=== PATIENT | female | born 1960 | race Caucasian/White ===

== ENCOUNTER 2022-09-21 21:20 | Inpatient (IN) | payer BC ==
[~2022-09-21] VITALS: Ht 162.6 cm; Wt 102.5 kg
[2022-09-21] MEDS ORDERED: methylPREDNISolone 125 MG (Solu-MEDROL) VIAL IV STA (21:29)
[2022-09-21] MEDS ORDERED: RT-ALBUTEROL SULF 2.5 MG/3 ML PRE-MIX VIAL INH STA (21:29)
[2022-09-21] MEDS ORDERED: RT-ALBUTEROL/IPRATROPIUM 3 ML (DUONEB) VIAL INH ONE (21:30)
[2022-09-21] MEDS ORDERED: ASPIRIN 81 MG CHEW (CHILDREN'S ASA) PO ONE (21:30)
--- NOTE | 2022-09-21 21:38 | ED Respiratory ---
General Chief Complaint: Respiratory Problems Stated Complaint: SOA Nursing Triage Note: PT AMB TO ED BY POV WITH C/O SOB. PT REPORTS SHE IS CHRONICALLY SOB, BUT AT HOME PULSE OX READ 45-50% TODAY. PT REPORTS SHE HAS HAD NAUSEA AND INTERMITTENT DIARRHEA SINCE August. DENIES CP, FEVER, COUGH OR CONGESTION. Source: patient History of Present Illness Date Seen by Provider: Sep 21, 2022 Time Seen by Provider: 21:25 Initial Comments PT ARRIVES VIA POV FROM HOME, WITH A FEMALE FRIEND. C/O SHORTNESS OF BREATH PT IS A FORMER SMOKER, AND STATES SHE IS CHRONICALLY SHORT OF BREATH, BUT WORSE TODAY. SHE CHECKED HER O2 SAT AT HOME AND IT WAS 45-50% ON ROOM AIR. SHE DOES NOT HAVE HOME O2 OR INHALER OR NEBULIZER SHE DENIES CHEST PAIN DENIES FEVER DENIES COUGH. HAS HAD SWELLING IN LEGS--HAD OUTPATIENT VENOUS DOPPLER OF LEFT LEG TODAY, RESULTS UNKNOWN. NO CALF PAIN NO PALPITATIONS. SHE HAS HAD NAUSEA AND DIARRHEA OFF AND ON SINCE 09/14/22 SHE HAS HISTORY OF HTN, HYPERLIPIDEMIA, NIDDM. SHE SMOKED 1 PPD, QUIT AGE 48. DENIES ANY HISTORY OF DIAGNOSED RESPIRATORY PROBLEMS. SHE DENIES ETOH OR DRUG USE SHE HAS HAD CHOLECYSTECTOMY, APPENDECTOMY, HYST/BSO, PARTIAL VULVECTOMY FOR V.I.N. SHE HAS HAD COVID VACCINE X 1. SHE STATES SHE HAS HAD COVID TWICE--"MILD CASES" --LAST TIME WAS APRIL OF THIS YEAR. NO TREATMENT, PER PT. NO RECENT TRAVEL OR PROLONGED SITTING, ETC. PT MOVED HERE ABOUT A YEAR AGO FROM [place], [place]-AND HAD MOVED THERE FROM [place], [place] PCP: ALPESH DONG Allergies and Home Medications Allergies Coded Allergies: Sulfa (Sulfonamide Antibiotics) (Verified Allergy, Unknown, 09/21/22) lisinopril (Verified Allergy, Unknown, 09/21/22) metronidazole (Verified Allergy, Unknown, 09/21/22) Patient Home Medication List Home Medication List Reviewed: Yes Review of Systems Review of Systems Constitutional: no symptoms reported; No diaphoresis, No fever EENTM: no symptoms reported Respiratory: see HPI; No cough; short of breath Cardiovascular: No chest pain; edema; No palpitations, No syncope, No vascular heart diseas Gastrointestinal: see HPI; No abdominal pain; diarrhea, nausea; No vomiting Genitourinary: no symptoms reported Musculoskeletal: no symptoms reported Skin: no symptoms reported Psychiatric/Neurological: No Symptoms Reported Hematologic/Lymphatic: No Symptoms Reported Immunological/Allergic: no symptoms reported Past Brnxovl-Uzmlsz-Carkqk Hx Patient Social History Tobacco Use?: Yes Tobacco type used: Cigarettes Smoking Status: Former Smoker Use of E-Cig and/or Vaping dev: No Substance use?: No Alcohol Use?: No Pt feels they are or have been: No Immunizations Up To Date Influenza Vaccine Up-to-Date: No; Not Current First/Initial COVID19 Vaccinat: X1 Past Medical History Surgery/Hospitalization HX: DM2 Surgeries: Yes Appendectomy, Gallbladder, Hysterectomy, Oophorectomy, Orthopedic Respiratory: Yes (CHRONIC DYSPNEA) Cardiac: Yes High Cholesterol, Hypertension Neurological: No Reproductive Disorders: Yes (V.I.N.--S/P PARTIAL VULVECTOMY; HYST/BSO) Female Reproductive Disorders: Menstrual Problems 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 -RIGHT KNEE SCOPE Physical Exam Vital Signs - First Documented Capillary Refill : Less Than 3 Seconds Height: '" Weight: lbs. oz. kg; 35.00 BMI Method: General Appearance: WD/WN, no apparent distress, other (PT IS TALKING IN FULL SENTENCES, LAUGHING, DOES NOT APPEAR TO BE IN ANY DISCOMFORT OR DISTRESS AND IS VERY NON-CHALANT. VERY PLEASANT. SHE WALKS IN ON HER OWN WITHOUT DIFFICULTY. 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 therapist II-XII nml as tested, no motor/sensory deficits, alert, normal mood/affect, oriented x 3 Skin: normal color, warm/dry; No rash Focused Exam Sepsis Stage: Sepsis Possible Source: Pulmonary Lactate Level 09/21/22 21:30: Lactic Acid Level 2.30*H Time of Focused Exam: 23:00 Respiratory: No Accessory Muscle Use, No Respiratory Distress, Rales (RLL) Cardiovascular: No Murmur, Normal Peripheral Pulses, Tachycardia Capillary Refill: Less Than 3 Seconds Skin: normal color, warm/dry Lactic Acid Level Laboratory Tests Test 09/21/22 21:30 Lactic Acid Level 2.30 MMOL/L (0.50-2.00) *H Within 3hrs of presentation: Admin fluids, Admin ABX, Blood cultures prior to ABX's, Focus exam, Lactate level Progress/Results/Core Measures Suspected Sepsis SIRS Temperature: Pulse: 118 Respiratory Rate: 22 Laboratory Tests 09/21/22 21:30: White Blood Count 13.7H Blood Pressure 158 /101 Mean: 120 09/21/22 21:30: Lactic Acid Level 2.30*H Laboratory Tests 09/21/22 21:30: Creatinine 0.85, INR Comment 1.0, Platelet Count 240, Total Bilirubin 0.8 Results/Orders Lab Results Laboratory Tests Test 09/21/22 21:28 09/21/22 21:30 09/21/22 21:46 09/21/22 23:09 Range/Units Influenza Type A (RT-PCR) Not Detected Not Detecte Influenza Type B (RT-PCR) Not Detected Not Detecte SARS-CoV-2 RNA (RT-PCR) Not Detected Not Detecte White Blood Count 13.7 H 4.3-11.0 10^3/uL Red Blood Count 5.16 H 3.80-5.11 10^6/uL Hemoglobin 11.0 L 11.5-16.0 g/dL Hematocrit 41 35-52 % Mean Corpuscular Volume 80 80-99 fL Mean Corpuscular Hemoglobin 21 L 25-34 pg Mean Corpuscular Hemoglobin Concent 27 L 32-36 g/dL Red Cell Distribution Width 19.9 H 10.0-14.5 % Platelet Count 240 130-400 10^3/uL Mean Platelet Volume 12.1 9.0-12.2 fL Immature Granulocyte % (Auto) 1 % Neutrophils (%) (Auto) 84 H 42-75 % Lymphocytes (%) (Auto) 8 L 12-44 % Monocytes (%) (Auto) 6 0-12 % Eosinophils (%) (Auto) 0 0-10 % Basophils (%) (Auto) 1 0-10 % Neutrophils # (Auto) 11.5 H 1.8-7.8 10^3/uL Lymphocytes # (Auto) 1.1 1.0-4.0 10^3/uL Monocytes # (Auto) 0.8 0.0-1.0 10^3/uL Eosinophils # (Auto) 0.0 0.0-0.3 10^3/uL Basophils # (Auto) 0.1 0.0-0.1 10^3/uL Immature Granulocyte # (Auto) 0.1 0.0-0.1 10^3/uL Neutrophils % (Manual) 80 % Lymphocytes % (Manual) 5 % Monocytes % (Manual) 7 % Band Neutrophils 6 % Nucleated Red Blood Cells 4 Reactive Lymphocytes 2 % Percent Immature Platelet Fraction 9.9 H 0.0-7.6 % Polychromasia MODERATE Hypochromasia SLIGHT Anisocytosis MODERATE Prothrombin Time 13.6 12.2-14.7 SEC INR Comment 1.0 0.8-1.4 Activated Partial Thromboplast Time 29 24-35 SEC D-Dimer 0.79 H 0.00-0.49 UG/ML Sodium Level 137 135-145 MMOL/L Potassium Level 4.4 3.6-5.0 MMOL/L Chloride Level 99 98-107 MMOL/L Carbon Dioxide Level 27 21-32 MMOL/L Anion Gap 11 5-14 MMOL/L Blood Urea Nitrogen 14 7-18 MG/DL Creatinine 0.85 0.60-1.30 MG/DL Estimat Glomerular Filtration Rate 76 BUN/Creatinine Ratio 16 Glucose Level 166 H 70-105 MG/DL Lactic Acid Level 2.30 *H 0.50-2.00 MMOL/L Calcium Level 10.6 H 8.5-10.1 MG/DL Corrected Calcium 10.7 H 8.5-10.1 MG/DL Magnesium Level 2.1 1.6-2.4 MG/DL Total Bilirubin 0.8 0.1-1.0 MG/DL Aspartate Amino Transf (AST/SGOT) 33 5-34 U/L Alanine Aminotransferase (ALT/SGPT) 22 0-55 U/L Alkaline Phosphatase 89 40-136 U/L Total Creatine Kinase 28 L 29-168 U/L Creatine Kinase MB 0.7 <6.6 NG/ML Myoglobin 25.8 10.0-92.0 NG/ML Troponin I 0.072 H <0.028 NG/ML B-Type Natriuretic Peptide 294.2 H <100.0 PG/ML Total Protein 7.4 6.4-8.2 GM/DL Albumin 3.9 3.2-4.5 GM/DL Blood Gas Puncture Site RRAD Blood Gas Patient Temperature 37.6 Arterial Blood pH 7.36 L 7.37-7.43 Arterial Blood Partial Pressure CO2 59 H 35-45 MMHG Arterial Blood Partial Pressure O2 71 L 79-93 MMHG Arterial Blood HCO3 32 H 23-27 MMOL/L Arterial Blood Total CO2 34.2 H 21.0-31.0 MMOL/L Arterial Blood Oxygen Saturation 94 94-100 % Arterial Blood Base Excess 7.2 H -2.5-2.5 MMOL/L Zenon Test YES-POS Blood Gas Ventilator Setting NO Blood Gas Inspired Oxygen 10 My Orders Orders - CAROL DAVISON DO Ed Iv/Invasive Line Start (09/21/22 21:24) Ekg Tracing (09/21/22 21:24) O2 (09/21/22 21:24) Monitor-Rhythm Ecg Trace Only (09/21/22 21:24) Chest 1 View, Ap/Pa Only (09/21/22 21:24) Bnp [place] (09/21/22 21:24) Cbc With Automated Diff (09/21/22 21:24) Comprehensive Metabolic Panel (09/21/22 21:24) Creatine Kinase (09/21/22 21:24) Creatine Kinase Mb (09/21/22 21:24) Fibrin Degradation Products (09/21/22 21:24) Lactic Acid Analyzer (09/21/22 21:24) Magnesium (09/21/22 21:24) Protime With Inr (09/21/22 21:24) Partial Thromboplastin Time (09/21/22 21:24) Ua Culture If Indicated (09/21/22 21:24) Blood Culture (09/21/22 21:24) Myoglobin Serum (09/21/22 21:24) Troponin I Janie (09/21/22 21:24) Covid 19 Inhouse Test (09/21/22 21:24) Sputum Culture (09/21/22 21:24) Urine Culture (09/21/22 21:24) Ed Iv/Invasive Line Start (09/21/22 21:24) Ed Iv/Invasive Line Start (09/21/22 21:24) Vital Signs Adult Sepsis Patie Q15M (09/21/22 21:24) O2 (09/21/22 21:24) Remove Rings In Anticipation O (09/21/22 21:24) Influenza A And B By Pcr (09/21/22 21:24) Albuterol Pre-Mix Nebs (Rt) (Proventil (09/21/22 21:29) Albuterol/Ipra Inhalation Soln (Duoneb I (09/21/22 21:30) Dexamethasone Injection (Decadron Injec (09/21/22 21:30) Rt Request For Service (09/21/22 21:29) Methylprednisolone Sod Succ (Solu-Medrol (09/21/22 21:29) Svn Small Volume Nebulizer (09/21/22 21:29) Svn Small Volume Nebulizer (09/21/22 21:29) Aspirin Chewable Tablet (Baby Aspirin Ch (09/21/22 21:30) Ceftriaxone Iv/Im (Rocephin Iv/Im) (09/21/22 22:00) Azithromycin Injection (Zithromax Inject (09/21/22 22:00) Arterial Blood Gas (09/21/22 21:52) Manual Differential (09/21/22 21:30) Arterial Blood Draw - Obtain (09/21/22 ) Ct Angio Chest W (R/O Pe) (09/21/22 22:17) Ed Iv/Invasive Line Start (09/21/22 22:53) Ns Iv 1000 Ml (Sodium Chloride 0.9%) (09/21/22 23:00) Iohexol Injection (Omnipaque 350 Mg/Ml 1 (09/21/22 23:00) Received Contrast (Hold Metformin- Contr (09/21/22 23:00) Sodium Chloride Flush (Catheter Flush Sy (09/21/22 23:00) Ns (Ivpb) (Sodium Chloride 0.9% Ivpb Bag (09/21/22 23:00) Medications Given in ED Current Medications Medications Dose Ordered Sig/Evelyne Route Start Time Stop Time Status Last Admin Dose Admin Albuterol/ Ipratropium 3 ml ONCE ONCE INH 09/21/22 21:30 09/21/22 21:32 DC 09/21/22 21:54 3 ML Aspirin 324 mg ONCE ONCE PO 09/21/22 21:30 09/21/22 21:32 DC 09/21/22 21:42 324 MG Azithromycin 500 mg/Sodium Chloride 255 ml @ 250 mls/hr ONCE ONCE IV 09/21/22 22:00 09/21/22 23:01 DC 09/21/22 22:22 250 MLS/HR Ceftriaxone Sodium 1000 mg/ Sodium Chloride 50 ml @ 100 mls/hr ONCE ONCE IV 09/21/22 22:00 09/21/22 22:29 DC 09/21/22 22:02 100 MLS/HR Dexamethasone Sodium Phosphate 20 mg ONCE ONCE IH 09/21/22 21:30 09/21/22 21:32 DC 09/21/22 21:54 20 MG Iohexol 100 ml ONCE ONCE IV 09/21/22 23:00 09/21/22 23:01 DC 09/21/22 23:01 85 ML Sodium Chloride 10 ml NEEDED PRN IV 09/21/22 23:00 09/21/22 23:02 10 ML Sodium Chloride 100 ml ONCE ONCE IV 09/21/22 23:00 09/21/22 23:01 DC 09/21/22 23:02 80 ML Vital Signs/I&O 09/21/22 09/21/22 09/21/22 09/21/22 21:23 21:23 21:55 22:15 Temp 37.6 Pulse 118 112 Resp 22 23 B/P (MAP) 158/101 (120) Pulse Ox 94 94 94 94 O2 Delivery Simple Mask Simple Mask O2 Flow Rate 15.00 15.00 8.00 100.00 Capillary Refill : Less Than 3 Seconds Blood Pressure Mean: 120 Progress Note : Progress Note VITALS ON ARRIVAL: TEMP 37.6=99.6, HR 113, BP 158/101, RR O2 SAT 60% ON ROOM AIR. PLACED IN ISOLATION ROOM PPE WORN COVID AND FLU TESTING DONE PT IMMEDIATELY PLACED ON O2 AT 15L/NRB AND O2 SATS UP TO 95% RT CONTACTED, AND PT GIVEN NEB TREATMENT AND PLACED ON BIPAP, WITH O2 SATS UP TO 100% LABS INCLUDING ABG'S, CBC, CMP, BNP, TROPONIN, COAGULATION STUDIES, D-DIMER, LACTIC ACID AND BLOOD CULTURES ORDERED IN ADDITION TO CXR AND EKG, AND CT CHEST ANGIOGRAM REVIEWED OUTPATIENT LEFT LOWER EXTREMITY DOPPLER TEST DONE EARLIER TODAY, AND WAS NEGATIVE FOR DVT. GIVEN: -ASPIRIN -SOLU-MEDROL -NEB TREATMENTS -ROCEPHIN + ZITHROMAX -IV FLUIDS--NO AGGRESSIVE FLUIDS, PT IS ALREADY HYPOXIC, WITH ELEVATED TROPONIN AND BNP, WITHOUT HYPOTENSION. -LOVENOX NO DETERIORATION IN PT'S CONDITION DURING ER STAY. VITALS STABLE. PT REMAINED AFEBRILE, NO HYPOTENSION, O2 SATS STAYED 98-100% ON BIPAP. PT STATES SHE FEELS BETTER AT TIME OF ADMIT. PERTINENT LABS: CBC WITH WBC 13.7, HGB 11.0 CMP WITH NORMAL ELECTROLYTES, BUN 14, CR 0.85, GLU 166, CA 10.6 TROPONIN 0.072 BNP 294 D-DIMER 0.79 UA--TRACE LEUKOCYTES, MODERATE BACTERIA, 2-5 WBC ABG'S--PH 7.36, PCO2 59, PO2 71, HCO3 32, O2 SAT 94 ON 10L/NRB EKG UNREMARKABLE CXR WITH RLL INFILTRATE CT CHEST ANGIOGRAM WITH RLL PULMONARY EMBOLISM, WITHOUT PULMONARY INFARCT. DISCUSSED TEST RESULTS, NEED FOR ADMIT AND PT IS AGREEABLE TO PLAN PT WISHES TO BE A FULL CODE. NO PRIOR VISITS HERE COMPUTER SYSTEM SHUT DOWN DURING PT'S ER STAY ECG Initial ECG Impression Date: Sep 21, 2022 Initial ECG Impression Time: 21:40 Initial ECG Rate: 110 Initial ECG Rhythm: S.Tach Initial ECG Intervals: Normal Initial ECG Impression: Nonspecific Changes Initial ECG Comparisson: No Previous ECG Available Comment INTERPRETED BY ME Diagnostic Imaging Comments CXR--PER RADIOLOGIST REPORT AT 2150 Portable chest 9:27 PM There is some increased density in the right medial lung base that could be developing infiltrate. There is no effusion or pneumothorax. Heart size is normal. IMPRESSION: Suspected developing infiltrate right medial lung base. CT CHEST ANGIOGRAM--PER [facility] RADIOLOGIST VIA PHONE AT [phone] AND VIA FAX AT [phone] -RLL PULMONARY EMBOLUS, NO PULMONARY INFARCT. -NON-OCCLUSIVE PULMONARY EMBOLI WITHIN RLL SUBSEGMENTAL PULMONARY ARTERIES. -BILATERAL DEPENDENT ATELECTASIS RIGHT > LEFT. NO LOBAR CONSOLIDATIONS. NO EFFUSIONS. -NO CARDIOMEGALY, NO SIGNIFICANT PERICARDIAL EFFUSION, NO EVIDENCE OF RV DYSFUNCTION. -NO ENLARGED LYMPH NODES Reviewed: Reviewed by Me Departure Communication (Admissions) 2333--SPOKE WITH DR. DELEON, HOSPITALIST, ACCEPTS PT FOR ADMIT. 2334--REPORT TO E-ICU PHYSICIAN. Impression Primary Impression: Acute respiratory failure with hypoxia and hypercapnia Additional Impressions: RLL pneumonia Former smoker Sepsis Elevated troponin Elevated brain natriuretic peptide (BNP) level Right pulmonary embolus HTN (hypertension) NIDDM Disposition: ADMITTED INPATIENT Condition: Improved Admissions Decision to Admit Reason: Admit from ER (General) Decision to Admit/Date: Sep 21, 2022 Time/Decision to Admit Time: 23:35 Departure-Patient Inst. Referrals: RODRÍGUEZ DONG APRN (PCP/Family) Primary Care Physician CAROL DAVISON DO Sep 21, 2022 21:38
--- NOTE | 2022-09-21 21:41 | Diagnostic Imaging Report ---
INDICATION: Shortness of breath Portable chest 9:27 PM There is some increased density in the right medial lung base that could be developing infiltrate. There is no effusion or pneumothorax. Heart size is normal. IMPRESSION: Suspected developing infiltrate right medial lung base. Dictated by: Dictated on workstation # [id number]
[2022-09-21 21:54] LABS: BASOPHILS # (AUTO) 0.1 10^3/uL (0.0-0.1); BASOPHILS % (AUTO) 1 % (0-10); EOSINOPHILS % (AUTO) 0 % (0-10); HEMATOCRIT 41 % (35-52); LYMPHOCYTES # (AUTO) 1.1 10^3/uL (1.0-4.0); LYMPHOCYTES % (AUTO) 8 % (12-44); MEAN CORPUSCULAR HEMOGLOBIN 21 pg (25-34); MEAN CORPUSCULAR HGB CONC 27 g/dL (32-36); MEAN CORPUSCULAR VOLUME 80 fL (80-99); MEAN PLATELET VOLUME 12.1 fL (9.0-12.2); MONOCYTES # (AUTO) 0.8 10^3/uL (0.0-1.0); MONOCYTES % (AUTO) 6 % (0-12); NEUTROPHILS # (AUTO) 11.5 10^3/uL (1.8-7.8); NEUTROPHILS % (AUTO) 84 % (42-75); PLATELET COUNT 240 10^3/uL (130-400); WHITE BLOOD COUNT 13.7 10^3/uL (4.3-11.0)
[2022-09-21 21:57] LABS: ABG BASE EXCESS 7.2 MMOL/L (-2.5-2.5); ABG OXYGEN SATURATION 94 % (94-100); ABG PCO2 59 MMHG (35-45); ABG PH 7.36 (7.37-7.43); ABG PO2 71 MMHG (79-93); ABG TCO2 34.2 MMOL/L (21.0-31.0); ALLENS TEST YES-POS; INSPIRED O2 10; PATIENT TEMP 37.6; VENTILATOR NO
[2022-09-21] MEDS ORDERED: AZITHROMYCIN INJECTION 500 MG in NS (IVPB) 250 ML IV ONE (22:00)
[2022-09-21] MEDS ORDERED: cefTRIAXone IV/IM 1,000 MG in NS (IVPB) 50 ML IV ONE (22:00)
[2022-09-21 22:05] LABS: PROTHROMBIN TIME PATIENT 13.6 SEC (12.2-14.7)
[2022-09-21 22:10] LABS: ALBUMIN 3.9 GM/DL (3.2-4.5); POTASSIUM 4.4 MMOL/L (3.6-5.0)
[2022-09-21 22:12] LABS: CALCIUM 10.6 MG/DL (8.5-10.1)
[2022-09-21 22:13] LABS: TOTAL PROTEIN 7.4 GM/DL (6.4-8.2)
[2022-09-21 22:15] LABS: BILIRUBIN,TOTAL 0.8 MG/DL (0.1-1.0)
[2022-09-21 22:16] LABS: CREATININE SERUM 0.85 MG/DL (0.60-1.30)
[2022-09-21 22:19] LABS: MAGNESIUM 2.1 MG/DL (1.6-2.4)
[2022-09-21 22:27] LABS: CREATINE KINASE MB 0.7 NG/ML (<6.6)
[2022-09-21 22:28] LABS: BAND NEUTROPHILS 6 %; HYPOCHROMASIA SLIGHT; LYMPHOCYTES % (MANUAL) 5 %; MONOCYTES % (MANUAL) 7 %; NEUTROPHILS % (MANUAL) 80 %; NUCLEATED RED BLOOD CELLS 4; POLYCHROMASIA MODERATE; REACTIVE LYMPHOCYTES 2 %
[2022-09-21 22:29] LABS: ANISOCYTOSIS MODERATE
[2022-09-21 22:53] LABS: FIBRIN DEGRADATION PRODUCTS 0.79 UG/ML (0.00-0.49)
[2022-09-21] MEDS ORDERED: NS 100 ML (IVPB) BAG IV ONE (23:00)
[2022-09-21] MEDS ORDERED: IOHEXOL 350 MG/ML 100 ML (OMNIPAQUE 350) VIAL IV ONE (23:00)
[2022-09-21] MEDS ORDERED: HOLD METFORMIN - RECEIVED CONTRAST 20 ML VIAL IV SCH (23:00)
[2022-09-21] MEDS ORDERED: CATHETER FLUSH 10 ML SYR IV PRN (23:00)
[2022-09-21] MEDS ORDERED: NS IV 1000 ML 1,000 ML IV SCH (23:00)
[2022-09-21 23:14] LABS: BILIRUBIN,URINE NEGATIVE (NEGATIVE); CLARITY,URINE SL CLOUDY; COLOR,URINE YELLOW; GLUCOSE, URINE (UA) NEGATIVE (NEGATIVE); KETONES,URINE NEGATIVE (NEGATIVE); LEUKOCYTE ESTERASE ,URINE TRACE (NEGATIVE); NITRITE,URINE NEGATIVE (NEGATIVE); PROTEIN,URINE 1+ (NEGATIVE)
[2022-09-21 23:24] LABS: BACTERIA,URINE MODERATE /HPF; HYALINE CASTS, URINE 0-2 /LPF; RBC,URINE RARE /HPF
[2022-09-21] MEDS ORDERED: ENOXAPARIN 100 MG/1 ML (LOVENOX) SYR SC ONE (23:30)
--- NOTE | 2022-09-21 23:56 | Tele-ICU Progress Note ---
Subjective Date Seen by a Provider: Sep 21, 2022 Subjective/Events-last exam This virtual visit was conducted using real time audio/video. Thank you for asking us to see this patient for hypoxic and hypercapnic respiratory insufficiency due to B pna and R PE. Probable undiagnosed COPD also in view of pH balanced hypercapnia. Initial ER O2 sat 60%. PMH: HTN, HL, DM2. SH: smoking history quit FH: Non-contributory ROS: as in HPI PE: VSS. O2 sat 98% on biPAP HEENT: No obvious masses, adenopathy or JVD. Chest: R sided rales on auscultation. CV: RRR S1 S2 No murmur or added sounds. Abd: Non-tender. Bowel sounds Y. : Unremarkable. 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 No obvious focal findings. Extremities: Trace edema. Capillary refill < 3 seconds. Skin: unremarkable. Results: Elevated WCC 13.7, Lactate 2.3, BNP 294. Decreased Hb 11.0. AB'36/59/71 on 10 LPM. CXR: RLL infilt. CTAC: B pna, R PE. Available chart/ vitals / labs / images reviewed. Video assessment done using teleICU camera, rest of exam as per RN. A/P: Respiratory insufficiency: Continue present management with BiPAP, PRN duonebs, Medrol Monitor for increasing oxygenation needs and/or need for intubation. Critical Care: critically ill patient. Cont. abx, Lovenox. Discussed with RISHI Sanchez and ER MD Dr. Rodriguez. Asked RN to reach out to eICU if any questions or concerns later. Time spent with patient/coordination of care with other health professionals (mins): 25 Sepsis Event Evaluation Height, Weight, BMI Height: '" Weight: lbs. oz. kg; 35.00 BMI Method: Focused Exam Lactate Level 09/21/22 21:30: Lactic Acid Level 2.30*H 09/21/22 23:30: Time of Focused Exam: 23:00 Lactic Acid Level Laboratory Tests Test 09/21/22 21:30 09/21/22 23:30 Lactic Acid Level 2.30 MMOL/L (0.50-2.00) *H Exam Exam Patient acknowledged, consented, and participated in this virtual visit which was conducted using real time audio/video Vital Signs Date Time Temp Pulse Resp B/P (MAP) Pulse Ox O2 Delivery O2 Flow Rate FiO2 09/21/22 22:15 112 23 94 100.00 09/21/22 21:55 94 8.00 09/21/22 21:23 94 Simple Mask 15.00 09/21/22 21:23 37.6 118 22 158/101 (120) 94 Simple Mask 15.00 Height & Weight Height: '" Weight: lbs. oz. kg; 35.00 BMI Method: General Appearance: No Apparent Distress HEENT: Normal ENT Inspection Respiratory: No Accessory Muscle Use, No Respiratory Distress, Rales (RLL) Cardiovascular: Regular Rate, Rhythm (See free text.), No Murmur, Normal Peripheral Pulses, Tachycardia Capillary Refill: Less Than 3 Seconds Peripheral Pulses: 1+ Dorsalis Pedis (R), 1+ Left Dors-Pedis (L) Gastrointestinal: non tender, soft Results Lab Laboratory Tests 09/21/22 21:30 Assessment/Plan Assessment/Plan See free text. Critical Care: Critically Ill Patient (See free text.) PRAFUL PAREDES MD Sep 21, 2022 23:56
[2022-09-22] MEDS ORDERED: fentaNYL INJ 100 MCG/2 ML AMP IV PRN (03:00)
[2022-09-22] MEDS ORDERED: ONDANSETRON 4 MG/2 ML (SDV) Z0FRAN IV PRN (03:00)
[2022-09-22] MEDS ORDERED: EPINEPHrine 1 MG INJECTION 4 MG in NS (IVPB) 248 ML IV SCH (03:00)
[2022-09-22] MEDS ORDERED: ACETAMINOPHEN 500 MG TAB (TYLENOL) PO PRN (03:00)
[2022-09-22] MEDS: NOREPINEPHRINE 8 MG/250 ML 250 ML IV SCH ×2 (03:43→17:25)
[2022-09-22] MEDS: VASOPRESSIN INJECTION 20 UNIT in NS (IVPB) 100 ML IV SCH ×2 (03:43→14:54)
[2022-09-22 05:18] LABS: BASOPHILS # (AUTO) 0.1 10^3/uL (0.0-0.1); BASOPHILS % (AUTO) 0 % (0-10); LYMPHOCYTES % (AUTO) 4 % (12-44)
[2022-09-22 05:20] LABS: EOSINOPHILS % (AUTO) 0 % (0-10); HEMATOCRIT 41 % (35-52); HEMOGLOBIN 10.8 g/dL (11.5-16.0); LYMPHOCYTES # (AUTO) 0.7 10^3/uL (1.0-4.0); MEAN CORPUSCULAR HEMOGLOBIN 22 pg (25-34); MEAN CORPUSCULAR HGB CONC 26 g/dL (32-36); MEAN CORPUSCULAR VOLUME 81 fL (80-99); MONOCYTES # (AUTO) 0.2 10^3/uL (0.0-1.0); MONOCYTES % (AUTO) 1 % (0-12); NEUTROPHILS # (AUTO) 14.9 10^3/uL (1.8-7.8); NEUTROPHILS % (AUTO) 94 % (42-75); PLATELET COUNT 209 10^3/uL (130-400); WHITE BLOOD COUNT 15.9 10^3/uL (4.3-11.0)
[2022-09-22 05:30] LABS: ALBUMIN 3.8 GM/DL (3.2-4.5); POTASSIUM 4.6 MMOL/L (3.6-5.0)
[2022-09-22 05:31] LABS: CALCIUM 10.2 MG/DL (8.5-10.1)
[2022-09-22 05:33] LABS: TOTAL PROTEIN 7.1 GM/DL (6.4-8.2)
[2022-09-22 05:35] LABS: BILIRUBIN,TOTAL 0.4 MG/DL (0.1-1.0)
[2022-09-22 05:36] LABS: CREATININE SERUM 0.81 MG/DL (0.60-1.30); PHOSPHORUS 3.9 MG/DL (2.3-4.7)
[2022-09-22 05:39] LABS: MAGNESIUM 2.2 MG/DL (1.6-2.4)
--- NOTE | 2022-09-22 06:27 | Diagnostic Imaging Report ---
INDICATION: 62-year-old female with shortness of breath, hypoxia, assess for pulmonary embolism. COMPARISONS: None TECHNIQUE: Helical axial tomographic images of the chest are obtained at 3 mm intervals. Multiplanar reconstructions are provided for interpretation including MIP images. FINDINGS: There are few shotty benign-appearing axillary nodes but no evidence of axillary adenopathy. There is also few small mediastinal or hilar nodes but no significant hilar or mediastinal adenopathy. Cardiac contour is normal. Thoracic aortic contour is also normal with no evidence of aneurysm or dissection. Pulmonary outflow tract as well as the right and left pulmonary arteries, their segmental branches are patent. The subsegmental branches of right lower lobe pulmonary artery, however, does show nonocclusive thrombus consistent with a pulmonary embolism. Lungs show coarse interstitial opacities. There is bilateral lower lobe consolidations, right greater than left. There is no effusion or pneumothorax. Limited assessment of the abdomen shows no overall gross abnormalities. IMPRESSION: 1. CT angiographic findings are consistent with pulmonary embolism with nonocclusive thrombus in subsegmental branches of the right lower lobe pulmonary artery. 2. Bilateral lower lobe consolidation with few scattered 5 lobe interstitial infiltrates probably atelectatic in nature. 3. There is no evidence of aortic aneurysm or dissection. 4. Few shotty benign-appearing axillary, hilar or mediastinal nodes are seen but no significant adenopathy. Additional nonemergent findings as described above. Agree with [facility] report. Dictated by: Dictated on workstation # [id number]
[2022-09-22] MEDS: inSUlin ASPART (NovoLOG) 1 UNIT/0.01 ML (CHARGE PER UNIT) SC SCH ×4 (06:46→21:08)
[2022-09-22] MEDS: NS IV 1000 ML 1,000 ML IV SCH ×2 (06:46→09:49)
[2022-09-22] MEDS: RT-ALBUTEROL/IPRATROPIUM 3 ML (DUONEB) VIAL INH SCH ×5 (07:08→22:08)
[2022-09-22] MEDS: ASPIRIN E.C. 81 MG (ECOTRIN) TAB PO SCH (08:45)
--- NOTE | 2022-09-22 08:46 | Consultation-Cardiology ---
HPI-Cardiology Cardiology Consultation: Date of Consultation 09/22/22 Time Seen by a Provider: 08:15 Date of Admission 09-21-22 Attending Physician Jenise Miller Aprn Admitting Physician Admitting Physician: Janelle Reynoso DO Attending Physician: Janelle Reynoso DO Consulting Physician Hallie Moreno MD HPI: Chief Complaint: Resp failure PE Pneumonia Ms. Jimenes is a 62 yr old female admitted to ICU 11 from the ED. She reports last week (Monday) she developed severe abd pain with assoc nausea and poor appetite. She reports the next day she went to [place] to visit her daughter for 5 days. She reports the abd pain and poor appetite persisted. She states she got up Monday morning to go to work and noted her legs to be swollen, L>R. She states she notified her PCP and was sent for a venous doppler. She reports she does note she had some SOB at that time. She states she saw her PCP and at that time her sats were in the 50's per pulse ox. She was advised ED, but did not want to go as she felt the reading was incorrect. She reports she continued to feel generally unwell and SOB. She reports she did have chills, but no fever. She states yesterday morning her daughter had called her at home, but she was groggy and disoriented with increasing SOB. Her daughter advised her to come to the ED. She called a friend who brought her to the ED. She reports her SOB is better this morning. She reports she does have a ESPITIA this morning. No c/o CP, palpitations, syncope or near syncope. Review of Systems-Cardiology Review of Systems Constitutional: As described under HPI Eyes: No vision change Ears/Nose/Throat: No epistaxis, No recent hearing loss Respiratory: As described under HPI Cardiovascular: As described under HPI Gastrointestinal: As described under HPI Genitourinary: No dysuria, No hematuria Musculoskeletal: no symptoms reported Skin: No rash on exposed areas, No ulcerations on exposed areas Psychiatric/Neurological: No anxiety, No depression, No seizure, No focal weakness, No syncope Hematologic: No bleeding abnormalities XWV-Nzphwr-Fmefvy Hx Patient Social History Smoking Status: Former Smoker Alcohol Use?: No Pt feels they are or have been: No Tobacco type used: Cigarettes Past Medical History PMH As described under Assessment. Family Medical History Family Medical History: No reported family h/o CAD Allergies and Home Medications Allergies Coded Allergies: Sulfa (Sulfonamide Antibiotics) (Verified Allergy, Unknown, 09/21/22) lisinopril (Verified Allergy, Unknown, 09/21/22) metronidazole (Verified Allergy, Unknown, 09/21/22) Patient Home Medication List Albuterol Sulfate (Ventolin Hfa) 90 Mcg Hfa.aer.ad, 2 PUFF INH Q4H PRN for SHORTNESS OF BREATH, (Reported) Entered as Reported by: LUKE FLOREZ on 09/22/221229 Last Action: Held Amlodipine Besylate (Amlodipine Besylate) 5 Mg Tablet, 5 MG PO DAILY, (Reported) Entered as Reported by: LUKE FLOREZ on 09/22/221229 Last Action: Continued Aspirin (Aspirin) 81 Mg Tab.chew, 81 MG PO DAILY, (Reported) Entered as Reported by: LUKE FLOREZ on 09/22/221229 Last Action: Continued Cholecalciferol (Vitamin D3) (Vitamin D3) 125 Mcg (5000 Unit) Tablet, 125 MCG PO DAILY, (Reported) Entered as Reported by: LUKE FLOREZ on 09/22/221229 Last Action: Continued Ferrous Sulfate (Ferosul) 325 Mg (65 Mg Iron) Tablet, 325 MG PO Q48H, (Reported) Entered as Reported by: LUKE FLOREZ on 09/22/221229 Last Action: Continued Fexofenadine HCl (Fexofenadine HCl) 180 Mg Tablet, 180 MG PO DAILY, (Reported) Entered as Reported by: LUKE FLOREZ on 09/22/221229 Last Action: Converted Fluticasone Propionate (Fluticasone Propionate) 50 Mcg/Actuation [place].susp, 1 SPRAY NSEACH BID PRN for CONGESTION, (Reported) Entered as Reported by: LUKE FLOREZ on 09/22/221229 Last Action: Continued Glimepiride (Glimepiride) 2 Mg Tablet, 2 MG PO DAILY, (Reported) Entered as Reported by: LUKE FLOREZ on 09/22/221229 Last Action: Continued Hydrochlorothiazide (Hydrochlorothiazide) 25 Mg Tablet, 25 MG PO DAILY, (Reported) Entered as Reported by: LUKE FLOREZ on 09/22/221229 Last Action: Continued Ibuprofen (Ibuprofen) 200 Mg Capsule, 800 MG PO Q8H PRN for PAIN-MILD (1-4), (Reported) Entered as Reported by: LUKE FLOREZ on 09/22/221229 Last Action: Held L.acidoph & Paracasei,B.lactis (Probiotic) 10 Billion Cell Capsule, 1 EACH PO DAILY, (Reported) Entered as Reported by: LUKE FLOREZ on 09/22/221229 Last Action: Converted Magnesium Oxide (Magnesium) 400 Mg Magnesium Tablet, 400 MG PO DAILY, (Reported) Entered as Reported by: LUKE FLOREZ on 09/22/221229 Last Action: Converted Ondansetron HCl (Ondansetron HCl) 4 Mg Tablet, 4 MG PO Q6H PRN for NAUSEA/VOMITING-1ST LINE, (Reported) Entered as Reported by: LUKE FLOREZ on 09/22/221229 Last Action: Converted Pravastatin Sodium (Pravastatin Sodium) 40 Mg Tablet, 40 MG PO DAILY, (Reported) Entered as Reported by: LUKE FLOREZ on 09/22/221229 Last Action: Converted Rimegepant Sulfate (Nurtec Odt) 75 Mg Tab.rapdis, 75 MG PO PRN Prescribed by: TOMMY HERNANDEZ on 09/22/221707 Last Action: Converted Ubidecarenone (Coq-10) 100 Mg Capsule, 100 MG PO DAILY, (Reported) Entered as Reported by: LUKE FLOREZ on 09/22/221229 Last Action: Held Valacyclovir HCl (Valacyclovir) 500 Mg Tablet, 500 MG PO DAILY, (Reported) Entered as Reported by: LUKE FLOREZ on 09/22/221229 Last Action: Continued Valsartan (Valsartan) 320 Mg Tablet, 320 MG PO DAILY, (Reported) Entered as Reported by: LUKE FLOREZ on 09/22/221229 Last Action: Converted Vitamin B Complex/Folic Acid (Super B Maxi Complex Caplet) 0.4 Mg Tablet, 0.4 MG PO DAILY, (Reported) Entered as Reported by: LUKE FLOREZ on 09/22/221229 Last Action: Held [Berberine W/Cinnamon] , 2 EA PO DAILY, (Reported) Entered as Reported by: LUKE FLOREZ on 7/6/23 1230 Last Action: Held Physical Exam-Cardiology Physical Exam Vital Signs/I&O 09/25/22 09/26/22 09/26/22 09/26/22 23:25 00:36 01:00 03:57 Temp 36.3 35.8 Pulse 74 94 61 58 Resp 16 12 B/P (MAP) 147/88 (107) 124/84 (97) Pulse Ox 97 95 96 O2 Delivery Nasal Cannula Nasal Cannula O2 Flow Rate 3.00 3.00 09/26/22 09/26/22 07:00 07:47 Temp 36.0 Pulse 65 63 Resp 16 B/P (MAP) 132/79 (96) Pulse Ox 92 O2 Delivery Nasal Cannula O2 Flow Rate 3.00 09/26/22 00:00 Intake Total 4192 ml Balance 4192 ml Capillary Refill : Less Than 3 Seconds Constitutional: AAO x 3, well-developed, well-nourished HEENT: PERRL, hearing is well preserved, oral hygience is good Neck: No carotid bruit; carotid pulses are 2 + bilaterally Respiratory: No accessory muscle use, No respiratory distress; chest expansion is symmetric, chest is bilaterally symmetric, other (coarse breath sounds lower lobes bilat) Cardiovascular: regular rate-rhythm; No JVD; S1 and S2 Gastrointestinal: soft, round; No guarding; audible bowel sounds Extremities: other (mild to mod bilat LE swelling) Neurologic/Psychiatric: other (moves all extremities) Skin: normal color, warm/dry; No rash on exposed areas, No ulcerations on exposed areas Data Review Labs Laboratory Tests 09/25/22 10:29: Glucometer 160H 09/25/22 15:29: Glucometer 105 09/25/22 21:10: Glucometer 146H 09/26/22 05:12: White Blood Count 9.2, Red Blood Count 4.64, Hemoglobin 9.7L, Hematocrit 36, Mean Corpuscular Volume 78L, Mean Corpuscular Hemoglobin 21L, Mean Corpuscular Hemoglobin Concent 27L, Red Cell Distribution Width 18.3H, Platelet Count 250, Mean Platelet Volume 12.2, Immature Granulocyte % (Auto) 1, Neutrophils (%) (Auto) 87H, Lymphocytes (%) (Auto) 9L, Monocytes (%) (Auto) 4, Eosinophils (%) (Auto) 0, Basophils (%) (Auto) 0, Neutrophils # (Auto) 8.0H, Lymphocytes # (Auto) 0.8L, Monocytes # (Auto) 0.4, Eosinophils # (Auto) 0.0, Basophils # (Auto) 0.0, Immature Granulocyte # (Auto) 0.1, Sodium Level 138, Potassium Level 4.5, Chloride Level 100, Carbon Dioxide Level 30, Anion Gap 8, Blood Urea Nitrogen 18, Creatinine 0.69, Estimat Glomerular Filtration Rate 97, BUN/Creatinine Ratio 26, Glucose Level 131H, Calcium Level 11.5H, Corrected Calcium 11.8H, Total Bilirubin 0.5, Aspartate Amino Transf (AST/SGOT) 14, Alanine Aminotransferase (ALT/SGPT) 26, Alkaline Phosphatase 73, Total Protein 6.3L, Albumin 3.6 Microbiology 09/21/22 Urine Culture - Final, Complete See Comments 09/21/22 Blood Culture - Preliminary, Resulted No growth Radiology NAME: RICHARDYESICA GAMEZ Aly MED REC#: [id number] PT STATUS: REG ER : 1960 PHYSICIAN: CAROL DAVISON DO ADMIT DATE: 09/21/22/ER Signed Date of Exam:09/21/22 CHEST 1 VIEW, AP/PA ONLY INDICATION: Shortness of breath Portable chest 9:27 PM There is some increased density in the right medial lung base that could be developing infiltrate. There is no effusion or pneumothorax. Heart size is normal. IMPRESSION: Suspected developing infiltrate right medial lung base. Dictated by: Dictated on workstation # [id number] Dict: 09/21/222139 Trans: 09/21/222151 [facility] [id number] Interpreted by: TREY SHELTON MD Electronically signed by: TREY SHELTON MD 09/21/222151 NAME: RICHARDYESICA GAMEZ Aly MED REC#: [id number] PT STATUS: ADM IN : 1960 PHYSICIAN: CAROL DAVISON DO ADMIT DATE: 09/22/22/ICU Draft Date of Exam:09/21/22 CT ANGIO CHEST W (R/O PE) INDICATION: 62-year-old female with shortness of breath, hypoxia, assess for pulmonary embolism. COMPARISONS: None TECHNIQUE: Helical axial tomographic images of the chest are obtained at 3 mm intervals. Multiplanar reconstructions are provided for interpretation including MIP images. FINDINGS: There are few shotty benign-appearing axillary nodes but no evidence of axillary adenopathy. There is also few small mediastinal or hilar nodes but no significant hilar or mediastinal adenopathy. Cardiac contour is normal. Thoracic aortic contour is also normal with no evidence of aneurysm or dissection. Pulmonary outflow tract as well as the right and left pulmonary arteries, their segmental branches are patent. The subsegmental branches of right lower lobe pulmonary artery, however, does show nonocclusive thrombus consistent with a pulmonary embolism. Lungs show coarse interstitial opacities. There is bilateral lower lobe consolidations, right greater than left. There is no effusion or pneumothorax. Limited assessment of the abdomen shows no overall gross abnormalities. IMPRESSION: 1. CT angiographic findings are consistent with pulmonary embolism with nonocclusive thrombus in subsegmental branches of the right lower lobe pulmonary artery. 2. Bilateral lower lobe consolidation with few scattered 5 lobe interstitial infiltrates probably atelectatic in nature. 3. There is no evidence of aortic aneurysm or dissection. 4. Few shotty benign-appearing axillary, hilar or mediastinal nodes are seen but no significant adenopathy. Additional nonemergent findings as described above. Agree with José Luis report. Dictated on workstation # [id number] Dict: 09/22/22 0505 Trans: 09/22/22 0626 RACHEL [id number] Interpreted by: DILIP GIRON MD Electronically signed by: ECG Impression ECG Initial ECG Rhythm: Normal Sinus A/P-Cardiology Assessment/Admission Diagnosis Respiratory distress with hypoxia - multi-factorial Pneumonia with sepsis - management per medical/eICU services ?UTI - management per medical services Pulmoary embolism - CTA of the chest on 09-21-22: CT angiographic findings are consistent with pulmonary embolism with nonocclusive thrombus in subsegmental branches of the right lower lobe pulmonary artery Minimal troponin elevation - likely Type 2 ND secondary to hypoxia and sepsis - Reports h/o cardiac cath in [place] in 2021 d/t elevated calcium score (550), reports it only showed mild plaque (35%) New onset bilat LE swelling - L>R HTN - multi-drug regimen (Norvasc, Valsartan, HCTA) HLD - Pravastatin at home DM 2 Probable COPD - quit smoking at age 48 Recent abdominal pain with poor intake - management per medical services H/O shanti Reed Discussion and Recomendations Respiratory distress with hypoxia - multi-factorial Pneumonia with sepsis - management per medical/eICU services PE - continue anti-coagulation - Venous doppler pending Probable COPD Echocardiogram today HTN - continue home medications except hold HCTZ for now Minimal troponin elevation - likely Type 2 ND secondary to hypoxia and sepsis ?UTI - management per medical services Abd pain with associated diarrhea - management per medical services DM 2 - management per medical services Monitor lab closely Replace electrolytes as indicated JORGE GOMEZ Sep 22, 2022 08:46
[2022-09-22] MEDS: ENOXAPARIN 100 MG/1 ML (LOVENOX) SYR SC SCH ×2 (08:47→21:05)
[2022-09-22] MEDS: PANTOPRAZOLE 40 MG (PROTONIX) VIAL IV SCH (08:48)
--- NOTE | 2022-09-22 09:33 | Diagnostic Imaging Report ---
INDICATION: Respiratory failure. Frontal chest obtained at 9:02 a.m. compared with yesterday. FINDINGS: There is cardiomegaly and central vascular congestion. There is no consolidation or pneumothorax or pleural fluid. IMPRESSION: Cardiomegaly and central vascular congestion with no focal infiltrate or pneumothorax or pleural fluid. Increased aeration of the right medial base compared to yesterday. Dictated by: Dictated on workstation # [id number]
--- NOTE | 2022-09-22 10:06 | Consultation-Cardiology ---
HPI-Cardiology Cardiology Consultation: Date of Consultation 09/22/22 Time Seen by a Provider: 09:10 Date of Admission Attending Physician Jenise Miller Aprn Admitting Physician Admitting Physician: Janelle Reynoso DO Attending Physician: Janelle Reynoso DO Consulting Physician STAN ANTONY MD, MA, FACP, FACC, FSCAI, CCDS HPI: Chief Complaint: Resp failure PE Pneumonia Ms. Jimenes is a 62 yr old female admitted to ICU 11 from the ED. She reports last week (Monday) she developed severe abd pain with assoc nausea and poor appetite. She reports the next day she went to [place] to visit her daughter for 5 days. She reports the abd pain and poor appetite persisted. She states she got up Monday morning to go to work and noted her legs to be swollen, L>R. She states she notified her PCP and was sent for a venous doppler. She reports she does note she had some SOB at that time. She states she saw her PCP and at that time her sats were in the 50's per pulse ox. She was advised ED, but did not want to go as she felt the reading was incorrect. She reports she continued to feel generally unwell and SOB. She reports she did have chills, but no fever. She states yesterday morning her daughter had called her at home, but she was groggy and disoriented with increasing SOB. Her daughter advised her to come to the ED. She called a friend who brought her to the ED. She reports her SOB is better this morning. She reports she does have a ESPITIA this morning. No c/o CP, palpitations, syncope or near syncope. Review of Systems-Cardiology Review of Systems Constitutional: As described under HPI Eyes: No vision change Ears/Nose/Throat: No epistaxis, No recent hearing loss Respiratory: As described under HPI Cardiovascular: As described under HPI Gastrointestinal: As described under HPI Genitourinary: No dysuria, No hematuria Musculoskeletal: no symptoms reported Skin: No rash on exposed areas, No ulcerations on exposed areas Psychiatric/Neurological: No anxiety, No depression, No seizure, No focal weakness, No syncope Hematologic: No bleeding abnormalities MYB-Liyjfv-Cvcklo Hx Patient Social History Smoking Status: Former Smoker Alcohol Use?: No Pt feels they are or have been: No Tobacco type used: Cigarettes Past Medical History PMH As described under Assessment. Family Medical History Family Medical History: No reported family h/o CAD Allergies and Home Medications Allergies Coded Allergies: Sulfa (Sulfonamide Antibiotics) (Verified Allergy, Unknown, 09/21/22) lisinopril (Verified Allergy, Unknown, 09/21/22) metronidazole (Verified Allergy, Unknown, 09/21/22) Patient Home Medication List Home Medication List Reviewed: Yes Physical Exam-Cardiology Physical Exam Vital Signs/I&O 09/21/22 09/22/22 09/22/22 09/22/22 22:15 00:26 00:55 01:00 Pulse 112 100 103 98 Resp 23 19 21 20 B/P (MAP) 135/85 146/92 (110) Pulse Ox 94 95 98 96 O2 Delivery OxyMask NIV Bilevel O2 Flow Rate 100.00 15.00 70.00 80.00 09/22/22 09/22/22 09/22/22 09/22/22 01:15 01:26 01:30 01:45 Pulse 98 86 87 87 Resp 20 20 B/P (MAP) 126/80 (95) 123/78 (93) 103/64 (77) Pulse Ox 96 92 93 O2 Delivery NIV Bilevel NIV Bilevel NIV Bilevel O2 Flow Rate 80.00 80.00 80.00 09/22/22 09/22/22 09/22/22 09/22/22 02:15 02:45 03:26 04:00 Pulse 111 109 108 Resp 24 B/P (MAP) 141/82 (101) 147/81 (103) Pulse Ox 96 97 98 96 O2 Delivery NIV Bilevel NIV Bilevel NIV Bilevel O2 Flow Rate 80.00 80.00 80.00 FiO2 70 09/22/22 09/22/22 09/22/22 09/22/22 05:00 06:00 07:00 07:00 Pulse 90 90 87 85 Resp 19 B/P (MAP) 118/68 (85) Pulse Ox 98 95 94 O2 Delivery NIV Bilevel NIV Bilevel NIV Bilevel O2 Flow Rate 80.00 80.00 80.00 09/22/22 09/22/22 09/22/22 09/22/22 07:08 07:54 08:00 08:28 Temp 36.0 Pulse 95 80 Resp 20 Pulse Ox 97 96 93 O2 Delivery NIV Bilevel High Flow N/C O2 Flow Rate 70.00 80.00 15.00 09/22/22 09:00 Pulse 85 Pulse Ox 92 O2 Delivery High Flow N/C O2 Flow Rate 15.00 09/22/22 00:00 Intake Total 305 ml Balance 305 ml Capillary Refill : Less Than 3 Seconds Constitutional: AAO x 3, well-developed, well-nourished HEENT: PERRL, hearing is well preserved, oral hygience is good Neck: No carotid bruit; carotid pulses are 2 + bilaterally Respiratory: No accessory muscle use, No respiratory distress; chest expansion is symmetric, chest is bilaterally symmetric, other (coarse breath sounds lower lobes bilat) Cardiovascular: regular rate-rhythm; No JVD; S1 and S2 Gastrointestinal: soft, round; No guarding; audible bowel sounds Extremities: other (mild to mod bilat LE swelling) Neurologic/Psychiatric: other (moves all extremities) Skin: normal color, warm/dry; No rash on exposed areas, No ulcerations on exposed areas Data Review Labs Laboratory Tests 09/21/22 21:28: Influenza Type A (RT-PCR) Not Detected, Influenza Type B (RT-PCR) Not Detected, SARS-CoV-2 RNA (RT-PCR) Not Detected 09/21/22 21:30: White Blood Count 13.7H, Red Blood Count 5.16H, Hemoglobin 11.0L, Hematocrit 41, Mean Corpuscular Volume 80, Mean Corpuscular Hemoglobin 21L, Mean Corpuscular Hemoglobin Concent 27L, Red Cell Distribution Width 19.9H, Platelet Count 240, Mean Platelet Volume 12.1, Immature Granulocyte % (Auto) 1, Neutrophils (%) (Auto) 84H, Lymphocytes (%) (Auto) 8L, Monocytes (%) (Auto) 6, Eosinophils (%) (Auto) 0, Basophils (%) (Auto) 1, Neutrophils # (Auto) 11.5H, Lymphocytes # (Auto) 1.1, Monocytes # (Auto) 0.8, Eosinophils # (Auto) 0.0, Basophils # (Auto) 0.1, Immature Granulocyte # (Auto) 0.1, Neutrophils % (Manual) 80, Lymphocytes % (Manual) 5, Monocytes % (Manual) 7, Band Neutrophils 6, Nucleated Red Blood Cells 4, Reactive Lymphocytes 2, Percent Immature Platelet Fraction 9.9H, Polychromasia MODERATE, Hypochromasia SLIGHT, Anisocytosis MODERATE, Prothrombin Time 13.6, INR Comment 1.0, Activated Partial Thromboplast Time 29, D-Dimer 0.79H, Sodium Level 137, Potassium Level 4.4, Chloride Level 99, Carbon Dioxide Level 27, Anion Gap 11, Blood Urea Nitrogen 14, Creatinine 0.85, Estimat Glomerular Filtration Rate 76, BUN/Creatinine Ratio 16, Glucose Level 166H, Lactic Acid Level 2.30*H, Calcium Level 10.6H, Corrected Calcium 10.7H, Magnesium Level 2.1, Total Bilirubin 0.8, Aspartate Amino Transf (AST/SGOT) 33, Alanine Aminotransferase (ALT/SGPT) 22, Alkaline Phosphatase 89, Total Creatine Kinase 28L, Creatine Kinase MB 0.7, Myoglobin 25.8, Troponin I 0.072H, B-Type Natriuretic Peptide 294.2H, Total Protein 7.4, Albumin 3.9 09/21/22 21:46: Blood Gas Puncture Site RRAD, Blood Gas Patient Temperature 37.6, Arterial Blood pH 7.36L, Arterial Blood Partial Pressure CO2 59H, Arterial Blood Partial Pressure O2 71L, Arterial Blood HCO3 32H, Arterial Blood Total CO2 34.2H, Arterial Blood Oxygen Saturation 94, Arterial Blood Base Excess 7.2H, [place]on Test YES-POS, Blood Gas Ventilator Setting NO, Blood Gas Inspired Oxygen 10 09/21/22 23:09: Urine Color YELLOW, Urine Clarity SL CLOUDY, Urine pH 6.0, Urine Specific [place] 1.025H, Urine Protein 1+H, Urine Glucose (UA) NEGATIVE, Urine Ketones NEGATIVE, Urine Nitrite NEGATIVE, Urine Bilirubin NEGATIVE, Urine Urobilinogen 1.0, Urine Leukocyte Esterase TRACEH, Urine RBC (Auto) NEGATIVE, Urine RBC RARE, Urine WBC 2-5, Urine Squamous Epithelial Cells 2-5, Urine Crystals NONE, Urine Bacteria MODERATEH, Urine Casts PRESENT, Urine Hyaline Casts 0-2H, Urine Mucus MODERATEH, Urine Culture Indicated CULTURE PENDING 09/21/22 23:30: Lactic Acid Level 1.87 09/22/22 05:08: Lactic Acid Level 1.03, White Blood Count 15.9H, Red Blood Count 5.03, Hemogl obin 10.8L, Hematocrit 41, Mean Corpuscular Volume 81, Mean Corpuscular Hemoglo bin 22L, Mean Corpuscular Hemoglobin Concent 26L, Red Cell Distribution Width 19.6H, Platelet Count 209, Mean Platelet Volume 12.0, Immature Granulocyte % (Auto) 1, Neutrophils (%) (Auto) 94H, Lymphocytes (%) (Auto) 4L, Monocytes (%) (Auto) 1, Eosinophils (%) (Auto) 0, Basophils (%) (Auto) 0, Neutrophils # (Auto) 14.9H, Lymphocytes # (Auto) 0.7L, Monocytes # (Auto) 0.2, Eosinophils # (Auto) 0.0, Basophils # (Auto) 0.1, Immature Granulocyte # (Auto) 0.2H, Percent Immature Platelet Fraction 11.0H, Sodium Level 139, Potassium Level 4.6, Chloride Level 102, Carbon Dioxide Level 28, Anion Gap 9, Blood Urea Nitrogen 15, Creatinine 0.81, Estimat Glomerular Filtration Rate 81, BUN/Creatinine Ratio 19, Glucose Level 222H, Calcium Level 10.2H, Corrected Calcium 10.4H, Phosphorus Level 3.9, Magnesium Level 2.2, Total Bilirubin 0.4, Aspartate Amino Transf ( T/SGOT) 25, Alanine Aminotransferase (ALT/SGPT) 26, Alkaline Phosphatase 95, Troponin I 0.057H, B-Type Natriuretic Peptide 561.6H, Total Protein 7.1, Albumin 3.8 Laboratory Tests 09/21/22 21:30 09/22/22 05:08 A/P-Cardiology Assessment/Admission Diagnosis Respiratory distress with hypoxia - multi-factorial Pneumonia with sepsis - management per medical/eICU services ?UTI - management per medical services Pulmoary embolism - CTA of the chest on 09-21-22: CT angiographic findings are consistent with pulmonary embolism with nonocclusive thrombus in subsegmental branches of the right lower lobe pulmonary artery Minimal troponin elevation - likely Type 2 [place] secondary to hypoxia and sepsis - Reports h/o cardiac cath in [place] in 2021 d/t elevated calcium score (550), reports it only showed mild plaque (35%) New onset bilat LE swelling - L>R HTN - multi-drug regimen (Norvasc, Valsartan, HCTA) HLD - Pravastatin at home DM 2 Probable COPD - quit smoking at age 48 Recent abdominal pain with poor intake - management per medical services H/o appshanti guo Discussion and Recomendations Respiratory distress with hypoxia - multi-factorial Pneumonia with sepsis - management per medical/eICU services PE - continue anti-coagulation - Venous doppler pending Probable COPD Echocardiogram today HTN - continue home medications except hold HCTZ for now Minimal troponin elevation - likely Type 2 MO secondary to hypoxia and sepsis ?UTI - management per medical services Abd pain with associated diarrhea - management per medical services DM 2 - management per medical services Monitor lab closely Replace electrolytes as indicated STAN ANTONY MD FACP FAC CCDS Sep 22, 2022 10:06
--- NOTE | 2022-09-22 10:12 | History & Physical ---
AMY DEL TORO 09/22/22 1012: History of Present Illness History of Present Illness Reason for visit/HPI Hilaria Jimenes is a 62yo F with past medical hx of HTN, HLD, and T2DM who presented to the ED on 09/21 for shortness of breath and O2 sats in the 50s at home. She recently returned from a trip to [place] to see family and has been experiencing abdominal pain for the last week. This pain has persisted but has not been severe enough for her to see a medical provider. She underwent a venous doppler study of the LLE yesterday after going to her primary care provider with complaints of LLE swelling. According to the patient the study was negative for DVT. She began feeling short of breath before her appointment but this sensation worsened throughout the day leading her to come to the ED. She was hypoxic and found to have R sided PNA and R sided PE. She was placed on bipap and received duonebs.. This morning she reports breathing easier. She has no complaints of co ugh, chest pain, or fever/chills. Denies any recent sick contacts. She reports she has no history of lung disease but her primary care provider has mentioned COPD to her due to her smoking history and intermittent shortness of breath. She has no hx of DVT in the past. Date of Admission Sep 22, 2022 at 01:04 Time Seen by a Provider: 08:00 I consulted on this patient on 09/22/22 10:05 Attending Physician Jenise Miller Aprn Admitting Physician Admitting Physician: Janelle Deleon DO Attending Physician: Janelle Deleon DO Consult Allergies and Home Medications Allergies Coded Allergies: Sulfa (Sulfonamide Antibiotics) (Verified Allergy, Unknown, 09/21/22) lisinopril (Verified Allergy, Unknown, 09/21/22) metronidazole (Verified Allergy, Unknown, 09/21/22) Patient Home Medication List Home Medication List Reviewed: Yes Albuterol Sulfate (Ventolin Hfa) 90 Mcg Hfa.aer.ad, 2 PUFF INH Q4H PRN for SHORT NESS OF BREATH, (Reported) Entered as Reported by: LUKE FLOREZ on 09/22/22 1230 Last Action: Reviewed Amlodipine Besylate (Amlodipine Besylate) 5 Mg Tablet, 5 MG PO DAILY, (Reported) Entered as Reported by: LUKE FLOREZ on 09/22/221229 Last Action: Reviewed Aspirin (Aspirin) 81 Mg Tab.chew, 81 MG PO DAILY, (Reported) Entered as Reported by: LUKE FLOREZ on 09/22/221229 Last Action: Reviewed Cholecalciferol (Vitamin D3) (Vitamin D3) 125 Mcg (5000 Unit) Tablet, 125 MCG PO DAILY, (Reported) Entered as Reported by: LUKE FLOREZ on 09/22/221229 Last Action: Reviewed Ferrous Sulfate (Ferosul) 325 Mg (65 Mg Iron) Tablet, 325 MG PO Q48H, (Reported) Entered as Reported by: LUKE FLOREZ on 09/22/221229 Last Action: Reviewed Fexofenadine HCl (Fexofenadine HCl) 180 Mg Tablet, 180 MG PO DAILY, (Reported) Entered as Reported by: LUKE FLOREZ on 09/22/221229 Last Action: Reviewed Fluticasone Propionate (Fluticasone Propionate) 50 Mcg/Actuation [place].susp, 1 SPRAY NSEACH BID PRN for CONGESTION, (Reported) Entered as Reported by: LUKE FLOREZ on 09/22/221229 Last Action: Reviewed Glimepiride (Glimepiride) 2 Mg Tablet, 2 MG PO DAILY, (Reported) Entered as Reported by: LUKE FLOREZ on 09/22/221229 Last Action: Reviewed Hydrochlorothiazide (Hydrochlorothiazide) 25 Mg Tablet, 25 MG PO DAILY, (Reported) Entered as Reported by: LUKE FLOREZ on 09/22/221229 Last Action: Reviewed Ibuprofen (Ibuprofen) 200 Mg Capsule, 800 MG PO Q8H PRN for PAIN-MILD (1-4), (Reported) Entered as Reported by: LUKE FLOREZ on 09/22/221229 Last Action: Reviewed L.acidoph & Paracasei,B.lactis (Probiotic) 10 Billion Cell Capsule, 1 EACH PO DAILY, (Reported) Entered as Reported by: LUKE FLOREZ on 09/22/221229 Last Action: Reviewed Magnesium Oxide (Magnesium) 400 Mg Magnesium Tablet, 400 MG PO DAILY, (Reported) Entered as Reported by: LUKE FLOREZ on 09/22/221229 Last Action: Reviewed Ondansetron HCl (Ondansetron HCl) 4 Mg Tablet, 4 MG PO Q6H PRN for NAUSEA/VOMITING-1ST LINE, (Reported) Entered as Reported by: LUKE FLOREZ on 09/22/221229 Last Action: Reviewed Pravastatin Sodium (Pravastatin Sodium) 40 Mg Tablet, 40 MG PO DAILY, (Reported) Entered as Reported by: LUKE FLOREZ on 09/22/221229 Last Action: Reviewed Rimegepant Sulfate (Nurtec Odt) 75 Mg Tab.rapdis, 75 MG PO PRN Prescribed by: TOMMY HERNANDEZ on 09/22/221707 Last Action: Converted Ubidecarenone (Coq-10) 100 Mg Capsule, 100 MG PO DAILY, (Reported) Entered as Reported by: LUKE FLOREZ on 09/22/221229 Last Action: Reviewed Valacyclovir HCl (Valacyclovir) 500 Mg Tablet, 500 MG PO DAILY, (Reported) Entered as Reported by: LUKE FLOREZ on 09/22/221229 Last Action: Reviewed Valsartan (Valsartan) 320 Mg Tablet, 320 MG PO DAILY, (Reported) Entered as Reported by: LUKE FLOREZ on 09/22/221229 Last Action: Reviewed Vitamin B Complex/Folic Acid (Super B Maxi Complex Caplet) 0.4 Mg Tablet, 0.4 MG PO DAILY, (Reported) Entered as Reported by: LUKE FLOREZ on 09/22/221229 Last Action: Reviewed [Berberine W/Cinnamon] , 2 EA PO DAILY, (Reported) Entered as Reported by: LUKE FLOREZ on 09/22/221229 Last Action: Reviewed Past Fhqfldo-Cziqae-Mhjdpg Hx Patient Social History Tobacco Use?: Yes Tobacco type used: Cigarettes Smoking Status: Former Smoker (quit 15 years ago) Use of E-Cig and/or Vaping dev: No Substance use?: No Alcohol Use?: No Pt feels they are or have been: No Immunizations Up To Date First/Initial COVID19 Vaccinat: X1 Tetanus Booster (TDap): Less Than 5 Years Hepatitis A: Yes Hepatitis B: Yes Current Status status: No status: No Advance Directives: No Communicates: Verbally Primary Language: Ghanaian Preferred Spoken Language: Ghanaian Is interpretation needed?: No Sensory deficits: Vision impairment Implanted or Applied Medical D: BiPAP Past Medical History Surgeries: Appendectomy, Gallbladder, Hysterectomy, Oophorectomy, Orthopedic (R knee scope) High Cholesterol, Hypertension 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, Menopausal Diabetes, Non-Insulin dep Blood Disorders: No Family Medical History Other Conditions/Hx (no family hx of DVT or PE) Review of Systems Constitutional: No chills, No diaphoresis, No fever EENTM: No hearing loss, No vision loss Respiratory: No cough; short of breath; No wheezing Cardiovascular: No chest pain, No palpitations Gastrointestinal: No nausea, No vomiting; other (dull pain below umbilicus) Psychiatric/Neurological: Denies Headache, Denies Pre-Existing Deficit Physical Exam Vital Signs Vital Signs - First Documented 09/22/22 03:26 FiO2 70 Capillary Refill : Less Than 3 Seconds Height, Weight, BMI Height: '" Weight: lbs. oz. kg; 35.62 BMI Method: General Appearance: No Apparent Distress, WD/WN, Other (bipap in place) HEENT: PERRL/EOMI, Moist Mucous Membranes Neck: Non Tender, Supple Respiratory: Chest Non Tender, No Accessory Muscle Use, Decreased Breath Sounds (R base); No Wheezing Cardiovascular: Regular Rate, Rhythm, Normal Peripheral Pulses Gastrointestinal: Soft, Tenderness (below umbilicus) Rectal: Deferred Extremity: Normal Capillary Refill, No Calf Tenderness, Swelling (LLE slightly worse than R) Neurologic/Psychiatric: Alert, Oriented x3, Normal Mood/Affect Skin: Normal Color, Warm/Dry Assessment/Plan Assessment and Plan PNA of R lower lobe Acute hypoxic and hypercapnic respiratory failure Sepsis Leukocytosis Lactic acidosis Cotinue oxygen supplementation with bipap. Wean to high flow nasal cannula as tolerated Continue duonebs and incentive spirometer Received dexamethasone in ED Ceftriaxone 1000mg and Azithromycin 500mg WBC up to 15.9 from 13.7 Afebrile Lactic acid down to 1.03 from 2.3 Blood pressure stable as of now with NaCl 1 L at 150mls/hr, pressor support if necessary ABG showed evidence of respiratory acidosis with compensation Negative viral panel for flu A, B and covid Pulmonary embolism D dimer elevated in ED at 0.79 CTA showed evidence of PE in R subsegmental branches of the right lower lobe pulmonary artery Lovenox 90 mg BID Elevated troponin Elevated BNP minimal troponin elevation Cardiology consulted Likely type 2 IL secondary to hypoxia Probable UTI UA was + for bacteria and leukocyte esterase continue IV fluids and abx as above Recent COVID infection ASIA has used CPAP in the past, currently does not use DVT ppx- therapeutic dose of lovenox Diet- regular CODE status- full Admission Diagnosis Admission Status: Inpatient Order (span 2 midnights) JANELLE DELEON DO 09/22/222116: Allergies and Home Medications Allergies Coded Allergies: Sulfa (Sulfonamide Antibiotics) (Verified Allergy, Unknown, 09/21/22) lisinopril (Verified Allergy, Unknown, 09/21/22) metronidazole (Verified Allergy, Unknown, 09/21/22) Patient Home Medication List Home Medication List Reviewed: Yes Albuterol Sulfate (Ventolin Hfa) 90 Mcg Hfa.aer.ad, 2 PUFF INH Q4H PRN for SHORTNESS OF BREATH, (Reported) Entered as Reported by: LUKE FLOREZ on 09/22/221229 Last Action: Reviewed Amlodipine Besylate (Amlodipine Besylate) 5 Mg Tablet, 5 MG PO DAILY, (Reported) Entered as Reported by: LUKE FLOREZ on 09/22/221229 Last Action: Reviewed Aspirin (Aspirin) 81 Mg Tab.chew, 81 MG PO DAILY, (Reported) Entered as Reported by: LUKE FLOREZ on 09/22/221229 Last Action: Reviewed Cholecalciferol (Vitamin D3) (Vitamin D3) 125 Mcg (5000 Unit) Tablet, 125 MCG PO DAILY, (Reported) Entered as Reported by: LUKE FLOREZ on 09/22/221229 Last Action: Reviewed Ferrous Sulfate (Ferosul) 325 Mg (65 Mg Iron) Tablet, 325 MG PO Q48H, (Reported) Entered as Reported by: LUKE FLOREZ on 09/22/221229 Last Action: Reviewed Fexofenadine HCl (Fexofenadine HCl) 180 Mg Tablet, 180 MG PO DAILY, (Reported) Entered as Reported by: LUKE FLOREZ on 09/22/221229 Last Action: Reviewed Fluticasone Propionate (Fluticasone Propionate) 50 Mcg/Actuation [place].susp, 1 SPRAY NSEACH BID PRN for CONGESTION, (Reported) Entered as Reported by: LUKE FLOREZ on 09/22/221229 Last Action: Reviewed Glimepiride (Glimepiride) 2 Mg Tablet, 2 MG PO DAILY, (Reported) Entered as Reported by: LUKE FLOREZ on 09/22/221229 Last Action: Reviewed Hydrochlorothiazide (Hydrochlorothiazide) 25 Mg Tablet, 25 MG PO DAILY, (Report ed) Entered as Reported by: LUKE FLOREZ on 09/22/221229 Last Action: Reviewed Ibuprofen (Ibuprofen) 200 Mg Capsule, 800 MG PO Q8H PRN for PAIN-MILD (1-4), (Reported) Entered as Reported by: LUKE FLOREZ on 09/22/221229 Last Action: Reviewed L.acidoph & Paracasei,B.lactis (Probiotic) 10 Billion Cell Capsule, 1 EACH PO DAILY, (Reported) Entered as Reported by: LUKE FLOREZ on 09/22/221229 Last Action: Reviewed Magnesium Oxide (Magnesium) 400 Mg Magnesium Tablet, 400 MG PO DAILY, (Reported) Entered as Reported by: LUKE FLOREZ on 09/22/221229 Last Action: Reviewed Ondansetron HCl (Ondansetron HCl) 4 Mg Tablet, 4 MG PO Q6H PRN for NAUSEA/VOMITING-1ST LINE, (Reported) Entered as Reported by: LUKE FLOREZ on 09/22/221229 Last Action: Reviewed Pravastatin Sodium (Pravastatin Sodium) 40 Mg Tablet, 40 MG PO DAILY, (Reported) Entered as Reported by: LUKE FLOREZ on 09/22/221229 Last Action: Reviewed Rimegepant Sulfate (Nurtec Odt) 75 Mg Tab.rapdis, 75 MG PO PRN Prescribed by: TOMMY HERNANDEZ on 09/22/22 1708 Last Action: Converted Ubidecarenone (Coq-10) 100 Mg Capsule, 100 MG PO DAILY, (Reported) Entered as Reported by: LUKE FLOREZ on 09/22/221229 Last Action: Reviewed Valacyclovir HCl (Valacyclovir) 500 Mg Tablet, 500 MG PO DAILY, (Reported) Entered as Reported by: LUKE FLOREZ on 09/22/221229 Last Action: Reviewed Valsartan (Valsartan) 320 Mg Tablet, 320 MG PO DAILY, (Reported) Entered as Reported by: LUKE FLOREZ on 09/22/221229 Last Action: Reviewed Vitamin B Complex/Folic Acid (Super B Maxi Complex Caplet) 0.4 Mg Tablet, 0.4 MG PO DAILY, (Reported) Entered as Reported by: LUKE FLOREZ on 09/22/22 123 Last Action: Reviewed [Berberine W/Cinnamon] , 2 EA PO DAILY, (Reported) Entered as Reported by: LUKE FLOREZ on 09/22/221229 Last Action: Reviewed Past Zbqmsyh-Iduofp-Jrgged Hx Patient Social History Marrital Status: single Employed/Student: employed Smoking Status: Former Smoker (quit 15 years ago) Past Medical History Sleep Apnea Currently Using CPAP: No Currently Using BIPAP: No Review of Systems Constitutional: see HPI Respiratory: dyspnea on exertion, short of breath Physical Exam General Appearance: No Apparent Distress, WD/WN, Chronically ill Eyes: Bilateral Eye Normal Inspection, Bilateral Eye PERRL, Bilateral Eye EOMI HEENT: PERRL/EOMI, Normal ENT Inspection, Pharynx Normal Neck: Full Range of Motion, Normal Inspection, Non Tender, Supple, Carotid Bruit Respiratory: Chest Non Tender, Lungs Clear, No Accessory Muscle Use, No Respiratory Distress, Decreased Breath Sounds (R base), Wheezing Cardiovascular: Regular Rate, Rhythm, No Edema, No Gallop, No JVD, No Murmur, Normal Peripheral Pulses Gastrointestinal: Normal Bowel Sounds, No Organomegaly, No Pulsatile Mass, Non Tender, Soft Back: Normal Inspection, No CVA Tenderness, No Vertebral Tenderness Extremity: Normal Capillary Refill, Normal Inspection, Normal Range of Motion, Non Tender, No Calf Tenderness, No Pedal Edema Neurologic/Psychiatric: Alert, Oriented x3, No Motor/Sensory Deficits, Normal Mood/Affect Skin: Normal Color, Warm/Dry Lymphatic: No Adenopathy Assessment/Plan Assessment and Plan Assessment: BiPAP Cardiology Gleason Operator ICU appreciated Anticoagulation Admission Diagnosis Admission Status: Inpatient Order (span 2 midnights) Reason for Inpatient Admission: Acute respiratory failure with PE and pneumonia exacerbation of COPD with UTI and elevated troponin Supervisory-Addendum Brief Verification & Attestation Participated in pt care: history, MDM, physical Personally performed: exam, history, MDM, supervision of care Care discussed with: Medical Student Procedures: n/a Results interpretation: Verified all documentation Verification and Attestation of Medical Student E/M Service A medical student performed and documented this service in my presence. I reviewed and verified all information documented by the medical student and made modifications to such information, when appropriate. I personally performed the physical exam and medical decision making. Janelle S Deleon, Sep 22, 2022,21:18 AMY DEL TORO Sep 22, 2022 10:12 JANELLE DELEON DO Sep 22, 2022 21:17
--- NOTE | 2022-09-22 10:26 | Tele-ICU Progress Note ---
Subjective Date Seen by a Provider: Sep 22, 2022 Time Seen by a Provider: 10:26 Subjective/Events-last exam (Tele-ICU Physician , Progress Note ) Service provided via interactive audio and video telecommunications E-CARE system to a patient admitted to ICU bed in [facility]. Patient is seen today due to persistent need of ICU care Available chart/ vitals / labs / Images reviewed Video assessment done using teleICU camera, rest of exam as per RN Discussed with RN Events overnight : Afebrile hemodynamically stable Respiratory - 3L I/O = Drips: 0216 Pressors- no Hospital course: (09/22) 62 Y/O Female with Ipqxvouls-Edvawhm-EF. Placed on Bipap. A/P Respiratory distress with hypoxia- - placed on BIPAP briefly ( abg with mild chronic Co2 retention ) - off now - multi-factorial: - PE by CT RLL subsegmental and small PNA Pneumonia ( small ) - cont abx possible UTI - on abx for PNA - already Pulmoary embolism - CTA 09-21-22 - subsegmental RLL ( no dvt) - on lovenox , ? changr to NOAC - when cards finish eval/w/up Troponin elevation - seen by cards : - likely Type 2 NM secondary to hypoxia and sepsis - Reports h/o cardiac cath in [place] in 2021 d/t elevated calcium score (550), reports it only showed mild plaque (35%) Bilat LE edema- L>R - Negative venous Doppler of the left lower extremity. DM 2 - ISS Probable COPD - quit smoking at age 48, no severe emphysema on CT - as per RN - patien tis being evaluated as outpt - cont nebs - receiced staroids 09/22 on ER IV - no wheexing , no more steroids given Lines : , (Central Line Necessity Reviewed) Dahl: OG: Nutrition: Analgesia: Anxiety/ delirium VTE Prophylaxis: quyen full dose Stress Ulcer Prophylaxis: na Plans in collaboration with bedside consultants and IM MDs. Discussed with RN to reach out if any questions or concerns Case and care daily discussed on multidisciplinary rounds ( RN, PharmD, Wind Plant Manager , Respiratory Therapy, chemical plant worker ) A total of 20 minutes of critical care time was devoted to this patient today, required to treat and/or prevent further deterioration of critical care condition ( as above ) . I am remotely monitoring this patient from another state. I am unable to do the bedside exam, and history/physical and pertinent information is taken from other notes in the computer and bedside staff. Sepsis Event Evaluation Height, Weight, BMI Height: '" Weight: lbs. oz. kg; 35.62 BMI Method: Focused Exam Lactate Level 09/21/22 21:30: Lactic Acid Level 2.30*H 09/21/22 23:30: Lactic Acid Level 1.87 09/22/22 05:08: Lactic Acid Level 1.03 Time of Focused Exam: 23:00 Exam Exam Patient acknowledged, consented, and participated in this virtual visit which was conducted using real time audio/video Vital Signs Date Time Temp Pulse Resp B/P (MAP) Pulse Ox O2 Delivery O2 Flow Rate FiO2 09/22/22 09:00 85 92 High Flow N/C 15.00 09/22/22 08:28 93 High Flow N/C 15.00 09/22/22 08:00 80 96 NIV Bilevel 80.00 09/22/22 07:54 36.0 09/22/22 07:08 95 20 97 70.00 09/22/22 07:00 85 09/22/22 07:00 87 118/68 (85) 94 NIV Bilevel 80.00 09/22/22 06:00 90 95 NIV Bilevel 80.00 09/22/22 05:00 90 19 98 NIV Bilevel 80.00 09/22/22 04:00 108 24 96 NIV Bilevel 80.00 09/22/22 03:26 98 70 09/22/22 02:45 109 147/81 (103) 97 NIV Bilevel 80.00 09/22/22 02:15 111 141/82 (101) 96 NIV Bilevel 80.00 09/22/22 01:45 87 103/64 (77) 93 NIV Bilevel 80.00 09/22/22 01:30 87 20 123/78 (93) 92 NIV Bilevel 80.00 09/22/22 01:26 86 09/22/22 01:15 98 20 126/80 (95) 96 NIV Bilevel 80.00 09/22/22 01:00 98 20 146/92 (110) 96 NIV Bilevel 80.00 09/22/22 00:55 103 21 98 70.00 09/22/22 00:26 100 19 135/85 95 OxyMask 15.00 09/21/22 22:15 112 23 94 100.00 09/21/22 21:55 94 8.00 09/21/22 21:23 94 Simple Mask 15.00 09/21/22 21:23 37.6 118 22 158/101 (120) 94 Simple Mask 15.00 I & O 09/22/22 07:00 Intake Total 1305 ml Output Total 300 ml Balance 1005 ml Height & Weight Height: '" Weight: lbs. oz. kg; 35.62 BMI Method: General Appearance: No Apparent Distress HEENT: Normal ENT Inspection Respiratory: No Accessory Muscle Use, No Respiratory Distress, Rales (RLL) Cardiovascular: No Murmur, Normal Peripheral Pulses, Tachycardia Capillary Refill: Less Than 3 Seconds Peripheral Pulses: 1+ Dorsalis Pedis (R), 1+ Left Dors-Pedis (L) Gastrointestinal: non tender, soft Results Lab Laboratory Tests 09/21/22 21:30 09/22/22 05:08 Assessment/Plan Assessment/Plan 1 HOMER BUCIO MD Sep 22, 2022 10:26
--- NOTE | 2022-09-22 10:55 | Diagnostic Imaging Report ---
PROCEDURE: US right lower extremity venous. TECHNIQUE: Multiple real-time grayscale images were obtained over the right lower extremity in various projections. Additional spectral analysis and color Doppler duplex images were also obtained. INDICATION: Pulmonary embolus and acute respiratory failure. There is no evidence of right lower extremity DVT. Right lower extremity deep venous system shows normal compressibility with normal response to augmentation and Valsalva. No fluid collection or mass is detected. IMPRESSION: No evidence of right lower extremity DVT. Dictated by: Dictated on workstation # [id number]
[2022-09-22] MEDS ORDERED: GLIM2TAB4 PO (12:30)
[2022-09-22] MEDS ORDERED: VALS320T15 PO (12:30)
[2022-09-22] MEDS ORDERED: FERR325T24 PO (12:30)
[2022-09-22] MEDS ORDERED: HYDR25TA4 PO (12:30)
[2022-09-22] MEDS ORDERED: L.AC1CAP6 PO (12:30)
[2022-09-22] MEDS ORDERED: ASPI-999 PO (12:30)
[2022-09-22] MEDS ORDERED: VALA500T7 PO (12:30)
[2022-09-22] MEDS ORDERED: CHOL500044 PO (12:30)
[2022-09-22] MEDS ORDERED: NF-ALLE180 PO (12:30)
[2022-09-22] MEDS ORDERED: IBUP-2185 PO (12:30)
[2022-09-22] MEDS ORDERED: PRAV40TA2 PO (12:30)
[2022-09-22] MEDS ORDERED: FLUT16SP22 NSEACH (12:30)
[2022-09-22] MEDS ORDERED: ALBU18HF2 INH (12:30)
[2022-09-22] MEDS ORDERED: ONDA-105 PO (12:30)
[2022-09-22] MEDS ORDERED: CINNAMON PO (12:30)
[2022-09-22] MEDS ORDERED: UBID100C17 PO (12:30)
[2022-09-22] MEDS ORDERED: MAGN400T39 PO (12:30)
[2022-09-22] MEDS ORDERED: VITA0.4T18 PO (12:30)
[2022-09-22] MEDS ORDERED: AMLO-250 PO (12:30)
[2022-09-22] MEDS ORDERED: BERBERINE PO (12:30)
[2022-09-22] MEDS ORDERED: RIME75TA PO (17:08)
[2022-09-22] MEDS ORDERED: NURTEC 75 MG PO PRN (17:15)
[2022-09-22] MEDS ORDERED: PATIENT MAY USE OWN MEDS, ALL MC SCH (17:15)
[2022-09-22] MEDS ORDERED: AZITHROMYCIN INJECTION 500 MG in NS (IVPB) 250 ML IV SCH (21:00)
[2022-09-22] MEDS: MONTELUKAST 10 MG (SINGULAIR) TAB PO SCH (21:07)
[2022-09-22] MEDS: cefTRIAXone IV/IM 1,000 MG in NS (IVPB) 50 ML IV SCH (21:07)
[2022-09-23] MEDS: VASOPRESSIN INJECTION 20 UNIT in NS (IVPB) 100 ML IV SCH ×2 (00:33→11:04)
[2022-09-23] MEDS: RT-ALBUTEROL/IPRATROPIUM 3 ML (DUONEB) VIAL INH SCH ×4 (03:41→14:54)
[2022-09-23] MEDS: inSUlin ASPART (NovoLOG) 1 UNIT/0.01 ML (CHARGE PER UNIT) SC SCH ×4 (06:02→21:00)
[2022-09-23 06:06] LABS: BASOPHILS % (AUTO) 0 % (0-10); EOSINOPHILS % (AUTO) 0 % (0-10); HEMATOCRIT 36 % (35-52); HEMOGLOBIN 9.4 g/dL (11.5-16.0); LYMPHOCYTES # (AUTO) 0.6 10^3/uL (1.0-4.0); LYMPHOCYTES % (AUTO) 4 % (12-44); MEAN CORPUSCULAR HEMOGLOBIN 22 pg (25-34); MEAN CORPUSCULAR HGB CONC 26 g/dL (32-36); MEAN CORPUSCULAR VOLUME 83 fL (80-99); MONOCYTES # (AUTO) 0.8 10^3/uL (0.0-1.0); MONOCYTES % (AUTO) 5 % (0-12); NEUTROPHILS # (AUTO) 14.9 10^3/uL (1.8-7.8); NEUTROPHILS % (AUTO) 91 % (42-75); PLATELET COUNT 185 10^3/uL (130-400); WHITE BLOOD COUNT 16.4 10^3/uL (4.3-11.0)
[2022-09-23 06:13] LABS: ALBUMIN 3.4 GM/DL (3.2-4.5); POTASSIUM 4.8 MMOL/L (3.6-5.0)
[2022-09-23 06:14] LABS: CALCIUM 10.3 MG/DL (8.5-10.1)
[2022-09-23 06:16] LABS: TOTAL PROTEIN 6.3 GM/DL (6.4-8.2)
[2022-09-23 06:17] LABS: BILIRUBIN,TOTAL 0.2 MG/DL (0.1-1.0)
[2022-09-23 06:19] LABS: PHOSPHORUS 2.8 MG/DL (2.3-4.7)
[2022-09-23 06:20] LABS: CREATININE SERUM 0.79 MG/DL (0.60-1.30)
[2022-09-23 06:22] LABS: MAGNESIUM 2.3 MG/DL (1.6-2.4)
--- NOTE | 2022-09-23 07:37 | Tele-ICU Progress Note ---
Subjective Date Seen by a Provider: Sep 23, 2022 Subjective/Events-last exam (Tele-ICU Physician , Progress Note ) Service provided via interactive audio and video telecommunications E-CARE system to a patient admitted to ICU bed in [facility]. Patient is seen today due to persistent need of ICU care Available chart/ vitals / labs / Images reviewed Video assessment done using teleICU camera, rest of exam as per RN Discussed with RN PNA Now on 10 lpm high flow oxygen with SpO2 97?%, Remains on IV Rocephin, Azith romoycin, also on IV Decadron WBC same at 16.4, Hb stable, BMP ok Sepsis Event Evaluation Height, Weight, BMI Height: '" Weight: lbs. oz. kg; 35.62 BMI Method: Focused Exam Lactate Level 09/21/22 21:30: Lactic Acid Level 2.30*H 09/21/22 23:30: Lactic Acid Level 1.87 09/22/22 05:08: Lactic Acid Level 1.03 Time of Focused Exam: 23:00 Exam Exam Patient acknowledged, consented, and participated in this virtual visit which was conducted using real time audio/video Vital Signs Date Time Temp Pulse Resp B/P (MAP) Pulse Ox O2 Delivery O2 Flow Rate FiO2 09/23/22 07:07 97 High Flow N/C 10.00 09/23/22 06:00 82 12 125/87 (100) 94 High Flow N/C 6.00 09/23/22 05:00 75 15 121/69 (86) 96 High Flow N/C 6.00 09/23/22 04:09 96 High Flow N/C 10.00 09/23/22 04:00 79 131/83 (99) 92 High Flow N/C 6.00 09/23/22 04:00 36.1 09/23/22 03:00 100 144/75 (98) 96 High Flow N/C 6.00 09/23/22 02:00 99 150/86 (107) 97 High Flow N/C 6.00 09/23/22 01:00 97 119/71 (87) 93 High Flow N/C 6.00 09/23/22 01:00 100 09/23/22 00:31 95 High Flow N/C 10.00 09/23/22 00:00 85 128/72 (90) 95 High Flow N/C 6.00 09/23/22 00:00 36.1 09/22/22 23:00 107 144/80 (101) 94 High Flow N/C 6.00 09/22/22 22:09 94 High Flow N/C 10.00 09/22/22 22:00 101 148/86 (106) 97 High Flow N/C 6.00 09/22/22 21:00 98 141/78 (99) 97 High Flow N/C 6.00 09/22/22 20:00 93 159/81 (107) 94 High Flow N/C 6.00 09/22/22 19:21 102 09/22/22 19:00 105 140/78 (98) 94 High Flow N/C 6.00 09/22/22 18:25 95 High Flow N/C 10.00 09/22/22 18:00 81 136/77 (96) 94 High Flow N/C 10.00 09/22/22 17:00 77 15 114/72 (86) 95 High Flow N/C 10.00 09/22/22 16:00 83 8 122/82 (95) 94 High Flow N/C 10.00 09/22/22 15:48 36.4 09/22/22 15:00 100 21 111/80 (90) 92 High Flow N/C 10.00 09/22/22 14:33 91 High Flow N/C 10.00 09/22/22 14:06 94 High Flow N/C 10.00 09/22/22 14:00 102 143/84 (103) 93 High Flow N/C 15.00 09/22/22 13:00 97 137/95 (109) 96 High Flow N/C 15.00 09/22/22 13:00 97 09/22/22 12:00 36.4 09/22/22 12:00 81 30 126/88 (101) 96 High Flow N/C 15.00 09/22/22 11:01 80 16 110/71 (84) 94 High Flow N/C 15.00 09/22/22 11:00 80 16 110/71 (84) 94 High Flow N/C 15.00 09/22/22 10:00 86 13 109/72 (84) 93 High Flow N/C 15.00 09/22/22 09:00 85 92 High Flow N/C 15.00 09/22/22 08:28 93 High Flow N/C 15.00 09/22/22 08:00 80 96 NIV Bilevel 80.00 09/22/22 07:54 36.0 I & O 09/23/22 07:00 Intake Total 2505 ml Output Total 1300 ml Balance 1205 ml Height & Weight Height: '" Weight: lbs. oz. kg; 35.62 BMI Method: General Appearance: No Apparent Distress, WD/WN, Chronically ill HEENT: PERRL/EOMI, Normal ENT Inspection, Pharynx Normal Neck: Full Range of Motion, Normal Inspection, Non Tender, Supple, Carotid Br uit Respiratory: Chest Non Tender, Lungs Clear, No Accessory Muscle Use, No Re spiratory Distress, Decreased Breath Sounds (R base), Expiration, Wheezing Cardiovascular: Regular Rate, Rhythm, No Edema, No Gallop, No JVD, No Murmur, Normal Peripheral Pulses Capillary Refill: Less Than 3 Seconds Peripheral Pulses: 1+ Dorsalis Pedis (R), 1+ Left Dors-Pedis (L) Gastrointestinal: normal bowel sounds, non tender, soft Extremity: Normal Capillary Refill, Normal Inspection, Normal Range of Motion, Non Tender, No Calf Tenderness, No Pedal Edema Neurologic/Psychiatric: Alert, Oriented x3, No Motor/Sensory Deficits, Normal Mood/Affect Skin: Normal Color, Warm/Dry Lymphatic: No Adenopathy Results Lab Laboratory Tests 09/21/22 21:30 09/22/22 05:08 09/23/22 05:40 Assessment/Plan Assessment/Plan PNA, improving with abx, will continue COPD, keep on nigh flow nasal cannula, at time of discharge would do 6 min walk. Can go to general medical floor Critical Care: Critically Ill Patient Time spent with patient (mins): 20 LISSY SPRINGER MD Sep 23, 2022 07:37
[2022-09-23] MEDS: NOREPINEPHRINE 8 MG/250 ML 250 ML IV SCH (07:39)
[2022-09-23] MEDS: ASPIRIN E.C. 81 MG (ECOTRIN) TAB PO SCH (08:30)
[2022-09-23] MEDS: ENOXAPARIN 100 MG/1 ML (LOVENOX) SYR SC SCH (08:31)
[2022-09-23] MEDS: PANTOPRAZOLE 40 MG (PROTONIX) VIAL IV SCH (09:13)
--- NOTE | 2022-09-23 10:06 | Progress Note ---
AMY DEL TORO 09/23/22 1006: Subjective Date Seen by a Provider: Sep 23, 2022 Time Seen by a Provider: 08:20 Subjective/Events-last exam Patient seen and examined at bedside. Feels less short of breath today on 10L by nasal cannula satting in the upper 90s on my exam. She has a nonproductive cough. No chest pain, palpitations, N/V. She does endorse some jitteriness after her breathing treatments and steroids. Overall her respiratory status seems to be improving. Review of Systems General: No Chills, No Night Sweats HEENT: No Head Aches, No Visual Changes Pulmonary: Dyspnea (improved), Cough Cardiovascular: No: Chest Pain, Palpitations Gastrointestinal: No: Nausea, Vomiting, Abdominal Pain Genitourinary: No Dysuria, No Hematuria Neurological: No: Change in speech, Confusion Focused Exam Lactate Level 09/21/22 21:30: Lactic Acid Level 2.30*H 09/21/22 23:30: Lactic Acid Level 1.87 09/22/22 05:08: Lactic Acid Level 1.03 Time of Focused Exam: 23:00 Objective Exam Last Set of Vital Signs Vital Signs Date Time Temp Pulse Resp B/P (MAP) Pulse Ox O2 Delivery O2 Flow Rate FiO2 09/23/22 09:00 80 133/74 (93) 93 High Flow N/C 6.00 09/23/22 07:53 37.3 09/23/22 06:00 12 09/22/22 03:26 70 Capillary Refill : Less Than 3 Seconds I&O Intake and Output 09/23/22 00:00 Intake Total 2955 ml Output Total 600 ml Balance 2355 ml Intake Oral 1650 ml IV Total 1305 ml Output Urine Total 600 ml # Voids 3 # Bowel Movements 1 Daily Weight Change No General: Alert, Oriented X3, Cooperative HEENT: Atraumatic, EOMI Neck: Supple Lungs: Clear to Auscultation Heart: Regular Rate Abdomen: Soft, No Tenderness Extremities: No Cyanosis, Normal Pulses Psych/Mental Status: Mental Status NL, Mood NL Results Lab Laboratory Tests 09/22/22 10:53: Glucometer 179H 09/22/22 20:41: Glucometer 191H 09/23/22 05:40: White Blood Count 16.4H, Red Blood Count 4.31, Hemoglobin 9.4L, Hematocrit 36, Mean Corpuscular Volume 83, Mean Corpuscular Hemoglobin 22L, Mean Corpuscular Hemoglobin Concent 26L, Red Cell Distribution Width 19.0H, Platelet Count 185, Mean Platelet Volume 12.0, Immature Granulocyte % (Auto) 1, Neutrophils (%) (Auto) 91H, Lymphocytes (%) (Auto) 4L, Monocytes (%) (Auto) 5, Eosinophils (%) (Auto) 0, Basophils (%) (Auto) 0, Neutrophils # (Auto) 14.9H, Lymphocytes # (Auto) 0.6L, Monocytes # (Auto) 0.8, Eosinophils # (Auto) 0.0, Basophils # (Auto) 0.0, Immature Granulocyte # (Auto) 0.1, Sodium Level 140, Potassium Level 4.8, Chloride Level 103, Carbon Dioxide Level 26, Anion Gap 11, Blood Urea Nitrogen 21H, Creatinine 0.79, Estimat Glomerular Filtration Rate 83, BUN/Creatinine Ratio 27, Glucose Level 227H, Calcium Level 10.3H, Corrected Calcium 10.8H, Phosphorus Level 2.8, Magnesium Level 2.3, Total Bilirubin 0.2, Aspartate Amino Transf (AST/SGOT) 17, Alanine Aminotransferase (ALT/SGPT) 21, Alkaline Phosphatase 84, Total Protein 6.3L, Albumin 3.4 09/23/22 05:51: Glucometer 211H Microbiology 09/21/22 Urine Culture - Preliminary, Resulted NO GROWTH 09/21/22 Blood Culture - Preliminary, Resulted No growth Assessment/Plan Assessment/Plan Assess & Plan/Chief Complaint PNA of R lower lobe Acute hypoxic and hypercapnic respiratory failure Sepsis Leukocytosis Lactic acidosis Continue oxygen supplementation, currently on 10L by high flow nasal cannula, wean as tolerated Continue duonebs and incentive spirometer Continue decadron 4mg BID Ceftriaxone 1000mg and Azithromycin 500mg WBC up to 16.4, steroids likely contributing remains afebrile Lactic acid down to 1.03 from 2.3 Blood pressure stable, no pressors required ABG showed evidence of respiratory acidosis with compensation Negative viral panel for flu A, B and covid Pulmonary embolism D dimer elevated in ED at 0.79 CTA showed evidence of PE in R subsegmental branches of the right lower lobe pulmonary artery Lovenox 90 mg BID remains hemodynamically stable Elevated troponin Elevated BNP minimal troponin elevation Cardiology consulted Likely type 2 RI secondary to hypoxia Probable UTI UA was + for bacteria and leukocyte esterase urine cx no growth continue IV fluids and abx as above Recent COVID infection ASIA Pulmonary Hypertension has used CPAP in the past, currently does not use Echo estimated pulmonary arterial pressure at 60-65 consistent with moderate pulm htn Will need outpatient follow up for management of vasodilators +/- diuretics DVT ppx- therapeutic dose of lovenox Diet- regular CODE status- full Move to [facility] Clinical Quality Measures Admission Status Admission Dx PNA of R lower lobe Acute hypoxic and hypercapnic respiratory failure Sepsis Leukocytosis Lactic acidosis Cotinue oxygen supplementation with bipap. Wean to high flow nasal cannula as tolerated Continue duonebs and incentive spirometer Received dexamethasone in ED Ceftriaxone 1000mg and Azithromycin 500mg WBC up to 15.9 from 13.7 Afebrile Lactic acid down to 1.03 from 2.3 Blood pressure stable as of now with NaCl 1 L at 150mls/hr, pressor support if necessary ABG showed evidence of respiratory acidosis with compensation Negative viral panel for flu A, B and covid Pulmonary embolism D dimer elevated in ED at 0.79 CTA showed evidence of PE in R subsegmental branches of the right lower lobe pulmonary artery Lovenox 90 mg BID Elevated troponin Elevated BNP minimal troponin elevation Cardiology consulted Likely type 2 RI secondary to hypoxia Probable UTI UA was + for bacteria and leukocyte esterase continue IV fluids and abx as above Recent COVID infection ASIA has used CPAP in the past, currently does not use DVT ppx- therapeutic dose of lovenox Diet- regular CODE status- full JANELLE DELEON DO 09/23/22 2205: Subjective Subjective/Events-last exam Patient was transferred to fourth floor but after a couple hours she began having a large amount of red blood in the toilet and became tachycardic and hypotensive requiring transfer to the ICU and holding aspirin and Lovenox I did speak with Dr. Goetz who will see her and perform EGD tomorrow Colonoscopy was last done 3 years ago Assessment/Plan Assessment/Plan Assess & Plan/Chief Complaint Assessment: Profound acute hematochezia requiring holding of Lovenox and aspirin and transfer back to ICU Supervisory-Addendum Brief Verification & Attestation Participated in pt care: history, MDM, physical Personally performed: exam, history, MDM, supervision of care Care discussed with: Medical Student Procedures: n/a Results interpretation: Verified all documentation Verification and Attestation of Medical Student E/M Service A medical student performed and documented this service in my presence. I r eviewed and verified all information documented by the medical student and made modifications to such information, when appropriate. I personally performed the physical exam and medical decision making. Janelle Deleon, Sep 23, 2022,22:04 AMY DEL TORO Sep 23, 2022 10:06 JANELLE DELEON DO Sep 23, 2022 22:05
--- NOTE | 2022-09-23 10:20 | Progress Note - Cardiology ---
Cardiology SOAP Progress Note Subjective: Shortness of breath better Leg swelling better No n/v/d No focal weakness No cp or palp or syncope Some gen weakness Objective: I&O/Vital Signs 09/22/22 09/23/22 09/23/22 09/23/22 23:00 00:00 00:00 00:31 Temp 36.1 Pulse 107 85 B/P (MAP) 144/80 (101) 128/72 (90) Pulse Ox 94 95 95 O2 Delivery High Flow N/C High Flow N/C High Flow N/C O2 Flow Rate 6.00 6.00 10.00 09/23/22 09/23/22 09/23/22 09/23/22 01:00 01:00 02:00 03:00 Pulse 100 97 99 100 B/P (MAP) 119/71 (87) 150/86 (107) 144/75 (98) Pulse Ox 93 97 96 O2 Delivery High Flow N/C High Flow N/C High Flow N/C O2 Flow Rate 6.00 6.00 6.00 09/23/22 09/23/22 09/23/22 09/23/22 04:00 04:00 04:09 05:00 Temp 36.1 Pulse 79 75 Resp 15 B/P (MAP) 131/83 (99) 121/69 (86) Pulse Ox 92 96 96 O2 Delivery High Flow N/C High Flow N/C High Flow N/C O2 Flow Rate 6.00 10.00 6.00 09/23/22 09/23/22 09/23/22 09/23/22 06:00 07:00 07:00 07:07 Pulse 82 77 79 Resp 12 B/P (MAP) 125/87 (100) 139/76 (98) Pulse Ox 94 95 97 O2 Delivery High Flow N/C High Flow N/C High Flow N/C O2 Flow Rate 6.00 6.00 10.00 09/23/22 09/23/22 09/23/22 09/23/22 07:39 07:53 08:00 08:00 Temp 37.3 Pulse 82 90 B/P (MAP) 125/87 131/68 (83) Pulse Ox 96 93 O2 Delivery High Flow N/C High Flow N/C O2 Flow Rate 10.00 6.00 09/23/22 09/23/22 09:00 10:00 Pulse 80 80 B/P (MAP) 133/74 (93) 131/77 (99) Pulse Ox 93 99 O2 Delivery High Flow N/C High Flow N/C O2 Flow Rate 6.00 6.00 09/23/22 00:00 Intake Total 1955 ml Output Total 300 ml Balance 1655 ml Constitutional: AAO x 3, well-developed, well-nourished Respiratory: No accessory muscle use, No respiratory distress; chest expansion is symmetric, chest is bilaterally symmetric, other (coarse breath sounds lower lobes bilat) Cardiovascular: regular rate-rhythm; No JVD; S1 and S2 Gastrointestional: soft, round; No guarding; audible bowel sounds Extremities: other (mild to mod bilat LE swelling) Neurologic/Psychiatric: other (moves all extremities) Skin: normal color, warm/dry; No rash on exposed areas, No ulcerations on exposed areas Results/Procedures: Labs Laboratory Tests 09/22/22 10:53: Glucometer 179H 09/22/22 20:41: Glucometer 191H 09/23/22 05:40: White Blood Count 16.4H, Red Blood Count 4.31, Hemoglobin 9.4L, Hematocrit 36, Mean Corpuscular Volume 83, Mean Corpuscular Hemoglobin 22L, Mean Corpuscular Hemoglobin Concent 26L, Red Cell Distribution Width 19.0H, Platelet Count 185, Mean Platelet Volume 12.0, Immature Granulocyte % (Auto) 1, Neutrophils (%) (Auto) 91H, Lymphocytes (%) (Auto) 4L, Monocytes (%) (Auto) 5, Eosinophils (%) (Auto) 0, Basophils (%) (Auto) 0, Neutrophils # (Auto) 14.9H, Lymphocytes # (Auto) 0.6L, Monocytes # (Auto) 0.8, Eosinophils # (Auto) 0.0, Basophils # (Auto) 0.0, Immature Granulocyte # (Auto) 0.1, Sodium Level 140, Potassium Level 4.8, Chloride Level 103, Carbon Dioxide Level 26, Anion Gap 11, Blood Urea Nitrogen 21H, Creatinine 0.79, Estimat Glomerular Filtration Rate 83, BUN/Creatinine Ratio 27, Glucose Level 227H, Calcium Level 10.3H, Corrected Calcium 10.8H, Phosphorus Level 2.8, Magnesium Level 2.3, Total Bilirubin 0.2, Aspartate Amino Transf (AST/SGOT) 17, Alanine Aminotransferase (ALT/SGPT) 21, Alkaline Phosphatase 84, Total Protein 6.3L, Albumin 3.4 09/23/22 05:51: Glucometer 211H Microbiology 09/21/22 Urine Culture - Preliminary, Resulted NO GROWTH 09/21/22 Blood Culture - Preliminary, Resulted No growth Laboratory Tests 09/21/22 21:30 09/22/22 05:08 09/23/22 05:40 A/P: Assessment: Respiratory distress with hypoxia - multi-factorial Pneumonia with sepsis - management per medical/eICU services ?UTI - management per medical services Pulmoary embolism - CTA of the chest on 09-21-22: CT angiographic findings are consistent with pulmonary embolism with nonocclusive thrombus in subsegmental branches of the right lower lobe pulmonary artery - Echo on 09-22-22: LVEF 55-60%, mild MR, mod TR, PASP 60-65 mmHg Minimal troponin elevation - likely Type 2 MT secondary to hypoxia and sepsis - Reports h/o cardiac cath in [place] in 2021 d/t elevated calcium score (550), reports it only showed mild plaque (35%) New onset bilat LE swelling - L>R HTN - multi-drug regimen (Norvasc, Valsartan, HCTA) HLD - Pravastatin at home DM 2 Probable COPD - quit smoking at age 48 Recent abdominal pain with poor intake - management per medical services H/o [facility] Plan: * Continue anticoag for PE * Medical svce managing pneumonia/sepsis * Resume home meds for htn * Monitor labs STAN ANTONY MD FACP FAC CCDS Sep 23, 2022 10:20
[2022-09-23] MEDS ORDERED: FLUTICASONE NASAL SPRAY (FLONASE) 16 GM BTL NS PRN (12:30)
[2022-09-23] MEDS ORDERED: NON-FORMULARY MEDICATION 1 EA EA (Ondansetron HCl 4 MG) PO PRN (12:30)
[2022-09-23] MEDS ORDERED: ONDANSETRON 4 MG (ZOFRAN) ORAL DISSOLVE TAB PO PRN (12:45)
--- NOTE | 2022-09-23 13:20 | Occ Therapy Progress Note ---
Therapy Progress Note OT order received. Patient assessed by therapy and pleasantly declines Occupational Therapy, please discontinue OT order AZEB PIMENTEL OT Sep 23, 2022 13:20
--- NOTE | 2022-09-23 13:56 | Physical Therapy Evaluation ---
PT Evaluation-General Medical Diagnosis Admission Date Sep 22, 2022 at 01:04 Medical Diagnosis: respiratory failure/PE/pneumonia Onset Date: Sep 22, 2022 Therapy Diagnosis Therapy Diagnosis: debility Precautions Precautions/Isolations: Fall Prevention, Standard Precautions Referral Physician: Edgardo Reason for Referral: Evaluation/Treatment Medical History Pertinent Medical History: DM, HTN Current History ER secondary to SAO2 45-50% (chronic SOA) Reviewed History: Yes Social History Home: Apartment Current Living Status: Alone Entry Into Home: Level Entry Prior Prior Level of Function SCALE: Activities may be completed with or without assistive devices. 1-Hizgqawopg-ylewhqi completes the activity by him/herself with no assistance from a helper. 5-Set-up or Clean-up Assistance-helper sets up or cleans up; patient completes activity. [place] assists only prior to or following the activity. 4-Supervision or Touching Assistance-helper provides verbal cues and/or touching/steadying and/or contact guard assistance as patient completes activity. Assistance may be provided throughout the activity or intermittently. 3-Partial/Moderate Assistance-helper does LESS THAN HALF the effort. [place] lifts, holds or supports trunk or limbs, but provides less than half the effort. 2-Substantial/Maximal Assistance-helper does MORE THAN HALF the effort. [place] lifts or holds trunk or limbs and provides more than half the effort. 8-Myrgrtwtz-olhdcp does ALL the effort. Patient does none of the effort to complete the activity. Or, the assistance of 2 or more helpers is required for the patient to complete the activity. If activity was not attempted, code reason: 7-Patient Refused. 9-Not Applicable-not attempted and the patient did not perform the activity before the current illness, exacerbation or injury. 10-Not Attempted due to Environmental Limitations-(lack of equipment, weather restraints, etc.). 88-Not Attempted due to Medical Conditions or Safety Concerns. Bed Mobility: 6 Transfers (B,C,W/C): 6 Gait: 6 Indoor Mobility (Ambulation): Independent Prior Devices Use: None PT Evaluation-Current Subjective Patient agrees to PT. Objective Patient Orientation: Normal For Age Attachments: Oxygen (10L HF NC) ROM/Strength ROM Lower Extremities bilateral LE WFL Strength Lower Extremities 4/5 grossly bilateral LE all planes Integumentary/Posture Bowel Incontinence: No Bladder Incontinence: No Posture WFL Neuromuscular (Tone, Coordination, Reflexes) grossly intact Sensory Vision: Wears Glasses Hearing: Functional Transfers Sit to Stand (QC): 6 Gait Mode of Locomotion: Walk Anticipated Mode of Locomotion: Walk Walk 10 feet (QC): 6 Walk 50 ft with 2 Turns(QC): 6 Walk 150 ft (QC): 6 Distance: >400' Gait Assistive Device: None Comments/Gait Description safe and functional with no deviation Balance Sitting Static: Normal Sitting Dynamic: Normal Standing Static: Normal Standing Dynamic: Normal Assessment/Needs Patient is currently at independent OF with all gross motor skills safely and does not require skilled PT intervention. Patient is safe to be up ad sharon with functional O2 tubing. RN notified. Rehab Potential: Fair PT Plan Treatment/Plan Treatment Plan: Discontinue PT, goals met Treatment Duration: Sep 23, 2022 Frequency: 1 time per week Estimated Hrs Per Day: .25 hour per day Patient and/or Family Agrees t: Yes Time Time In: 1255 Time Out: 1310 DATE: Sep 23, 2022 Total Billed Treatment Time: 15 Total Billed Treatment 1 visit [facility] 15 min DORI RATLIFF PT Sep 23, 2022 13:56
[2022-09-23] MEDS: FERROUS SULF 325 MG (IRON) TAB PO SCH (14:48)
[2022-09-23] MEDS ORDERED: NS IV 500 ML 500 ML IV PRN (16:15)
[2022-09-23 17:25] LABS: HEMOGLOBIN 9.2 g/dL (11.5-16.0)
--- NOTE | 2022-09-23 18:37 | Tele-ICU Progress Note ---
Subjective Date Seen by a Provider: Sep 23, 2022 Time Seen by a Provider: 18:35 Subjective/Events-last exam sent to floor, on floor had rectal bleed, Hb unchanbeed at 9.2, P 81, BP 144/80, will stay in MICU for montioring of VS and Hb Sepsis Event Evaluation Height, Weight, BMI Height: '" Weight: lbs. oz. kg; 35.62 BMI Method: Focused Exam Lactate Level 09/21/22 21:30: Lactic Acid Level 2.30*H 09/21/22 23:30: Lactic Acid Level 1.87 09/22/22 05:08: Lactic Acid Level 1.03 Time of Focused Exam: 23:00 Exam Exam Patient acknowledged, consented, and participated in this virtual visit which was conducted using real time audio/video Vital Signs Date Time Temp Pulse Resp B/P (MAP) Pulse Ox O2 Delivery O2 Flow Rate FiO2 09/23/22 18:00 81 15 144/80 (101) 97 High Flow N/C 10.00 09/23/22 17:00 96 High Flow N/C 10.00 09/23/22 17:00 87 18 124/67 (86) 96 High Flow N/C 10.00 09/23/22 16:50 89 09/23/22 15:35 36.5 97 18 119/70 (86) 93 High Flow N/C 10.00 09/23/22 14:56 97 High Flow N/C 10.00 09/23/22 12:00 36.3 09/23/22 12:00 96 High Flow N/C 10.00 09/23/22 12:00 86 141/73 (96) 95 High Flow N/C 6.00 09/23/22 11:04 80 131/77 09/23/22 11:00 85 126/82 (91) 94 High Flow N/C 6.00 09/23/22 10:53 94 High Flow N/C 10.00 09/23/22 10:00 80 131/77 (99) 99 High Flow N/C 6.00 09/23/22 09:00 80 133/74 (93) 93 High Flow N/C 6.00 09/23/22 08:00 90 131/68 (83) 93 High Flow N/C 6.00 09/23/22 08:00 96 High Flow N/C 10.00 09/23/22 07:53 37.3 09/23/22 07:39 82 125/87 09/23/22 07:07 97 High Flow N/C 10.00 09/23/22 07:00 79 139/76 (98) 95 High Flow N/C 6.00 09/23/22 07:00 77 09/23/22 06:00 82 12 125/87 (100) 94 High Flow N/C 6.00 09/23/22 05:00 75 15 121/69 (86) 96 High Flow N/C 6.00 09/23/22 04:09 96 High Flow N/C 10.00 09/23/22 04:00 79 131/83 (99) 92 High Flow N/C 6.00 09/23/22 04:00 36.1 09/23/22 03:00 100 144/75 (98) 96 High Flow N/C 6.00 09/23/22 02:00 99 150/86 (107) 97 High Flow N/C 6.00 09/23/22 01:00 97 119/71 (87) 93 High Flow N/C 6.00 09/23/22 01:00 100 09/23/22 00:31 95 High Flow N/C 10.00 09/23/22 00:00 85 128/72 (90) 95 High Flow N/C 6.00 09/23/22 00:00 36.1 09/22/22 23:00 107 144/80 (101) 94 High Flow N/C 6.00 09/22/22 22:09 94 High Flow N/C 10.00 09/22/22 22:00 101 148/86 (106) 97 High Flow N/C 6.00 09/22/22 21:00 98 141/78 (99) 97 High Flow N/C 6.00 09/22/22 20:00 93 159/81 (107) 94 High Flow N/C 6.00 09/22/22 19:21 102 09/22/22 19:00 105 140/78 (98) 94 High Flow N/C 6.00 I & O 09/23/22 07:00 Intake Total 2505 ml Output Total 1300 ml Balance 1205 ml Height & Weight Height: '" Weight: lbs. oz. kg; 35.62 BMI Method: General Appearance: No Apparent Distress, WD/WN, Chronically ill HEENT: PERRL/EOMI, Normal ENT Inspection, Pharynx Normal Neck: Full Range of Motion, Normal Inspection, Non Tender, Supple, Carotid Bruit Respiratory: Chest Non Tender, Lungs Clear, No Accessory Muscle Use, No Respiratory Distress, Decreased Breath Sounds (R base), Expiration, Wheezing Cardiovascular: Regular Rate, Rhythm, No Edema, No Gallop, No JVD, No Murmur, Normal Peripheral Pulses Capillary Refill: Less Than 3 Seconds Peripheral Pulses: 1+ Dorsalis Pedis (R), 1+ Left Dors-Pedis (L) Gastrointestinal: normal bowel sounds, non tender, soft Extremity: Normal Capillary Refill, Normal Inspection, Normal Range of Motion, Non Tender, No Calf Tenderness, No Pedal Edema Neurologic/Psychiatric: Alert, Oriented x3, No Motor/Sensory Deficits, Normal Mood/Affect Skin: Normal Color, Warm/Dry Lymphatic: No Adenopathy Results Lab Laboratory Tests 09/21/22 21:30 09/22/22 05:08 09/23/22 05:40 09/23/22 17:20 Assessment/Plan Assessment/Plan sent to floor, on floor had rectal bleed, Hb unchanbeed at 9.2, P 81, BP 144/80, will stay in MICU for montioring of VS and Hb Critical Care: Critically Ill Patient Time spent with patient (mins): 15 LISSY SPRINGER MD Sep 23, 2022 18:37
--- NOTE | 2022-09-23 18:45 | Consultation - Surgery ---
History of Present Illness History of Present Illness Patient Consulted On(maine/time) 09/23/22 18:37 Time Seen by Provider: 17:34 History of Present Illness Surgery asked to consult regarding Hematochezia. HPI per IM: Hilaria Jimenes is a 62yo F with past medical hx of HTN, HLD, and T2DM who presented to the ED on 09/21 for shortness of breath and O2 sats in the 50s at home. She recently returned from a trip to [place] to see family and has been experiencing abdominal pain for the last week. This pain has persisted but has not been severe enough for her to see a medical provider. She underwent a venous doppler study of the LLE yesterday after going to her primary care provider with complaints of LLE swelling. According to the patient the study was negative for DVT. She began feeling short of breath before her appointment but this sensation worsened throughout the day leading her to come to the ED. She was hypoxic and found to have R sided PNA and R sided PE. She was placed on bipap and received duonebs.. This morning she reports breathing easier. She has no complaints of cough, chest pain, or fever/chills. Denies any recent sick contacts. She reports she has no history of lung disease but her primary care provider has mentioned COPD to her due to her smoking history and intermittent shortness of breath. She has no hx of DVT in the past. When I spoke to pt she stated she has never had a bloody BM before, not had bleeding when she had hemorrhoids from childbirth and has not had a large firm BM to cause an anal tear. She came in Monday night for leg swelling and SOB. CTA of chest showed a PE and she was started on ASA and Lovenox. Pt states she has had nausea, bloating and general abdominal complaints since around March. This also coincides with when she started Ozempic and then got Covid in April . She was also recently treated for "tooth infection" with PCN and now remembers that that caused worsening of her abdominal pain with 4 days of diarrhea. She went to [place] last weekend, drove home on Monday and that is when she notice swelling and pain in her left leg. Her Hg was 13.5 when she donated blood on August 10 and then 11.7 on September 05. Allergies and Home Medications Allergies Coded Allergies: Sulfa (Sulfonamide Antibiotics) (Verified Allergy, Unknown, 09/21/22) lisinopril (Verified Allergy, Unknown, 09/21/22) metronidazole (Verified Allergy, Unknown, 09/21/22) Patient Home Medication List Home Medication List Reviewed: Yes Albuterol Sulfate (Ventolin Hfa) 90 Mcg Hfa.aer.ad, 2 PUFF INH Q4H PRN for SHORTNESS OF BREATH, (Reported) Entered as Reported by: LUKE FLOREZ on 09/22/221229 Last Action: Held Amlodipine Besylate (Amlodipine Besylate) 5 Mg Tablet, 5 MG PO DAILY, (Reported) Entered as Reported by: LUKE FLOREZ on 09/22/221229 Last Action: Continued Aspirin (Aspirin) 81 Mg Tab.chew, 81 MG PO DAILY, (Reported) Entered as Reported by: LUKE FLOREZ on 09/22/221229 Last Action: Continued Cholecalciferol (Vitamin D3) (Vitamin D3) 125 Mcg (5000 Unit) Tablet, 125 MCG PO DAILY, (Reported) Entered as Reported by: LUKE FLOREZ on 09/22/221229 Last Action: Continued Ferrous Sulfate (Ferosul) 325 Mg (65 Mg Iron) Tablet, 325 MG PO Q48H, (Reported) Entered as Reported by: LUKE FLOREZ on 09/22/221229 Last Action: Continued Fexofenadine HCl (Fexofenadine HCl) 180 Mg Tablet, 180 MG PO DAILY, (Reported) Entered as Reported by: LUKE FLOREZ on 09/22/221229 Last Action: Converted Fluticasone Propionate (Fluticasone Propionate) 50 Mcg/Actuation [place].susp, 1 SPRAY NSEACH BID PRN for CONGESTION, (Reported) Entered as Reported by: LUKE FLOREZ on 09/22/221229 Last Action: Continued Glimepiride (Glimepiride) 2 Mg Tablet, 2 MG PO DAILY, (Reported) Entered as Reported by: LUKE FLOREZ on 09/22/221229 Last Action: Continued Hydrochlorothiazide (Hydrochlorothiazide) 25 Mg Tablet, 25 MG PO DAILY, (Reported) Entered as Reported by: LUKE FLOREZ on 09/22/221229 Last Action: Continued Ibuprofen (Ibuprofen) 200 Mg Capsule, 800 MG PO Q8H PRN for PAIN-MILD (1-4), (Reported) Entered as Reported by: LUKE FLOREZ on 09/22/221229 Last Action: Held L.acidoph & Paracasei,B.lactis (Probiotic) 10 Billion Cell Capsule, 1 EACH PO DAILY, (Reported) Entered as Reported by: LUKE FLOREZ on 09/22/221229 Last Action: Converted Magnesium Oxide (Magnesium) 400 Mg Magnesium Tablet, 400 MG PO DAILY, (Reported) Entered as Reported by: LUKE FLOREZ on 09/22/221229 Last Action: Converted Ondansetron HCl (Ondansetron HCl) 4 Mg Tablet, 4 MG PO Q6H PRN for NAUSEA/VOMITING-1ST LINE, (Reported) Entered as Reported by: LUKE FLOREZ on 09/22/221229 Last Action: Converted Pravastatin Sodium (Pravastatin Sodium) 40 Mg Tablet, 40 MG PO DAILY, (Reported) Entered as Reported by: LUKE FLOREZ on 09/22/221229 Last Action: Converted Rimegepant Sulfate (Nurtec Odt) 75 Mg Tab.rapdis, 75 MG PO PRN Prescribed by: TOMMY HERNANDEZ on 09/22/221707 Last Action: Converted Ubidecarenone (Coq-10) 100 Mg Capsule, 100 MG PO DAILY, (Reported) Entered as Reported by: LUKE FLOREZ on 09/22/221229 Last Action: Held Valacyclovir HCl (Valacyclovir) 500 Mg Tablet, 500 MG PO DAILY, (Reported) Entered as Reported by: LUKE FLOREZ on 09/22/221229 Last Action: Continued Valsartan (Valsartan) 320 Mg Tablet, 320 MG PO DAILY, (Reported) Entered as Reported by: LUKE FLOREZ on 09/22/221229 Last Action: Converted Vitamin B Complex/Folic Acid (Super B Maxi Complex Caplet) 0.4 Mg Tablet, 0.4 MG PO DAILY, (Reported) Entered as Reported by: LUKE FLOREZ on 09/22/221229 Last Action: Held [Berberine W/Cinnamon] , 2 EA PO DAILY, (Reported) Entered as Reported by: LUKE FLOREZ on 09/22/221229 Last Action: Held Past Nliokrr-Fbjurs-Mjumhh Hx Patient Social History Smoking Status: Former Smoker (quit 15 years ago) Alcohol Use?: No Surgeries History of Surgeries: Yes Surgeries: Appendectomy, Gallbladder, Hysterectomy, Oophorectomy, Orthopedic (R knee scope) Respiratory History of Respiratory Disorde: Yes (CHRONIC DYSPNEA) Respiratory Disorders: Sleep Apnea Cardiovascular History of Cardiac Disorders: Yes Cardiac Disorders: High Cholesterol, Hypertension Neurological History of Neurological Disord: No Reproductive System Hx Reproductive Disorders: Yes (V.I.N.--S/P PARTIAL VULVECTOMY; HYST/BSO) Female Reproductive Disorders: Menstrual Problems SUGAR DRIER History: Hysterectomy, Menopausal Genitourinary History of Genitourinary Disor: No Gastrointestinal History of Gastrointestinal Di: No Musculoskeletal History of Musculoskeletal Dis: No Endocrine History of Endocrine Disorders: Yes (OBESITY) Endocrine Disorders: Diabetes, Non-Insulin dep HEENT History of HEENT Disorders: No Cancer History of Cancer: No Psychosocial History of Psychiatric Problem: No Integumentary History of Skin or Integumenta: No Blood Transfusions History of Blood Disorders: No Family Medical History Significant Family History: Other Conditions/Hx (no family hx of DVT or PE, Father of bleeding ulcer in his stomach) Review of Systems-General Constitutional: No chills, No diaphoresis; malaise, weakness EENTM: No blurred vision, No mouth swelling, No epistaxis Respiratory: dyspnea on exertion; No hemoptysis, No phlegm; short of breath Cardiovascular: No chest pain, No edema, No palpitations Gastrointestinal: abdominal pain; No hematemesis; nausea, vomiting, other (hematochezia) Genitourinary: No dysuria, No frequency, No hematuria Musculoskeletal: No joint pain, No joint swelling; muscle pain, muscle cramps Skin: No change in color, No change in hair/nails Psychiatric/Neurological: Denies Anxiety, Denies Depressed, Denies Seizure, Denies Tremors Physical Exam-General Problems Physical Exam Vital Signs Vital Signs - First Documented 09/22/22 03:26 FiO2 70 Capillary Refill : Less Than 3 Seconds General Appearance: no apparent distress, obese Eyes: Bilateral Eye PERRL, Bilateral Eye EOMI HEENT: pharynx normal; No scleral icterus (R), No scleral icterus (L) Neck: non-tender, supple Respiratory: no respiratory distress, no accessory muscle use, decreased breath sounds (right base), crackles (at bases); No rhonchi, No stridor Cardiovascular: regular rate, rhythm, no murmur Gastrointestinal: soft, no organomegaly, distended (mostly normal body habitus), tenderness (diffusely with deep palpation) Rectal: deferred Back: no CVA tenderness, no vertebral tenderness Extremities: no pedal edema, no calf tenderness Neurologic/Psychiatric: 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 II-XII nml as tested, alert, oriented x 3 Skin: normal color, warm/dry Lymphatic: no adenopathy (neck, axilla or groin) Data Review Labs Laboratory Tests 09/22/22 20:41: Glucometer 191H 09/23/22 05:40: White Blood Count 16.4H, Red Blood Count 4.31, Hemoglobin 9.4L, Hematocrit 36, Mean Corpuscular Volume 83, Mean Corpuscular Hemoglobin 22L, Mean Corpuscular Hemoglobin Concent 26L, Red Cell Distribution Width 19.0H, Platelet Count 185, Mean Platelet Volume 12.0, Immature Granulocyte % (Auto) 1, Neutrophils (%) (Auto) 91H, Lymphocytes (%) (Auto) 4L, Monocytes (%) (Auto) 5, Eosinophils (%) (Auto) 0, Basophils (%) (Auto) 0, Neutrophils # (Auto) 14.9H, Lymphocytes # (Auto) 0.6L, Monocytes # (Auto) 0.8, Eosinophils # (Auto) 0.0, Basophils # (Auto) 0.0, Immature Granulocyte # (Auto) 0.1, Sodium Level 140, Potassium Level 4.8, Chloride Level 103, Carbon Dioxide Level 26, Anion Gap 11, Blood Urea Nitrogen 21H, Creatinine 0.79, Estimat Glomerular Filtration Rate 83, BUN/Creatinine Ratio 27, Glucose Level 227H, Calcium Level 10.3H, Corrected Calcium 10.8H, Phosphorus Level 2.8, Magnesium Level 2.3, Total Bilirubin 0.2, Aspartate Amino Transf (AST/SGOT) 17, Alanine Aminotransferase (ALT/SGPT) 21, Alkaline Phosphatase 84, Total Protein 6.3L, Albumin 3.4 09/23/22 05:51: Glucometer 211H 09/23/22 15:47: Glucometer 194H 09/23/22 17:20: Hemoglobin 9.2L, Hematocrit 35 Microbiology 09/21/22 Urine Culture - Final, Complete See Comments 09/21/22 Blood Culture - Preliminary, Resulted No growth Radiology Date of Exam:09/21/22 CT ANGIO CHEST W (R/O PE) INDICATION: 62-year-old female with shortness of breath, hypoxia, assess for pulmonary embolism. COMPARISONS: None TECHNIQUE: Helical axial tomographic images of the chest are obtained at 3 mm intervals. Multiplanar reconstructions are provided for interpretation including MIP images. FINDINGS: There are few shotty benign-appearing axillary nodes but no evidence of axillary adenopathy. There is also few small mediastinal or hilar nodes but no significant hilar or mediastinal adenopathy. Cardiac contour is normal. Thoracic aortic contour is also normal with no evidence of aneurysm or dissection. Pulmonary outflow tract as well as the right and left pulmonary arteries, their segmental branches are patent. The subsegmental branches of right lower lobe pulmonary artery, however, does show nonocclusive thrombus consistent with a pulmonary embolism. Lungs show coarse interstitial opacities. There is bilateral lower lobe consolidations, right greater than left. There is no effusion or pneumothorax. Limited assessment of the abdomen shows no overall gross abnormalities. IMPRESSION: 1. CT angiographic findings are consistent with pulmonary embolism with nonocclusive thrombus in subsegmental branches of the right lower lobe pulmonary artery. 2. Bilateral lower lobe consolidation with few scattered 5 lobe interstitial infiltrates probably atelectatic in nature. 3. There is no evidence of aortic aneurysm or dissection. 4. Few shotty benign-appearing axillary, hilar or mediastinal nodes are seen but no significant adenopathy. Additional nonemergent findings as described above. Agree with [facility] report. Dictated by: Dictated on workstation # [id number] Dict: 09/22/22 0505 Trans: 09/22/22 1149 RACHEL [id number] Interpreted by: DILIP GIRON MD Electronically signed by: DILIP GIRON MD 09/22/22 1149 Assessment/Plan Assessment/Plan Assessment/Plan Hematochezia Anemia PNA of R lower lobe Acute on Chronic Respiratory failure - improved Leukocytosis Pulmonary embolism Elevated troponin Elevated BNP ASIA Pulmonary Hypertension DM type II I spent over an hour with pt; talking to her about options, then talking to her 2 daughters (getting one on the phone), having her bring up [facility] and [place] Hemoglobins and finally discussing her options. I also reviewed all her imaging myself and discussed case with Dr. Reynoso. The pt had an EGD and Colonoscopy 3yrs ago (I went over pictures, path and op report) that were mostly benign; although, she did have moderate Gastritis. Pt is mainly worried because her father of bleeding ulcer in the stomach that "hospital didn't find in time". Going over options; do nothing, stop Lovenox, do scopes, monitor Hg. She would like to check Hg in the AM, but most likely plan on EGD in am. We did talk about risks and complications of that not limited to pain, bleeding (from the scope which could be bad because of blood thinners), infection and even esophageal perforation. She will think about colonoscopy depending on what is found on EGD and her Hg. Her Lovenox has already been stopped, she is on O2 as needed and will monitor WBC. She still does have some abdominal pain and may need a CT of abd/pelvis, but honestly I think most of her abdominal symptoms might be from the Ozempic she was taking. Continue home meds and will make NPO after midnight. Can get consent in am. JUAN LUIS DO Sep 23, 2022 18:45
[2022-09-23] MEDS ORDERED: RT-ALBUTEROL/IPRATROPIUM 3 ML (DUONEB) VIAL INH PRN (20:15)
[2022-09-23 20:16] VITALS: BP 144/80
[2022-09-23] MEDS ORDERED: RT-ALBUTEROL/IPRATROPIUM 3 ML (DUONEB) VIAL INH SCH (21:00)
[2022-09-23] MEDS: cefTRIAXone IV/IM 1,000 MG in NS (IVPB) 50 ML IV SCH (21:29)
[2022-09-23] MEDS: MONTELUKAST 10 MG (SINGULAIR) TAB PO SCH (21:29)
[2022-09-23] MEDS: AZITHROMYCIN 250 MG TAB (ZITHROMAX) PO SCH (21:29)
[2022-09-24 05:44] LABS: BASOPHILS % (AUTO) 0 % (0-10); EOSINOPHILS % (AUTO) 0 % (0-10); HEMATOCRIT 33 % (35-52); HEMOGLOBIN 8.8 g/dL (11.5-16.0); LYMPHOCYTES # (AUTO) 0.6 10^3/uL (1.0-4.0); LYMPHOCYTES % (AUTO) 5 % (12-44); MEAN CORPUSCULAR HEMOGLOBIN 21 pg (25-34); MEAN CORPUSCULAR HGB CONC 26 g/dL (32-36); MEAN CORPUSCULAR VOLUME 81 fL (80-99); MEAN PLATELET VOLUME 12.3 fL (9.0-12.2); MONOCYTES # (AUTO) 0.5 10^3/uL (0.0-1.0); MONOCYTES % (AUTO) 4 % (0-12); NEUTROPHILS # (AUTO) 11.1 10^3/uL (1.8-7.8); NEUTROPHILS % (AUTO) 91 % (42-75); PLATELET COUNT 189 10^3/uL (130-400); WHITE BLOOD COUNT 12.3 10^3/uL (4.3-11.0)
[2022-09-24] MEDS ORDERED: MAGNESIUM 1 GM/100 ML IVPB 100 ML IV SCH (06:00)
[2022-09-24] MEDS ORDERED: KCL 20 MEQ TAB (K-DUR) PO SCH (06:00)
[2022-09-24] MEDS ORDERED: POTASSIUM CL 10MEQ/50ML IVPB 50 ML IV SCH (06:00)
[2022-09-24 06:06] LABS: ALBUMIN 3.4 GM/DL (3.2-4.5); BILIRUBIN,TOTAL 0.3 MG/DL (0.1-1.0); CALCIUM 10.3 MG/DL (8.5-10.1); CREATININE SERUM 0.71 MG/DL (0.60-1.30); MAGNESIUM 2.2 MG/DL (1.6-2.4); PHOSPHORUS 2.4 MG/DL (2.3-4.7); POTASSIUM 4.9 MMOL/L (3.6-5.0)
[2022-09-24] MEDS: inSUlin ASPART (NovoLOG) 1 UNIT/0.01 ML (CHARGE PER UNIT) SC SCH ×4 (06:12→21:29)
[2022-09-24 06:46] LABS: ABG BASE EXCESS 6.9 MMOL/L (-2.5-2.5); ABG OXYGEN SATURATION 95 % (94-100); ABG PCO2 58 MMHG (35-45); ABG PH 7.36 (7.37-7.43); ABG PO2 68 MMHG (79-93); ABG TCO2 34.4 MMOL/L (21.0-31.0); ALLENS TEST YES-POS; INSPIRED O2 6L; PATIENT TEMP 35.6; VENTILATOR NO
--- NOTE | 2022-09-24 07:24 | Progress Note ---
Subjective Date Seen by a Provider: Sep 24, 2022 Time Seen by a Provider: 11:00 Subjective/Events-last exam Patient seems to be doing better EGD showed gastritis so maintained on Protonix Colonoscopy will be done on Monday Answered all questions Review of Systems General: Fatigue, Malaise Focused Exam Lactate Level 09/21/22 21:30: Lactic Acid Level 2.30*H 09/21/22 23:30: Lactic Acid Level 1.87 09/22/22 05:08: Lactic Acid Level 1.03 Time of Focused Exam: 23:00 Objective Exam Last Set of Vital Signs Vital Signs Date Time Temp Pulse Resp B/P (MAP) Pulse Ox O2 Delivery O2 Flow Rate FiO2 09/24/22 06:00 78 26 128/77 (94) 95 High Flow N/C 6.00 09/24/22 00:00 36.0 09/22/22 03:26 70 Capillary Refill : Less Than 3 Seconds I&O Intake and Output 09/24/22 00:00 Intake Total 1800 ml Output Total 1200 ml Balance 600 ml Intake Oral 1750 ml IV Total 50 ml Output Urine Total 1200 ml # Voids 1 # Bowel Movements 1 General: Alert, Oriented X3, Cooperative, No Acute Distress Lungs: Clear to Auscultation, Normal Air Movement Heart: Regular Rate, Normal S1, Normal S2, No Murmurs Psych/Mental Status: Mental Status NL, Mood NL Results Lab Laboratory Tests 09/23/22 15:47: Glucometer 194H 09/23/22 17:20: Hemoglobin 9.2L, Hematocrit 35 09/23/22 21:27: Glucometer 156H 09/24/22 05:19: Hemoglobin 8.8L, Hematocrit 33L, White Blood Count 12.3H, Red Blood Count 4.12, Mean Corpuscular Volume 81, Mean Corpuscular Hemoglobin 21L, Mean Corpuscular Hemoglobin Concent 26L, Red Cell Distribution Width 18.7H, Platelet Count 189, Mean Platelet Volume 12.3H, Immature Granulocyte % (Auto) 1, Neutrophils (%) (Auto) 91H, Lymphocytes (%) (Auto) 5L, Monocytes (%) (Auto) 4, Eosinophils (%) (Auto) 0, Basophils (%) (Auto) 0, Neutrophils # (Auto) 11.1H, Lymphocytes # (Auto) 0.6L, Monocytes # (Auto) 0.5, Eosinophils # (Auto) 0.0, Basophils # (Auto) 0.0, Immature Granulocyte # (Auto) 0.1, Sodium Level 140, Potassium Level 4.9, Chloride Level 104, Carbon Dioxide Level 29, Anion Gap 7, Blood Urea Nitrogen 23H, Creatinine 0.71, Estimat Glomerular Filtration Rate 95, BUN/Creatinine Ratio 32, Glucose Level 174H, Calcium Level 10.3H, Corrected Calcium 10.8H, Phosphorus Level 2.4, Magnesium Level 2.2, Total Bilirubin 0.3, Aspartate Amino Transf (AST/SGOT) 13, Alanine Aminotransferase (ALT/SGPT) 20, Alkaline Phosphatase 79, Total Protein 6.0L, Albumin 3.4 09/24/22 06:35: Blood Gas Puncture Site RR, Blood Gas Patient Temperature 35.6, Arterial Blood pH 7.36L, Arterial Blood Partial Pressure CO2 58H, Arterial Blood Partial Pressure O2 68L, Arterial Blood HCO3 33H, Arterial Blood Total CO2 34.4H, Arterial Blood Oxygen Saturation 95, Arterial Blood Base Excess 6.9H, Zenon Test YES-POS, Blood Gas Ventilator Setting NO, Blood Gas Inspired Oxygen 6L Microbiology 09/21/22 Urine Culture - Final, Complete See Comments 09/21/22 Blood Culture - Preliminary, Resulted No growth Assessment/Plan Assessment/Plan Assess & Plan/Chief Complaint Assessment: Profound acute hematochezia requiring holding of Lovenox and aspirin and transfer back to ICU PNA of R lower lobe Acute hypoxic and hypercapnic respiratory failure Sepsis Leukocytosis Lactic acidosis Cotinue oxygen supplementation with bipap. Wean to high flow nasal cannula as tolerated Continue duonebs and incentive spirometer Received dexamethasone in ED Ceftriaxone 1000mg and Azithromycin 500mg WBC up to 15.9 from 13.7 Afebrile Lactic acid down to 1.03 from 2.3 Blood pressure stable as of now with NaCl 1 L at 150mls/hr, pressor support if necessary ABG showed evidence of respiratory acidosis with compensation Negative viral panel for flu A, B and covid Pulmonary embolism D dimer elevated in ED at 0.79 CTA showed evidence of PE in R subsegmental branches of the right lower lobe pulmonary artery Lovenox 90 mg BID Elevated troponinhold aspirin due to GI bleed Elevated BNP minimal troponin elevation Cardiology consulted Likely type 2 NV secondary to hypoxia Probable UTI UA was + for bacteria and leukocyte esterase continue IV fluids and abx as above Recent COVID infection ASIA has used CPAP in the past, currently does not use DVT ppx- therapeutic dose of lovenox- Hold due to GI bleed Diet- regular CODE status- full Clinical Quality Measures Admission Status Admission Dx Assessment: BiPAP Cardiology People Manager ICU appreciated Anticoagulation SUNDEEP DELEON DO Sep 24, 2022 07:24
--- NOTE | 2022-09-24 08:49 | Diagnostic Imaging Report ---
EXAMINATION: Chest 1 view HISTORY: Short of breath COMPARISON: 09/22/2022 FINDINGS: There is a worsening right base airspace opacity. No pneumothorax. Heart is enlarged. Small pleural effusions are present. IMPRESSION: 1. Worsening right base airspace opacity favored to represent pneumonia. Dictated by: Dictated on workstation # [id number]
[2022-09-24] MEDS ORDERED: NON-FORMULARY MEDICATION 1 EA EA (Fexofenadine HCl 180 MG) PO SCH (09:00)
[2022-09-24] MEDS ORDERED: NON-FORMULARY MEDICATION 1 EA EA (L.acidoph & Paracasei,B.lactis (Probiotic) 1 EACH) PO SCH (09:00)
[2022-09-24] MEDS ORDERED: NON-FORMULARY MEDICATION 1 EA EA (Magnesium Oxide (Magnesium) 400 MG) PO SCH (09:00)
[2022-09-24] MEDS ORDERED: ASPIRIN 81 MG CHEW (CHILDREN'S ASA) PO SCH (09:00)
[2022-09-24] MEDS ORDERED: NON-FORMULARY MEDICATION 1 EA EA (Pravastatin Sodium 40 MG) PO SCH (09:00)
[2022-09-24] MEDS: GLIMEPIRIDE 2 MG (AMARYL) TAB PO SCH (09:05)
[2022-09-24] MEDS: MAGNESIUM OXIDE (MAG-OX)400 MG TAB PO SCH (09:06)
[2022-09-24] MEDS: LACTOBACILLUS ACIDOPHILUS (PROBIOTIC) CAPSULE PO SCH (09:06)
[2022-09-24] MEDS: AtorvaSTATin TABLET 10 MG TABLET PO SCH (09:07)
[2022-09-24] MEDS: VALSARTAN 80 MG (DIOVAN) TAB PO SCH (09:07)
[2022-09-24] MEDS: LORATADINE (CLARITIN) 10 MG TAB PO SCH (09:07)
[2022-09-24] MEDS: amLODIPine 5 MG (NORVASC) TAB PO SCH (09:08)
[2022-09-24] MEDS: VITAMIN D3 125 MCG (5,000 UNITS) CAPSULE PO SCH (09:08)
[2022-09-24] MEDS: VALACYCLOVIR 500 MG TAB (VALTREX) PO SCH (09:08)
[2022-09-24] MEDS: PANTOPRAZOLE 40 MG (PROTONIX) TAB PO SCH (09:08)
[2022-09-24] MEDS ORDERED: LACTATED RINGERS 1,000 ML IV ONE (09:48)
--- NOTE | 2022-09-24 10:42 | Progress Note - Surgery ---
Subjective Time Seen by a Provider: 10:04 Subjective/Events-last exam Pt seen and examined, states she has some mild increase in nausea. Nurse stated she passed "another clot" this am with BM. No trouble breathing. Review of Systems General: No Chills, No Night Sweats Pulmonary: No Dyspnea, No Cough Cardiovascular: No: Chest Pain, Palpitations Gastrointestinal: Nausea, Abdominal Pain (minimal); No: Vomiting Focused Exam Lactate Level 09/21/22 21:30: Lactic Acid Level 2.30*H 09/21/22 23:30: Lactic Acid Level 1.87 09/22/22 05:08: Lactic Acid Level 1.03 Time of Focused Exam: 23:00 Objective Exam Vital Signs Date Time Temp Pulse Resp B/P (MAP) Pulse Ox O2 Delivery O2 Flow Rate FiO2 09/24/22 10:00 66 24 134/82 (102) 93 High Flow N/C 6.00 09/24/22 09:04 36.7 09/24/22 09:00 95 High Flow N/C 6.00 09/24/22 09:00 63 34 133/78 (103) 91 High Flow N/C 6.00 09/24/22 08:00 94 High Flow N/C 8.00 09/24/22 08:00 52 25 117/72 (90) 96 High Flow N/C 6.00 09/24/22 07:00 63 09/24/22 07:00 69 16 127/76 (97) 95 High Flow N/C 6.00 09/24/22 06:00 78 26 128/77 (94) 95 High Flow N/C 6.00 09/24/22 05:00 76 18 134/79 (97) 92 High Flow N/C 6.00 09/24/22 04:00 71 24 134/86 (102) 93 High Flow N/C 6.00 09/24/22 04:00 94 High Flow N/C 6.00 09/24/22 03:00 71 14 124/73 (90) 94 High Flow N/C 6.00 09/24/22 02:49 97 High Flow N/C 6.00 09/24/22 02:48 High Flow N/C 6.00 09/24/22 02:00 75 14 124/72 (89) 97 High Flow N/C 8.00 09/24/22 01:00 81 09/24/22 01:00 80 18 146/77 (100) 93 High Flow N/C 8.00 09/24/22 00:00 78 25 141/85 (103) 94 High Flow N/C 8.00 09/24/22 00:00 36.0 High Flow N/C 8.00 09/24/22 00:00 94 High Flow N/C 8.00 09/23/22 23:00 73 19 142/86 (104) 98 High Flow N/C 10.00 09/23/22 22:00 89 19 143/90 (107) 100 High Flow N/C 10.00 09/23/22 21:00 80 17 161/86 (111) 94 High Flow N/C 10.00 09/23/22 20:20 98 High Flow N/C 7.00 09/23/22 20:16 95 98 09/23/22 20:00 82 16 141/89 (106) 100 High Flow N/C 10.00 09/23/22 19:47 97 High Flow N/C 10.00 09/23/22 19:00 94 09/23/22 19:00 93 15 135/98 (110) 98 High Flow N/C 10.00 09/23/22 18:00 81 15 144/80 (101) 97 High Flow N/C 10.00 09/23/22 17:00 96 High Flow N/C 10.00 09/23/22 17:00 87 18 124/67 (86) 96 High Flow N/C 10.00 09/23/22 16:50 89 09/23/22 15:35 36.5 97 18 119/70 (86) 93 High Flow N/C 10.00 09/23/22 14:56 97 High Flow N/C 10.00 09/23/22 12:00 36.3 09/23/22 12:00 96 High Flow N/C 10.00 09/23/22 12:00 86 141/73 (96) 95 High Flow N/C 6.00 09/23/22 11:04 80 131/77 09/23/22 11:00 85 126/82 (91) 94 High Flow N/C 6.00 09/23/22 10:53 94 High Flow N/C 10.00 I & O 09/24/22 07:00 Intake Total 1350 ml Output Total 200 ml Balance 1150 ml Capillary Refill : Less Than 3 Seconds General Appearance: No Apparent Distress, Obese HEENT: PERRL/EOMI Respiratory: Chest Non Tender, Lungs Clear, No Accessory Muscle Use, No Respiratory Distress, Decreased Breath Sounds (R base), Expiration, Wheezing Cardiovascular: Regular Rate, Rhythm, No Murmur Peripheral Pulses: 1+ Dorsalis Pedis (R), 1+ Left Dors-Pedis (L) Gastrointestinal: soft, no organomegaly, distended (mostly normal body habitus), tenderness (diffusely with deep palpation) Extremity: No Calf Tenderness, Pedal Edema (left leg) Neurologic/Psychiatric: Alert, Oriented x3 Results Lab Laboratory Tests 09/23/22 15:47: Glucometer 194H 09/23/22 17:20: Hemoglobin 9.2L, Hematocrit 35 09/23/22 21:27: Glucometer 156H 09/24/22 05:19: Hemoglobin 8.8L, Hematocrit 33L, White Blood Count 12.3H, Red Blood Count 4.12, Mean Corpuscular Volume 81, Mean Corpuscular Hemoglobin 21L, Mean Corpuscular Hemoglobin Concent 26L, Red Cell Distribution Width 18.7H, Platelet Count 189, Mean Platelet Volume 12.3H, Immature Granulocyte % (Auto) 1, Neutrophils (%) (Auto) 91H, Lymphocytes (%) (Auto) 5L, Monocytes (%) (Auto) 4, Eosinophils (%) (Auto) 0, Basophils (%) (Auto) 0, Neutrophils # (Auto) 11.1H, Lymphocytes # (Auto) 0.6L, Monocytes # (Auto) 0.5, Eosinophils # (Auto) 0.0, Basophils # (Auto) 0.0, Immature Granulocyte # (Auto) 0.1, Sodium Level 140, Potassium Level 4.9, Chloride Level 104, Carbon Dioxide Level 29, Anion Gap 7, Blood Urea Nitrogen 23H, Creatinine 0.71, Estimat Glomerular Filtration Rate 95, BUN/Creatinine Ratio 32, Glucose Level 174H, Calcium Level 10.3H, Corrected Calcium 10.8H, Phosphorus Level 2.4, Magnesium Level 2.2, Total Bilirubin 0.3, Aspartate Amino Transf (AST/SGOT) 13, Alanine Aminotransferase (ALT/SGPT) 20, Alkaline Phosphatase 79, Total Protein 6.0L, Albumin 3.4 09/24/22 06:35: Blood Gas Puncture Site RR, Blood Gas Patient Temperature 35.6, Arterial Blood pH 7.36L, Arterial Blood Partial Pressure CO2 58H, Arterial Blood Partial Pressure O2 68L, Arterial Blood HCO3 33H, Arterial Blood Total CO2 34.4H, Arterial Blood Oxygen Saturation 95, Arterial Blood Base Excess 6.9H, Zenon Test YES-POS, Blood Gas Ventilator Setting NO, Blood Gas Inspired Oxygen 6L Microbiology 09/21/22 Urine Culture - Final, Complete See Comments 09/21/22 Blood Culture - Preliminary, Resulted No growth Assessment/Plan Assessment/Plan Assessment/Plan Hematochezia Anemia - dropped from 9.2 to 8.8 PNA of R lower lobe Acute on Chronic Respiratory failure - improved Leukocytosis Pulmonary embolism Elevated troponin Elevated BNP ASIA Pulmonary Hypertension DM type II Plan today to do EGD and I talked to pt about doing a Flexible Sigmoidoscopy to at least look at first part of distal colon. She agreed to add this on to the procedure we do today. If nothing found can probably restart the blood thinners. Continue all other medications and monitor Hg. O2 as needed and RT treatments. Cardiology has signed off and Leukocytosis has improved. Continue ABX. JUAN LUIS DO Sep 24, 2022 10:42
[2022-09-24] MEDS ORDERED: proPOfol 200 MG/20 ML (DIPRIVAN) VIAL IV ONE (10:48)
--- NOTE | 2022-09-24 11:28 | Tele-ICU Progress Note ---
Subjective Date Seen by a Provider: Sep 24, 2022 Time Seen by a Provider: 11:28 Subjective/Events-last exam (Tele-ICU Physician , Progress Note ) Service provided via interactive audio and video telecommunications E-CARE system to a patient admitted to ICU bed in [facility]. Patient is seen today due to persistent need of ICU care Available chart/ vitals / labs / Images reviewed Video assessment done using teleICU camera, rest of exam as per RN Discussed with RN Events overnight : Afebrile hemodynamically stable Respiratory - ra Hospital course: (09/22) 62 Y/O Female with Jhngholui-Jrcrzeh-SP. Placed on Bipap. 09/23- rectal bleed , hb stable 09/24 - EGD ,flex sig A/P Hematochezia - hemodin stable , vitals stable - AC on hold - EGD and sigflex scheduled for today - Respiratory distress with hypoxia on adnission - RESOLVED - placed on BIPAP briefly ( abg with mild chronic Co2 retention ) - off now - multi-factorial: - PE by CT RLL subsegmental and small PNA Pneumonia ( small ) -to finish abx Pulmoary embolism - CTA 09-21-22 - subsegmental RLL ( no dvt) -Echo on 09-22-22: LVEF 55-60%, mild MR, mod TR, PASP 60-65 mmHg -AC on hold with GIB Pulm HTN - PASP 60-65 mmHg - out of proportion to PE burden , component of chronic pulm HTN - w/up - follow up latter Troponin elevation - seen by cards : - likely Type 2 SC secondary to hypoxia and sepsis and PE possible UTI - cx - NL elia - on abx for PNA already Bilat LE edema- L>R - Negative venous Doppler of the left lower extremity. DM 2 - ISS Probable COPD - quit smoking at age 48, no severe emphysema on CT - as per RN - patien tis being evaluated as outpt - cont nebs - receiced staroids 09/22 on ER IV - no wheezing , no more steroids given Lines : , (Central Line Necessity Reviewed) Dahl: OG: Nutrition: Analgesia: Anxiety/ delirium VTE Prophylaxis: quyen full dose Stress Ulcer Prophylaxis: na Plans in collaboration with bedside consultants and IM MDs. Discussed with RN to reach out if any questions or concerns Case and care daily discussed on multidisciplinary rounds ( RN, PharmD, Barrel Dedenting Machine Operator , Respiratory Therapy, pack worker ) A total of 20 minutes of critical care time was devoted to this patient today, required to treat and/or prevent further deterioration of critical care condition ( as above ) . I am remotely monitoring this patient from another state. I am unable to do the bedside exam, and history/physical and pertinent information is taken from other notes in the computer and bedside staff. Sepsis Event Evaluation Height, Weight, BMI Height: '" Weight: lbs. oz. kg; 35.62 BMI Method: Focused Exam Lactate Level 09/21/22 21:30: Lactic Acid Level 2.30*H 09/21/22 23:30: Lactic Acid Level 1.87 09/22/22 05:08: Lactic Acid Level 1.03 Time of Focused Exam: 23:00 Exam Exam Patient acknowledged, consented, and participated in this virtual visit which was conducted using real time audio/video Vital Signs Date Time Temp Pulse Resp B/P (MAP) Pulse Ox O2 Delivery O2 Flow Rate FiO2 09/24/22 11:00 90 23 138/77 (96) 94 High Flow N/C 6.00 09/24/22 10:00 66 24 134/82 (102) 93 High Flow N/C 6.00 09/24/22 09:04 36.7 09/24/22 09:00 95 High Flow N/C 6.00 09/24/22 09:00 63 34 133/78 (103) 91 High Flow N/C 6.00 09/24/22 08:00 94 High Flow N/C 8.00 09/24/22 08:00 52 25 117/72 (90) 96 High Flow N/C 6.00 09/24/22 07:00 63 09/24/22 07:00 69 16 127/76 (97) 95 High Flow N/C 6.00 09/24/22 06:00 78 26 128/77 (94) 95 High Flow N/C 6.00 09/24/22 05:00 76 18 134/79 (97) 92 High Flow N/C 6.00 09/24/22 04:00 71 24 134/86 (102) 93 High Flow N/C 6.00 09/24/22 04:00 94 High Flow N/C 6.00 09/24/22 03:00 71 14 124/73 (90) 94 High Flow N/C 6.00 09/24/22 02:49 97 High Flow N/C 6.00 09/24/22 02:48 High Flow N/C 6.00 09/24/22 02:00 75 14 124/72 (89) 97 High Flow N/C 8.00 09/24/22 01:00 81 09/24/22 01:00 80 18 146/77 (100) 93 High Flow N/C 8.00 09/24/22 00:00 78 25 141/85 (103) 94 High Flow N/C 8.00 09/24/22 00:00 36.0 High Flow N/C 8.00 09/24/22 00:00 94 High Flow N/C 8.00 09/23/22 23:00 73 19 142/86 (104) 98 High Flow N/C 10.00 09/23/22 22:00 89 19 143/90 (107) 100 High Flow N/C 10.00 09/23/22 21:00 80 17 161/86 (111) 94 High Flow N/C 10.00 09/23/22 20:20 98 High Flow N/C 7.00 09/23/22 20:16 95 98 09/23/22 20:00 82 16 141/89 (106) 100 High Flow N/C 10.00 09/23/22 19:47 97 High Flow N/C 10.00 09/23/22 19:00 94 09/23/22 19:00 93 15 135/98 (110) 98 High Flow N/C 10.00 09/23/22 18:00 81 15 144/80 (101) 97 High Flow N/C 10.00 09/23/22 17:00 96 High Flow N/C 10.00 09/23/22 17:00 87 18 124/67 (86) 96 High Flow N/C 10.00 09/23/22 16:50 89 09/23/22 15:35 36.5 97 18 119/70 (86) 93 High Flow N/C 10.00 09/23/22 14:56 97 High Flow N/C 10.00 09/23/22 12:00 36.3 09/23/22 12:00 96 High Flow N/C 10.00 09/23/22 12:00 86 141/73 (96) 95 High Flow N/C 6.00 I & O 09/24/22 07:00 Intake Total 1350 ml Output Total 200 ml Balance 1150 ml Height & Weight Height: '" Weight: lbs. oz. kg; 35.62 BMI Method: General Appearance: No Apparent Distress, Obese HEENT: PERRL/EOMI Respiratory: Chest Non Tender, Lungs Clear, No Accessory Muscle Use, No Respiratory Distress, Decreased Breath Sounds (R base), Expiration, Wheezing Cardiovascular: Regular Rate, Rhythm, No Murmur Capillary Refill: Less Than 3 Seconds Peripheral Pulses: 1+ Dorsalis Pedis (R), 1+ Left Dors-Pedis (L) Gastrointestinal: soft, no organomegaly, distended (mostly normal body habitus), tenderness (diffusely with deep palpation) Extremity: No Calf Tenderness, Pedal Edema (left leg) Neurologic/Psychiatric: Alert, Oriented x3 Results Lab Laboratory Tests 09/23/22 05:40 09/23/22 17:20 09/24/22 05:19 Assessment/Plan Assessment/Plan 1 HOMER BUCIO MD Sep 24, 2022 11:28
[2022-09-24] MEDS ORDERED: LACTATED RINGERS 1,000 ML IV STA (11:57)
[2022-09-24] MEDS ORDERED: HURRICAINE EXT TUBE (BENZOCAINE) XX PRN (12:00)
--- NOTE | 2022-09-24 12:49 | Anesthesia-General Post-Op ---
MAC Patient Condition Mental Status/LOC: Same as Preop Cardiovascular: Satisfactory Nausea/Vomiting: Absent Respiratory: Satisfactory Pain: Controlled Complications: Absent Post Op Complications Complications None Follow Up Care/Instructions Patient Instructions None needed. Anesthesiology Discharge Order Discharge Order Patient is doing well, no complaints, stable vital signs, no apparent adverse anesthesia problems. No complications reported per nursing. FRANCESCA RODRIGUEZ CRNA Sep 24, 2022 12:49
[2022-09-24 16:00] VITALS: BP 147/93
--- NOTE | 2022-09-24 16:05 | Progress Note-Post Operative ---
Post-Operative Progess Note Surgeon (s)/Produce Assistant (s) Surgeon JUAN LUIS DO Produce Assistant: none Pre-Operative Diagnosis Hematochezia, Abd pain Post-Operative Diagnosis Gastritis Hiatal hernia Hematochezia Procedure & Operative Findings Date of Procedure 09/24/22 Procedure Performed/Findings EGD Flexible Sigmoidoscopy PROCEDURE NOTE: After informed consent was obtained, the patient was in her bed in the ICU, placed in bed in left lateral decubitus position. She was administered IV sedation by the TUNA PURSE SEINER who then monitored vitals the entire time, heart rate, blood pressure and pulse ox and the scope was inserted down the mouththrough the esophagus into the stomach. On the way down did not really see any esophagitis, took a picture of the GE junction. Then pushed into the stomach and noted moderate gastritis in streaks and took a picture. Next, pushed past the antrum into the duodenum; duodenum appeared to have some mild inflammation also (took picture). Pulled back, then retroflexed the scope and saw a small grade II AFS hiatal hernia; took a picture of this. I elected not to do any biopsies because she had been on Lovenox. I did not see any signs of active or recent bleeding. Finally, suctioned all the air out of the stomach and at this point pulled the scope up the esophagus and out the mouth. Next, I went down below to start the flexible Sigmoidoscopy. Immediately upon entering found large clots of blood and fecal material covered with blood. It was foul smelling, like a GI bleed. Attempted to push in more, but only able to go about 15 cm; too much retained stool and blood to safely go further. I took pictures of this, also noted some internal and external hemorrhoids. However, I could not see a source of bleeding. The mucosa in the rectum (at least what I could see by flushing some of the clots away) did not appear to be inflamed or have any ulcerations. At this point I elected to remove the scope and will plan on prepping patient for full colonoscopy on Monday. The patient tolerated the procedure and she recovered in the endoscopy suite. Recommended for repeat colonoscopy Monday. Anesthesia Type IV sedation by TUNA PURSE SEINER Estimated Blood Loss Estimated blood loss (mL): none from the procedure Specimens/Packing Specimens Removed none JUAN LUIS DO Sep 24, 2022 16:05
--- NOTE | 2022-09-24 17:08 | Progress Note - Cardiology ---
Cardiology SOAP Progress Note Subjective: Reports improving shortness of breath No cp or palp or syncope No n/v/d Gen weakness No focal weakness Objective: I&O/Vital Signs 09/24/22 09/24/22 09/24/22 09/24/22 06:00 07:00 07:00 08:00 Pulse 78 69 63 52 Resp 26 16 25 B/P (MAP) 128/77 (94) 127/76 (97) 117/72 (90) Pulse Ox 95 95 96 O2 Delivery High Flow N/C High Flow N/C High Flow N/C O2 Flow Rate 6.00 6.00 6.00 09/24/22 09/24/22 09/24/22 09/24/22 08:00 08:00 09:00 09:00 Pulse 63 Resp 34 B/P (MAP) 133/78 (103) Pulse Ox 94 94 91 95 O2 Delivery High Flow N/C High Flow N/C High Flow N/C High Flow N/C O2 Flow Rate 8.00 6.00 6.00 6.00 09/24/22 09/24/22 09/24/22 09/24/22 09:04 10:00 11:00 11:28 Temp 36.7 Pulse 66 90 Resp 24 23 B/P (MAP) 134/82 (102) 138/77 (96) Pulse Ox 93 94 O2 Delivery High Flow N/C High Flow N/C High Flow N/C O2 Flow Rate 6.00 6.00 8.00 09/24/22 09/24/22 09/24/22 09/24/22 12:00 12:00 12:45 16:00 Temp 36.6 Pulse 60 67 Resp 22 16 B/P (MAP) 143/99 (113) 147/93 (111) Pulse Ox 94 93 93 O2 Delivery High Flow N/C High Flow N/C O2 Flow Rate 8.00 8.00 6.00 09/24/22 16:03 Pulse 71 09/24/22 00:00 Intake Total 550 ml Balance 550 ml Constitutional: AAO x 3, well-developed, well-nourished Respiratory: No accessory muscle use, No respiratory distress; chest expansion is symmetric, chest is bilaterally symmetric, other (coarse breath sounds lower lobes bilat) Cardiovascular: regular rate-rhythm; No JVD; S1 and S2 Gastrointestional: soft, round; No guarding; audible bowel sounds Extremities: other (mild to mod bilat LE swelling) Neurologic/Psychiatric: other (moves all extremities) Skin: normal color, warm/dry; No rash on exposed areas, No ulcerations on exposed areas Results/Procedures: Labs Laboratory Tests 09/23/22 17:20: Hemoglobin 9.2L, Hematocrit 35 09/23/22 21:27: Glucometer 156H 09/24/22 05:19: Hemoglobin 8.8L, Hematocrit 33L, White Blood Count 12.3H, Red Blood Count 4.12, Mean Corpuscular Volume 81, Mean Corpuscular Hemoglobin 21L, Mean Corpuscular Hemoglobin Concent 26L, Red Cell Distribution Width 18.7H, Platelet Count 189, Mean Platelet Volume 12.3H, Immature Granulocyte % (Auto) 1, Neutrophils (%) (Auto) 91H, Lymphocytes (%) (Auto) 5L, Monocytes (%) (Auto) 4, Eosinophils (%) (Auto) 0, Basophils (%) (Auto) 0, Neutrophils # (Auto) 11.1H, Lymphocytes # (Auto) 0.6L, Monocytes # (Auto) 0.5, Eosinophils # (Auto) 0.0, Basophils # (Auto) 0.0, Immature Granulocyte # (Auto) 0.1, Sodium Level 140, Potassium Level 4.9, Chloride Level 104, Carbon Dioxide Level 29, Anion Gap 7, Blood Urea Nitrogen 23H, Creatinine 0.71, Estimat Glomerular Filtration Rate 95, BUN/Creatinine Ratio 32, Glucose Level 174H, Calcium Level 10.3H, Corrected Calcium 10.8H, Phosphorus Level 2.4, Magnesium Level 2.2, Total Bilirubin 0.3, Aspartate Amino Transf (AST/SGOT) 13, Alanine Aminotransferase (ALT/SGPT) 20, Alkaline Phosphatase 79, Total Protein 6.0L, Albumin 3.4 09/24/22 06:35: Blood Gas Puncture Site RR, Blood Gas Patient Temperature 35.6, Arterial Blood pH 7.36L, Arterial Blood Partial Pressure CO2 58H, Arterial Blood Partial Pressure O2 68L, Arterial Blood HCO3 33H, Arterial Blood Total CO2 34.4H, Arterial Blood Oxygen Saturation 95, Arterial Blood Base Excess 6.9H, Zenon Test YES-POS, Blood Gas Ventilator Setting NO, Blood Gas Inspired Oxygen 6L 09/24/22 10:41: Glucometer 135H 09/24/22 16:07: Glucometer 189H Microbiology 09/21/22 Urine Culture - Final, Complete See Comments 09/21/22 Blood Culture - Preliminary, Resulted No growth Laboratory Tests 09/23/22 05:40 09/23/22 17:20 09/24/22 05:19 A/P: Assessment: Respiratory distress with hypoxia - multi-factorial Pneumonia with sepsis - management per medical/eICU services ?UTI - management per medical services Pulmoary embolism - CTA of the chest on 09-21-22: CT angiographic findings are consistent with pulmonary embolism with nonocclusive thrombus in subsegmental branches of the right lower lobe pulmonary artery - Echo on 09-22-22: LVEF 55-60%, mild MR, mod TR, PASP 60-65 mmHg Minimal troponin elevation - likely Type 2 AK secondary to hypoxia and sepsis - Reports h/o cardiac cath in [place] in 2021 d/t elevated calcium score (550), reports it only showed mild plaque (35%) New onset bilat LE swelling - L>R HTN - multi-drug regimen (Norvasc, Valsartan, HCTA) HLD - Pravastatin at home DM 2 Probable COPD - quit smoking at age 48 Recent abdominal pain with poor intake - management per medical services H/o shanti francisco Plan: * Continue anticoag for PE * Medical svce managing pneumonia/sepsis * Monitor labs * I discussed her CV issues with her and answered questions STAN ANTONY MD FACP FAC CCDS Sep 24, 2022 17:08
[2022-09-24] MEDS: cefTRIAXone IV/IM 1,000 MG in NS (IVPB) 50 ML IV SCH (21:09)
[2022-09-24] MEDS: AZITHROMYCIN 250 MG TAB (ZITHROMAX) PO SCH (21:09)
[2022-09-24] MEDS: MONTELUKAST 10 MG (SINGULAIR) TAB PO SCH (21:09)
[2022-09-25 05:54] LABS: EOSINOPHILS % (AUTO) 0 % (0-10); HEMOGLOBIN 9.2 g/dL (11.5-16.0)
[2022-09-25 05:55] LABS: BASOPHILS % (AUTO) 0 % (0-10); HEMATOCRIT 35 % (35-52); LYMPHOCYTES # (AUTO) 0.8 10^3/uL (1.0-4.0); LYMPHOCYTES % (AUTO) 9 % (12-44); MEAN CORPUSCULAR HEMOGLOBIN 21 pg (25-34); MEAN CORPUSCULAR HGB CONC 26 g/dL (32-36); MEAN CORPUSCULAR VOLUME 80 fL (80-99); MONOCYTES # (AUTO) 0.5 10^3/uL (0.0-1.0); MONOCYTES % (AUTO) 5 % (0-12); NEUTROPHILS # (AUTO) 8.2 10^3/uL (1.8-7.8); NEUTROPHILS % (AUTO) 86 % (42-75); PLATELET COUNT 143 10^3/uL (130-400); WHITE BLOOD COUNT 9.6 10^3/uL (4.3-11.0)
[2022-09-25 06:08] LABS: ALBUMIN 3.3 GM/DL (3.2-4.5); POTASSIUM 5.3 MMOL/L (3.6-5.0)
[2022-09-25 06:09] LABS: CALCIUM 10.6 MG/DL (8.5-10.1)
[2022-09-25 06:10] LABS: TOTAL PROTEIN 6.2 GM/DL (6.4-8.2)
[2022-09-25 06:12] LABS: BILIRUBIN,TOTAL 0.2 MG/DL (0.1-1.0)
[2022-09-25 06:14] LABS: CREATININE SERUM 0.7 MG/DL (0.60-1.30)
[2022-09-25] MEDS: inSUlin ASPART (NovoLOG) 1 UNIT/0.01 ML (CHARGE PER UNIT) SC SCH ×4 (06:20→21:12)
--- NOTE | 2022-09-25 07:20 | Progress Note ---
Subjective Date Seen by a Provider: Sep 25, 2022 Time Seen by a Provider: 11:00 Subjective/Events-last exam Patient doing a lot better We will move to fourth floor Hemoglobin stable at 9.2 Off of Lovenox and aspirin Colonoscopy possible tomorrow Review of Systems General: Fatigue, Malaise Focused Exam Time of Focused Exam: 23:00 Objective Exam Last Set of Vital Signs Vital Signs Date Time Temp Pulse Resp B/P (MAP) Pulse Ox O2 Delivery O2 Flow Rate FiO2 09/25/22 06:50 High Flow N/C 4.00 09/25/22 04:00 59 14 135/92 (106) 96 09/24/22 16:00 36.6 09/22/22 03:26 70 Capillary Refill : Less Than 3 Seconds I&O Intake and Output0 09/25/22 00:00 Intake Total 1600 ml Balance 1600 ml Intake Oral 1250 ml IV Total 350 ml # Voids 6 # Bowel Movements 2 General: Alert, Oriented X3, Cooperative, No Acute Distress Lungs: Clear to Auscultation, Normal Air Movement Heart: Regular Rate, Normal S1, Normal S2, No Murmurs Psych/Mental Status: Mental Status NL, Mood NL Results Lab Laboratory Tests 09/24/22 10:41: Glucometer 135H 09/24/22 16:07: Glucometer 189H 09/24/22 21:15: Glucometer 135H 09/25/22 05:36: White Blood Count 9.6, Red Blood Count 4.33, Hemoglobin 9.2L, Hematocrit 35, Mean Corpuscular Volume 80, Mean Corpuscular Hemoglobin 21L, Mean Corpuscular Hemoglobin Concent 26L, Red Cell Distribution Width 18.6H, Platelet Count 143, Mean Platelet Volume , Immature Granulocyte % (Auto) 1, Neutrophils (%) (Auto) 86H, Lymphocytes (%) (Auto) 9L, Monocytes (%) (Auto) 5, Eosinophils (%) (Auto) 0, Basophils (%) (Auto) 0, Neutrophils # (Auto) 8.2H, Lymphocytes # (Auto) 0.8L, Monocytes # (Auto) 0.5, Eosinophils # (Auto) 0.0, Basophils # (Auto) 0.0, Immature Granulocyte # (Auto) 0.1, Percent Immature Platelet Fraction 15.5H, Sodium Level 138, Potassium Level 5.3H, Chloride Level 104, Carbon Dioxide Level 26, Anion Gap 8, Blood Urea Nitrogen 24H, Creatinine 0.70, Estimat Glomerular Filtration Rate 97, BUN/Creatinine Ratio 34, Glucose Level 176H, Calcium Level 10.6H, Corrected Calcium 11.2H, Total Bilirubin 0.2, Aspartate Amino Transf (AST/SGOT) 30, Alanine Aminotransferase (ALT/SGPT) 22, Alkaline Phosphatase 69, Total Protein 6.2L, Albumin 3.3 Microbiology 09/21/22 Urine Culture - Final, Complete See Comments 09/21/22 Blood Culture - Preliminary, Resulted No growth Assessment/Plan Assessment/Plan Assess & Plan/Chief Complaint Assessment: Profound acute hematochezia requiring holding of Lovenox and aspirin and transfer back to ICU Assessment: PNA of R lower lobe Acute hypoxic and hypercapnic respiratory failure Sepsis Leukocytosis Lactic acidosis Cotinue oxygen supplementation with bipap. Wean to high flow nasal cannula as tolerated Continue duonebs and incentive spirometer Received dexamethasone in ED Ceftriaxone 1000mg and Azithromycin 500mg WBC up to 15.9 from 13.7 Afebrile Lactic acid down to 1.03 from 2.3 Blood pressure stable as of now with NaCl 1 L at 150mls/hr, pressor support if necessary ABG showed evidence of respiratory acidosis with compensation Negative viral panel for flu A, B and covid Pulmonary embolism D dimer elevated in ED at 0.79 CTA showed evidence of PE in R subsegmental branches of the right lower lobe pulmonary artery Lovenox 90 mg BID-on hold due to GIB Elevated troponinhold aspirin due to GI bleed Elevated BNP minimal troponin elevation Cardiology consulted Likely type 2 AK secondary to hypoxia Probable UTI UA was + for bacteria and leukocyte esterase continue IV fluids and abx as above Recent COVID infection ASIA has used CPAP in the past, currently does not use DVT ppx- therapeutic dose of lovenox- Hold due to GI bleed Diet- regular CODE status- full Clinical Quality Measures Admission Status Admission Dx Assessment: BiPAP Cardiology Carriage Operator ICU appreciated Anticoagulation DVT/VTE Risk/Contraindication: Contraindications-Pharm: Other *list below* Other: SUNDEEP MUNGUIA DO Sep 25, 2022 07:20
--- NOTE | 2022-09-25 09:03 | Tele-ICU Progress Note ---
Progress Note video rounds completed 62 y/o male admitted with PNA and developed BRBPR UGI endosciopy with esophagitis and HH Hgb stable: today: 9.2 PE: appears comfortable sitting in bed on cell phone VSS IMP" PNA on antibiotics BRBPR: likely UGI bleed have not r/o colonic source. Hgb stable Time spent 15 min Focused Exam Height, Weight, BMI Height: '" Weight: lbs. oz. kg; 38.76 BMI Method: Time of Focused Exam: 23:00 Labs Laboratory Tests 09/25/22 05:36 Results Results/Procedures Labs Laboratory Tests 09/23/22 17:20 09/24/22 05:19 09/25/22 05:36 Patient resulted labs reviewed. Results Labs Labs Laboratory Tests 09/24/22 10:41: Glucometer 135H 09/24/22 16:07: Glucometer 189H 09/24/22 21:15: Glucometer 135H 09/25/22 05:36: White Blood Count 9.6, Red Blood Count 4.33, Hemoglobin 9.2L, Hematocrit 35, Mean Corpuscular Volume 80, Mean Corpuscular Hemoglobin 21L, Mean Corpuscular Hemoglobin Concent 26L, Red Cell Distribution Width 18.6H, Platelet Count 143, Mean Platelet Volume , Immature Granulocyte % (Auto) 1, Neutrophils (%) (Auto) 86H, Lymphocytes (%) (Auto) 9L, Monocytes (%) (Auto) 5, Eosinophils (%) (Auto) 0, Basophils (%) (Auto) 0, Neutrophils # (Auto) 8.2H, Lymphocytes # (Auto) 0.8L, Monocytes # (Auto) 0.5, Eosinophils # (Auto) 0.0, Basophils # (Auto) 0.0, Immature Granulocyte # (Auto) 0.1, Percent Immature Platelet Fraction 15.5H, Sodium Level 138, Potassium Level 5.3H, Chloride Level 104, Carbon Dioxide Level 26, Anion Gap 8, Blood Urea Nitrogen 24H, Creatinine 0.70, Estimat Glomerular Filtration Rate 97, BUN/Creatinine Ratio 34, Glucose Level 176H, Calcium Level 10.6H, Corrected Calcium 11.2H, Total Bilirubin 0.2, Aspartate Amino Transf (AST/SGOT) 30, Alanine Aminotransferase (ALT/SGPT) 22, Alkaline Phosphatase 69, Total Protein 6.2L, Albumin 3.3 Microbiology 09/21/22 Urine Culture - Final, Complete See Comments 09/21/22 Blood Culture - Preliminary, Resulted No growth LISSY DIANA MD Sep 25, 2022 09:03
--- NOTE | 2022-09-25 09:08 | Tele-ICU Progress Note ---
Progress Note video rounds completed Tele-ICU Physician , Progress Note Available chart/ vitals / labs / Images reviewed Video assessment done using tele ICU camera, rest of exam as per RN Discussed with RN Events overnight : Afebrile hemodynamically stable sitting up in bed comfortable No CP Hospital course: (09/22) 62 Y/O Female with [id number]-ON. Placed on Bipap. 09/23- rectal bleed , hb stable 09/24 - EGD ,flex sig A/P Hematochezia - hemodin stable , vitals stable - AC on hold - EGD and sigflex scheduled for today - Respiratory distress with hypoxia on adnission - RESOLVED - placed on BIPAP briefly ( abg with mild chronic Co2 retention ) - off now - multi-factorial: - PE by CT RLL subsegmental and small PNA Pneumonia ( small ) -to finish abx Pulmoary embolism - CTA 09-21-22 - subsegmental RLL ( no dvt) -Echo on 09-22-22: LVEF 55-60%, mild MR, mod TR, PASP 60-65 mmHg -AC on hold with GIB Pulm HTN - PASP 60-65 mmHg - out of proportion to PE burden , component of chronic pulm HTN - w/up - follow up latter Troponin elevation - seen by cards : - likely Type 2 HI secondary to hypoxia and sepsis and PE Bilat LE edema- L>R - Negative venous Doppler of the left lower extremity. DM 2 - ISS Probable COPD - quit smoking at age 48, no severe emphysema on CT - as per RN - patien tis being evaluated as outpt - cont nebs - receiced staroids 09/22 on ER IV - no wheezing , no more steroids given Lines : , (Central Line Necessity Reviewed) Dahl: OG: Nutrition: Analgesia: Anxiety/ delirium VTE Prophylaxis: quyen full dose Stress Ulcer Prophylaxis: na Plans in collaboration with bedside consultants and IM MDs. Discussed with RN to reach out if any questions or concerns Case and care daily discussed on multidisciplinary rounds ( RN, PharmD, Radio Station Audio Engineer , Respiratory Therapy, grab jack worker ) A total of 20 minutes of critical care time was devoted to this patient today, required to treat and/or prevent further deterioration of critical care condition ( as above ) . I am remotely monitoring this patient from another state. I am unable to do the bedside exam, and history/physical and pertinent information is taken from other notes in the computer and bedside staff. Sepsis Event Evaluation Height, Weight, BMI Height: '" Weight: lbs. oz. kg; 35.62 BMI Method: Focused Exam Lactate Level 09/21/22 21:30: Lactic Acid Level 2.30*H 09/21/22 23:30: Lactic Acid Level 1.87 09/22/22 05:08: Lactic Acid Level 1.03 Time of Focused Exam: 23:00 Exam Exam Patient acknowledged, consented, and participated in this virtual visit which was conducted using real time audio/video Vital Signs Date Time Temp Pulse Resp B/P (MAP) Pulse Ox O2 Delivery O2 Flow Rate FiO2 09/24/22 11:00 90 23 138/77 (96) 94 High Flow N/C 6.00 09/24/22 10:00 66 24 134/82 (102) 93 High Flow N/C 6.00 09/24/22 09:04 36.7 09/24/22 09:00 95 High Flow N/C 6.00 09/24/22 09:00 63 34 133/78 (103) 91 High Flow N/C 6.00 09/24/22 08:00 94 High Flow N/C 8.00 09/24/22 08:00 52 25 117/72 (90) 96 High Flow N/C 6.00 09/24/22 07:00 63 09/24/22 07:00 69 16 127/76 (97) 95 High Flow N/C 6.00 09/24/22 06:00 78 26 128/77 (94) 95 High Flow N/C 6.00 09/24/22 05:00 76 18 134/79 (97) 92 High Flow N/C 6.00 09/24/22 04:00 71 24 134/86 (102) 93 High Flow N/C 6.00 09/24/22 04:00 94 High Flow N/C 6.00 09/24/22 03:00 71 14 124/73 (90) 94 High Flow N/C 6.00 09/24/22 02:49 97 High Flow N/C 6.00 09/24/22 02:48 High Flow N/C 6.00 09/24/22 02:00 75 14 124/72 (89) 97 High Flow N/C 8.00 09/24/22 01:00 81 09/24/22 01:00 80 18 146/77 (100) 93 High Flow N/C 8.00 09/24/22 00:00 78 25 141/85 (103) 94 High Flow N/C 8.00 09/24/22 00:00 36.0 High Flow N/C 8.00 09/24/22 00:00 94 High Flow N/C 8.00 09/23/22 23:00 73 19 142/86 (104) 98 High Flow N/C 10.00 09/23/22 22:00 89 19 143/90 (107) 100 High Flow N/C 10.00 09/23/22 21:00 80 17 161/86 (111) 94 High Flow N/C 10.00 09/23/22 20:20 98 High Flow N/C 7.00 09/23/22 20:16 95 98 09/23/22 20:00 82 16 141/89 (106) 100 High Flow N/C 10.00 09/23/22 19:47 97 High Flow N/C 10.00 09/23/22 19:00 94 09/23/22 19:00 93 15 135/98 (110) 98 High Flow N/C 10.00 09/23/22 18:00 81 15 144/80 (101) 97 High Flow N/C 10.00 09/23/22 17:00 96 High Flow N/C 10.00 09/23/22 17:00 87 18 124/67 (86) 96 High Flow N/C 10.00 09/23/22 16:50 89 09/23/22 15:35 36.5 97 18 119/70 (86) 93 High Flow N/C 10.00 09/23/22 14:56 97 High Flow N/C 10.00 09/23/22 12:00 36.3 09/23/22 12:00 96 High Flow N/C 10.00 09/23/22 12:00 86 141/73 (96) 95 High Flow N/C 6.00 I & O 09/24/22 07:00 Intake Total 1350 ml Output Total 200 ml Balance 1150 ml Height & Weight Height: '" Weight: lbs. oz. kg; 35.62 BMI Method: General Appearance: No Apparent Distress, Obese HEENT: PERRL/EOMI Respiratory: Chest Non Tender, Lungs Clear, No Accessory Muscle Use, No Respiratory Distress, Decreased Breath Sounds (R base), Expiration, Wheezing Cardiovascular: Regular Rate, Rhythm, No Murmur Capillary Refill: Less Than 3 Seconds Peripheral Pulses: 1+ Dorsalis Pedis (R), 1+ Left Dors-Pedis (L) Gastrointestinal: soft, no organomegaly, distended (mostly normal body habitus), tenderness (diffusely with deep palpation) Extremity: No Calf Tenderness, Pedal Edema (left leg) Neurologic/Psychiatric: Alert, Oriented x3 Results Lab Laboratory Test 1 Focused Exam Height, Weight, BMI Height: '" Weight: lbs. oz. kg; 38.76 BMI Method: Time of Focused Exam: 23:00 Labs Laboratory Tests 09/25/22 05:36 Results Results/Procedures Labs Laboratory Tests 09/23/22 17:20 09/24/22 05:19 09/25/22 05:36 Patient resulted labs reviewed. Results Labs Labs Laboratory Tests 09/24/22 10:41: Glucometer 135H 09/24/22 16:07: Glucometer 189H 09/24/22 21:15: Glucometer 135H 09/25/22 05:36: White Blood Count 9.6, Red Blood Count 4.33, Hemoglobin 9.2L, Hematocrit 35, Mean Corpuscular Volume 80, Mean Corpuscular Hemoglobin 21L, Mean Corpuscular Hemoglobin Concent 26L, Red Cell Distribution Width 18.6H, Platelet Count 143, Mean Platelet Volume , Immature Granulocyte % (Auto) 1, Neutrophils (%) (Auto) 86H, Lymphocytes (%) (Auto) 9L, Monocytes (%) (Auto) 5, Eosinophils (%) (Auto) 0, Basophils (%) (Auto) 0, Neutrophils # (Auto) 8.2H, Lymphocytes # (Auto) 0.8L, Monocytes # (Auto) 0.5, Eosinophils # (Auto) 0.0, Basophils # (Auto) 0.0, Immature Granulocyte # (Auto) 0.1, Percent Immature Platelet Fraction 15.5H, Sodium Level 138, Potassium Level 5.3H, Chloride Level 104, Carbon Dioxide Level 26, Anion Gap 8, Blood Urea Nitrogen 24H, Creatinine 0.70, Estimat Glomerular Filtration Rate 97, BUN/Creatinine Ratio 34, Glucose Level 176H, Calcium Level 10.6H, Corrected Calcium 11.2H, Total Bilirubin 0.2, Aspartate Amino Transf (AST/SGOT) 30, Alanine Aminotransferase (ALT/SGPT) 22, Alkaline Phosphatase 69, Total Protein 6.2L, Albumin 3.3 Microbiology 09/21/22 Urine Culture - Final, Complete See Comments 09/21/22 Blood Culture - Preliminary, Resulted No growth LISSY DIANA MD Sep 25, 2022 09:08
[2022-09-25] MEDS: GLIMEPIRIDE 2 MG (AMARYL) TAB PO SCH (09:13)
[2022-09-25] MEDS: AtorvaSTATin TABLET 10 MG TABLET PO SCH (09:14)
[2022-09-25] MEDS: LACTOBACILLUS ACIDOPHILUS (PROBIOTIC) CAPSULE PO SCH (09:14)
[2022-09-25] MEDS: VALSARTAN 80 MG (DIOVAN) TAB PO SCH (09:14)
[2022-09-25] MEDS: VITAMIN D3 125 MCG (5,000 UNITS) CAPSULE PO SCH (09:15)
[2022-09-25] MEDS: amLODIPine 5 MG (NORVASC) TAB PO SCH (09:15)
[2022-09-25] MEDS: PANTOPRAZOLE 40 MG (PROTONIX) TAB PO SCH (09:15)
[2022-09-25] MEDS: MAGNESIUM OXIDE (MAG-OX)400 MG TAB PO SCH (09:17)
[2022-09-25] MEDS: LORATADINE (CLARITIN) 10 MG TAB PO SCH (09:17)
[2022-09-25] MEDS: VALACYCLOVIR 500 MG TAB (VALTREX) PO SCH (09:49)
--- NOTE | 2022-09-25 11:19 | Progress Note - Surgery ---
TABITHA KIRBY 09/25/22 1119: Subjective Date Seen by a Provider: Sep 25, 2022 Time Seen by a Provider: 10:32 Subjective/Events-last exam Patient is seen this morning in her room. She is in good spirits and questions while she is still here because she says that she feels great. She says that she is not having any abdominal pain and thinks the swelling in her leg has decreased from the day prior. She says that she is getting up and going to the bathroom on her own at this point. She says that she still had blood in her stool when she had a bowel movement last night. She denies fever, chills, palpitations or shortness of breath. Her WBC has improved from 12.3 to 9.6 today. Review of Systems General: No Chills, No Night Sweats, No Fatigue HEENT: No Head Aches, No Eye Pain Pulmonary: No Dyspnea, No Cough Cardiovascular: No: Chest Pain, Palpitations Gastrointestinal: Melena, Hematochezia; No: Nausea, Vomiting, Abdominal Pain, Diarrhea, Constipation Genitourinary: No Dysuria, No Frequency Musculoskeletal: No: neck pain, shoulder pain Neurological: No: Numbness, Change in speech Focused Exam Time of Focused Exam: 23:00 Objective Exam Vital Signs Date Time Temp Pulse Resp B/P (MAP) Pulse Ox O2 Delivery O2 Flow Rate FiO2 09/25/22 08:00 94 High Flow N/C 8.00 09/25/22 07:59 35.8 65 15 142/91 (108) 94 Nasal Cannula 4.00 09/25/22 07:00 58 09/25/22 06:50 High Flow N/C 4.00 09/25/22 04:00 59 14 135/92 (106) 96 High Flow N/C 6.00 09/25/22 01:37 64 09/24/22 23:25 63 15 143/84 (103) 96 High Flow N/C 6.00 09/24/22 20:00 96 High Flow N/C 6.00 09/24/22 20:00 78 23 149/90 (109) 94 High Flow N/C 6.00 09/24/22 19:05 High Flow N/C 6.00 09/24/22 19:00 81 09/24/22 16:03 71 09/24/22 16:00 36.6 16 147/93 (111) 93 6.00 09/24/22 12:45 67 09/24/22 12:00 60 22 143/99 (113) 93 High Flow N/C 8.00 09/24/22 12:00 94 High Flow N/C 8.00 09/24/22 11:28 High Flow N/C 8.00 I & O 09/25/22 07:00 Intake Total 1700 ml Balance 1700 ml Capillary Refill : Less Than 3 Seconds General Appearance: No Apparent Distress, Obese HEENT: PERRL/EOMI Respiratory: Chest Non Tender, Lungs Clear, No Accessory Muscle Use, No Respiratory Distress, Decreased Breath Sounds (right lower base), Expiration, Wheezing Cardiovascular: Regular Rate, Rhythm, No Murmur Peripheral Pulses: 1+ Dorsalis Pedis (R), 1+ Left Dors-Pedis (L) Gastrointestinal: soft, no organomegaly, distended (mostly normal body habitus) Extremity: No Calf Tenderness, Pedal Edema (1+ left leg) Neurologic/Psychiatric: Alert, Oriented x3 Results Lab Laboratory Tests 09/24/22 16:07: Glucometer 189H 09/24/22 21:15: Glucometer 135H 09/25/22 05:36: White Blood Count 9.6, Red Blood Count 4.33, Hemoglobin 9.2L, Hematocrit 35, Mean Corpuscular Volume 80, Mean Corpuscular Hemoglobin 21L, Mean Corpuscular Hemoglobin Concent 26L, Red Cell Distribution Width 18.6H, Platelet Count 143, Mean Platelet Volume , Immature Granulocyte % (Auto) 1, Neutrophils (%) (Auto) 86H, Lymphocytes (%) (Auto) 9L, Monocytes (%) (Auto) 5, Eosinophils (%) (Auto) 0, Basophils (%) (Auto) 0, Neutrophils # (Auto) 8.2H, Lymphocytes # (Auto) 0.8L, Monocytes # (Auto) 0.5, Eosinophils # (Auto) 0.0, Basophils # (Auto) 0.0, Immature Granulocyte # (Auto) 0.1, Percent Immature Platelet Fraction 15.5H, Sodium Level 138, Potassium Level 5.3H, Chloride Level 104, Carbon Dioxide Level 26, Anion Gap 8, Blood Urea Nitrogen 24H, Creatinine 0.70, Estimat Glomerular Filtration Rate 97, BUN/Creatinine Ratio 34, Glucose Level 176H, Calcium Level 10.6H, Corrected Calcium 11.2H, Total Bilirubin 0.2, Aspartate Amino Transf (AST/SGOT) 30, Alanine Aminotransferase (ALT/SGPT) 22, Alkaline Phosphatase 69, Total Protein 6.2L, Albumin 3.3 09/25/22 10:29: Glucometer 160H Microbiology 09/21/22 Urine Culture - Final, Complete See Comments 09/21/22 Blood Culture - Preliminary, Resulted No growth Assessment/Plan Assessment/Plan Assessment/Plan Hematochezia Anemia - 8.8 day prior to 9.2 today PNA of R lower lobe Acute on Chronic Respiratory failure - improved Leukocytosis Pulmonary embolism Elevated troponin Elevated BNP ASIA Pulmonary Hypertension DM type II Patient had an EGD the day prior that showed gastritis and well as a failed cholonoscopy due to no prep, was only able to reach the rectal vault. Will get her prepped and scheduled, she is not against being prepped in the hospital and doing a cholonoscopy tomorrow if she can get to a normal room on the 4th floor she says. She is doing well overall. Plan is to continue ABX to help with pneumonia and try to raise her O2 sat levels, and continue to ambulate. Clinical Quality Measures DVT/VTE Risk/Contraindication: Contraindications-Pharm: Other *list below* Other: LARRY CRUZ DO 09/25/22 1501: Subjective Time Seen by a Provider: 12:56 Subjective/Events-last exam Pt seen and examined, states she feels too good to be in the hospital. She did have another bloody BM. Denied SOB. Review of Systems General: No Chills, No Night Sweats Pulmonary: No Dyspnea, No Cough Cardiovascular: No: Chest Pain, Palpitations Gastrointestinal: Hematochezia; No: Nausea, Vomiting, Abdominal Pain Objective Exam General Appearance: No Apparent Distress, Obese Respiratory: Lungs Clear, No Accessory Muscle Use, No Respiratory Distress, Decreased Breath Sounds (right lower base), Expiration, Wheezing Cardiovascular: Regular Rate, Rhythm, No Murmur Gastrointestinal: soft, no organomegaly, distended (mostly normal body habitus) Extremity: No Calf Tenderness, Pedal Edema (1+ left leg) Assessment/Plan Assessment/Plan Assessment/Plan Hematochezia Anemia - 8.8 day prior to 9.2 today PNA of R lower lobe Acute on Chronic Respiratory failure - improved Leukocytosis Pulmonary embolism Elevated troponin Elevated BNP ASIA Pulmonary Hypertension DM type II Plan for cholonoscopy on Monday and will start prep now. Hopefully, can start back on blood thinners after scope tomorrow. Will get consent for colonoscopy with possible biopsy. Plan is to continue ABX to help with pneumonia and try to raise her O2 sat levels, and continue to ambulate. Supervisory-Addendum Brief Verification & Attestation Participated in pt care: history, MDM, physical Personally performed: exam, history, MDM, supervision of care Care discussed with: Medical Student Procedures: n/a Verification and Attestation of Medical Student E/M Service A PA student performed and documented this service. I then reviewed and verified all information documented by the medical student and made modifications to such information, when appropriate. I personally performed a physical exam, medical decision making and then discussed any differences between the notes and made revisions as necessary to create one note. Larry Luis , 09/25/22 , 15:00 TABITHA KIRBY Sep 25, 2022 11:19 LARRY LUIS DO Sep 25, 2022 15:01
--- NOTE | 2022-09-25 11:42 | Progress Note - Cardiology ---
Cardiology SOAP Progress Note Subjective: No cp or palp or syncope No n/v/d No focal weakness Some gen weakness Shortness of breath is better Objective: I&O/Vital Signs 09/25/22 09/25/22 09/25/22 09/25/22 01:37 04:00 06:50 07:00 Pulse 64 59 58 Resp 14 B/P (MAP) 135/92 (106) Pulse Ox 96 O2 Delivery High Flow N/C High Flow N/C O2 Flow Rate 6.00 4.00 09/25/22 09/25/22 09/25/22 07:59 08:00 11:17 Temp 35.8 Pulse 65 Resp 15 B/P (MAP) 142/91 (108) Pulse Ox 94 94 93 O2 Delivery Nasal Cannula High Flow N/C High Flow N/C O2 Flow Rate 4.00 8.00 4.00 09/25/22 00:00 Intake Total 1200 ml Balance 1200 ml Constitutional: AAO x 3, well-developed, well-nourished Respiratory: No accessory muscle use, No respiratory distress; chest expansion is symmetric, chest is bilaterally symmetric, other (coarse breath sounds lower lobes bilat) Cardiovascular: regular rate-rhythm; No JVD; S1 and S2 Gastrointestional: soft, round; No guarding; audible bowel sounds Extremities: other (mild to mod bilat LE swelling) Neurologic/Psychiatric: other (moves all extremities) Skin: normal color, warm/dry; No rash on exposed areas, No ulcerations on exposed areas Results/Procedures: Labs Laboratory Tests 09/24/22 16:07: Glucometer 189H 09/24/22 21:15: Glucometer 135H 09/25/22 05:36: White Blood Count 9.6, Red Blood Count 4.33, Hemoglobin 9.2L, Hematocrit 35, Mean Corpuscular Volume 80, Mean Corpuscular Hemoglobin 21L, Mean Corpuscular Hemoglobin Concent 26L, Red Cell Distribution Width 18.6H, Platelet Count 143, Mean Platelet Volume , Immature Granulocyte % (Auto) 1, Neutrophils (%) (Auto) 86H, Lymphocytes (%) (Auto) 9L, Monocytes (%) (Auto) 5, Eosinophils (%) (Auto) 0, Basophils (%) (Auto) 0, Neutrophils # (Auto) 8.2H, Lymphocytes # (Auto) 0.8L, Monocytes # (Auto) 0.5, Eosinophils # (Auto) 0.0, Basophils # (Auto) 0.0, Immature Granulocyte # (Auto) 0.1, Percent Immature Platelet Fraction 15.5H, Sodium Level 138, Potassium Level 5.3H, Chloride Level 104, Carbon Dioxide Level 26, Anion Gap 8, Blood Urea Nitrogen 24H, Creatinine 0.70, Estimat Glomerular Filtration Rate 97, BUN/Creatinine Ratio 34, Glucose Level 176H, Calcium Level 10.6H, Corrected Calcium 11.2H, Total Bilirubin 0.2, Aspartate Amino Transf (AST/SGOT) 30, Alanine Aminotransferase (ALT/SGPT) 22, Alkaline Phosphatase 69, Total Protein 6.2L, Albumin 3.3 09/25/22 10:29: Glucometer 160H Microbiology 09/21/22 Urine Culture - Final, Complete See Comments 09/21/22 Blood Culture - Preliminary, Resulted No growth Laboratory Tests 09/23/22 17:20 09/24/22 05:19 09/25/22 05:36 A/P: Assessment: Respiratory distress with hypoxia - multi-factorial Pneumonia with sepsis - management per medical/eICU services ?UTI - management per medical services Pulmoary embolism - CTA of the chest on 09-21-22: CT angiographic findings are consistent with pulmonary embolism with nonocclusive thrombus in subsegmental branches of the right lower lobe pulmonary artery - Echo on 09-22-22: LVEF 55-60%, mild MR, mod TR, PASP 60-65 mmHg Minimal troponin elevation - likely Type 2 [place] secondary to hypoxia and sepsis - Reports h/o cardiac cath in [place] in 2021 d/t elevated calcium score (550), reports it only showed mild plaque (35%) New onset bilat LE swelling - L>R HTN - multi-drug regimen (Norvasc, Valsartan, HCTA) HLD - Pravastatin at home DM 2 Probable COPD - quit smoking at age 48 Recent abdominal pain with poor intake - management per medical services H/o shanti francisco Plan: * Continue anticoag for PE * Medical svce managing pneumonia/sepsis * Monitor labs. Hosp svce managing STAN ANTONY MD FACP [facility] Sep 25, 2022 11:42
[2022-09-25] MEDS: FERROUS SULF 325 MG (IRON) TAB PO SCH (12:38)
[2022-09-25] MEDS ORDERED: BISACODYL 5 MG (DULCOLAX) TABLET PO SCH ×2 (13:30→15:00)
[2022-09-25] MEDS ORDERED: LORazepam INJ 2 MG/ML (ATIVAN) VIAL IVP ONE (14:00)
[2022-09-25] MEDS ORDERED: BISACODYL 5 MG (DULCOLAX) TABLET PO ONE (15:42)
[2022-09-25] MEDS ORDERED: polyethylene glycoL Bowel Prep(MIRALAX) 238 GM PO SCH (18:00)
[2022-09-25 19:50] VITALS: BP 150/94
[2022-09-25] MEDS: AZITHROMYCIN 250 MG TAB (ZITHROMAX) PO SCH (21:12)
[2022-09-25] MEDS: MONTELUKAST 10 MG (SINGULAIR) TAB PO SCH (21:12)
[2022-09-25] MEDS: cefTRIAXone IV/IM 1,000 MG in NS (IVPB) 50 ML IV SCH (21:13)
[2022-09-25 23:25] VITALS: BP 147/88
[2022-09-26] VITALS (7 sets, daily range): BP systolic 102–133; BP diastolic 56–84
[2022-09-26] MEDS: GLIMEPIRIDE 2 MG (AMARYL) TAB PO SCH (05:29)
[2022-09-26] MEDS: inSUlin ASPART (NovoLOG) 1 UNIT/0.01 ML (CHARGE PER UNIT) SC SCH ×3 (05:39→16:23)
[2022-09-26 05:40] LABS: BASOPHILS % (AUTO) 0 % (0-10); EOSINOPHILS % (AUTO) 0 % (0-10); HEMATOCRIT 36 % (35-52); HEMOGLOBIN 9.7 g/dL (11.5-16.0); LYMPHOCYTES # (AUTO) 0.8 10^3/uL (1.0-4.0); LYMPHOCYTES % (AUTO) 9 % (12-44); MEAN CORPUSCULAR HEMOGLOBIN 21 pg (25-34); MEAN CORPUSCULAR HGB CONC 27 g/dL (32-36); MEAN CORPUSCULAR VOLUME 78 fL (80-99); MEAN PLATELET VOLUME 12.2 fL (9.0-12.2); MONOCYTES # (AUTO) 0.4 10^3/uL (0.0-1.0); MONOCYTES % (AUTO) 4 % (0-12); NEUTROPHILS % (AUTO) 87 % (42-75); PLATELET COUNT 250 10^3/uL (130-400); WHITE BLOOD COUNT 9.2 10^3/uL (4.3-11.0)
[2022-09-26 06:04] LABS: ALBUMIN 3.6 GM/DL (3.2-4.5); BILIRUBIN,TOTAL 0.5 MG/DL (0.1-1.0); CALCIUM 11.5 MG/DL (8.5-10.1); CREATININE SERUM 0.69 MG/DL (0.60-1.30); POTASSIUM 4.5 MMOL/L (3.6-5.0); TOTAL PROTEIN 6.3 GM/DL (6.4-8.2)
[2022-09-26] MEDS: MAGNESIUM OXIDE (MAG-OX)400 MG TAB PO SCH (07:24)
[2022-09-26] MEDS: LORATADINE (CLARITIN) 10 MG TAB PO SCH (07:25)
[2022-09-26] MEDS: LACTOBACILLUS ACIDOPHILUS (PROBIOTIC) CAPSULE PO SCH (07:25)
[2022-09-26] MEDS: AtorvaSTATin TABLET 10 MG TABLET PO SCH (07:25)
[2022-09-26] MEDS: VALACYCLOVIR 500 MG TAB (VALTREX) PO SCH (07:26)
[2022-09-26] MEDS: VITAMIN D3 125 MCG (5,000 UNITS) CAPSULE PO SCH (07:26)
--- NOTE | 2022-09-26 07:54 | Progress Note - Surgery ---
TABITHA KIRBY 09/26/22 0754: Subjective Date Seen by a Provider: Sep 26, 2022 Time Seen by a Provider: 07:35 Subjective/Events-last exam Patient is seen this morning sitting up in bed. She says that the bowel prep went well last night as she was preparing for her colonoscopy today. She says that she is still feeling well overall. She states today that her daughters say that she has complained of bowel pain for a long time but she does not remember doing so. She says that she did not have any blood in her stools yesterday as she was doing bowel prep nor dark stools. She is not complaining of any abdominal tenderness and says her SOA has gotten better today too. She is cur rently on 3L of oxygen, her WBC has stayed at 9.2 and her Hgb has trended as 8.8 to 9.2 to 9.7. She denies any palpitations, syncope, nausea or vomiting. Review of Systems General: No Chills, No Night Sweats HEENT: No Head Aches, No Eye Pain Pulmonary: No Dyspnea, No Cough Cardiovascular: No: Chest Pain, Palpitations, Edema Gastrointestinal: No: Nausea, Vomiting Genitourinary: No Dysuria, No Frequency Musculoskeletal: No: back pain Neurological: No: Numbness Focused Exam Time of Focused Exam: 23:00 Objective Exam Vital Signs Date Time Temp Pulse Resp B/P (MAP) Pulse Ox O2 Delivery O2 Flow Rate FiO2 09/26/22 03:57 35.8 58 12 124/84 (97) 96 Nasal Cannula 3.00 09/26/22 01:00 61 09/26/22 00:36 94 95 09/25/22 23:25 36.3 74 16 147/88 (107) 97 Nasal Cannula 3.00 09/25/22 21:44 95 High Flow N/C 3.00 09/25/22 20:00 Nasal Cannula 4.00 09/25/22 19:50 36.4 70 18 150/94 (112) 96 Nasal Cannula 3.00 09/25/22 19:30 36.4 72 18 150/94 (112) 96 Nasal Cannula 3.00 09/25/22 19:00 103 09/25/22 18:29 36.6 68 147/87 (107) Nasal Cannula 3.00 09/25/22 16:00 36.0 7/9/23 12:50 78 09/25/22 11:53 35.9 75 18 135/86 (102) 94 Nasal Cannula 4.00 09/25/22 11:17 93 High Flow N/C 4.00 09/25/22 08:00 94 High Flow N/C 8.00 09/25/22 07:59 35.8 65 15 142/91 (108) 94 Nasal Cannula 4.00 I & O 09/26/22 07:00 Intake Total 4792 ml Balance 4792 ml Capillary Refill : Less Than 3 Seconds General Appearance: No Apparent Distress, Obese HEENT: PERRL/EOMI Neck: Non Tender, Supple Respiratory: Lungs Clear, No Accessory Muscle Use, No Respiratory Distress, Decreased Breath Sounds (right lower base, better than day prior. ), Expiration, Wheezing Cardiovascular: Regular Rate, Rhythm, No Murmur Peripheral Pulses: 1+ Dorsalis Pedis (R), 1+ Left Dors-Pedis (L) Gastrointestinal: soft, no organomegaly, distended (mostly normal body habitus, slightly smaller than yesterday) Extremity: No Calf Tenderness; No Pedal Edema Neurologic/Psychiatric: Alert, Oriented x3, Normal Mood/Affect Skin: Warm/Dry Results Lab Laboratory Tests 09/25/22 10:29: Glucometer 160H 09/25/22 15:29: Glucometer 105 09/25/22 21:10: Glucometer 146H 09/26/22 05:12: White Blood Count 9.2, Red Blood Count 4.64, Hemoglobin 9.7L, Hematocrit 36, Mean Corpuscular Volume 78L, Mean Corpuscular Hemoglobin 21L, Mean Corpuscular Hemoglobin Concent 27L, Red Cell Distribution Width 18.3H, Platelet Count 250, Mean Platelet Volume 12.2, Immature Granulocyte % (Auto) 1, Neutrophils (%) (Auto) 87H, Lymphocytes (%) (Auto) 9L, Monocytes (%) (Auto) 4, Eosinophils (%) (Auto) 0, Basophils (%) (Auto) 0, Neutrophils # (Auto) 8.0H, Lymphocytes # (Auto) 0.8L, Monocytes # (Auto) 0.4, Eosinophils # (Auto) 0.0, Basophils # (Auto) 0.0, Immature Granulocyte # (Auto) 0.1, Sodium Level 138, Potassium Level 4.5, Chloride Level 100, Carbon Dioxide Level 30, Anion Gap 8, Blood Urea Nitrogen 18, Creatinine 0.69, Estimat Glomerular Filtration Rate 97, BUN/Creatinine Ratio 26, Glucose Level 131H, Calcium Level 11.5H, Corrected Calcium 11.8H, Total Bilirubin 0.5, Aspartate Amino Transf (AST/SGOT) 14, Alanine Aminotransferase (ALT/SGPT) 26, Alkaline Phosphatase 73, Total Protein 6.3L, Albumin 3.6 Microbiology 09/21/22 Urine Culture - Final, Complete See Comments 09/21/22 Blood Culture - Preliminary, Resulted No growth Assessment/Plan Assessment/Plan Assessment/Plan Assessment: Profound acute hematochezia requiring holding of Lovenox and aspirin and transfer back to ICU \ Hematochezia Chronic History of Abdominal Pain Right Lower Base Pneumonia Patient will have an colonoscopy today and has been NPO since yesterday at lunch. Her Hgb has risen over the last 3 days and her WBC has stabilized. Continue IV abx as well as O2 as needed. Screening for cause of hematochezia today. She is encouraged to get up and move throughout the day and is ambulating back and forth to the bathroom by herself currently. Clinical Quality Measures DVT/VTE Risk/Contraindication: Contraindications-Pharm: Other *list below* Other: LARRY CRUZ DO 09/26/22 1203: Subjective Time Seen by a Provider: 11:57 Subjective/Events-last exam Pt seen and examined, states she is ready for colonoscopy. She has no complaints. Review of Systems Pulmonary: No Dyspnea, No Cough Cardiovascular: No: Chest Pain, Palpitations Gastrointestinal: No: Nausea, Vomiting Objective Exam General Appearance: No Apparent Distress, Obese HEENT: PERRL/EOMI Respiratory: Lungs Clear, No Accessory Muscle Use, No Respiratory Distress, Decreased Breath Sounds (right lower base, better than day prior. ), Expiration, Wheezing Cardiovascular: Regular Rate, Rhythm, No Murmur Gastrointestinal: soft, distended (mostly normal body habitus, slightly smaller than yesterday) Extremity: No Calf Tenderness, No Pedal Edema, Pedal Edema Assessment/Plan Assessment/Plan Assessment/Plan Hematochezia Chronic History of Abdominal Pain Right Lower Base Pneumonia PE Patient will have an colonoscopy today and has been NPO since yesterday at lunch. Her Hgb has risen over the last 3 days and her WBC has stabilized. Continue IV abx as well as O2 as needed. She is encouraged to get up and move throughout the day and is ambulating back and forth to the bathroom by herself currently. Supervisory-Addendum Brief Verification & Attestation Participated in pt care: history, MDM, physical Personally performed: exam, history, MDM, supervision of care Care discussed with: Medical Student Procedures: n/a Verification and Attestation of Medical Student E/M Service A PA student performed and documented this service. I then reviewed and verified all information documented by the medical student and made modifications to such information, when appropriate. I personally performed a physical exam, medical decision making and then discussed any differences between the notes and made revisions as necessary to create one note. Larry Luis , 09/26/22 , 12:03 TABITHA KIRBY Sep 26, 2022 07:54 LARRY LUIS DO Sep 26, 2022 12:03
[2022-09-26] MEDS: amLODIPine 5 MG (NORVASC) TAB PO SCH (09:10)
[2022-09-26] MEDS: PANTOPRAZOLE 40 MG (PROTONIX) TAB PO SCH (09:10)
[2022-09-26] MEDS: VALSARTAN 80 MG (DIOVAN) TAB PO SCH (09:10)
--- NOTE | 2022-09-26 09:54 | Progress Note - Cardiology ---
Cardiology SOAP Progress Note Subjective: Lying in bed Family x1 at the bedside No c/o CP, SOB, palpitations Reports having colonoscopy today Objective: I&O/Vital Signs 09/25/22 09/26/22 09/26/22 09/26/22 23:25 00:36 01:00 03:57 Temp 36.3 35.8 Pulse 74 94 61 58 Resp 16 12 B/P (MAP) 147/88 (107) 124/84 (97) Pulse Ox 97 95 96 O2 Delivery Nasal Cannula Nasal Cannula O2 Flow Rate 3.00 3.00 09/26/22 09/26/22 07:00 07:47 Temp 36.0 Pulse 65 63 Resp 16 B/P (MAP) 132/79 (96) Pulse Ox 92 O2 Delivery Nasal Cannula O2 Flow Rate 3.00 09/26/22 00:00 Intake Total 4192 ml Balance 4192 ml Constitutional: AAO x 3, well-developed, well-nourished Respiratory: No accessory muscle use, No respiratory distress; chest expansion is symmetric, chest is bilaterally symmetric, other (coarse breath sounds lower lobes bilat) Cardiovascular: regular rate-rhythm; No JVD; S1 and S2 Gastrointestional: soft, round; No guarding; audible bowel sounds Extremities: other (mild to mod bilat LE swelling) Neurologic/Psychiatric: other (moves all extremities) Skin: normal color, warm/dry; No rash on exposed areas, No ulcerations on exposed areas Results/Procedures: Labs Laboratory Tests 09/25/22 10:29: Glucometer 160H 09/25/22 15:29: Glucometer 105 09/25/22 21:10: Glucometer 146H 09/26/22 05:12: White Blood Count 9.2, Red Blood Count 4.64, Hemoglobin 9.7L, Hematocrit 36, Mean Corpuscular Volume 78L, Mean Corpuscular Hemoglobin 21L, Mean Corpuscular Hemoglobin Concent 27L, Red Cell Distribution Width 18.3H, Platelet Count 250, Mean Platelet Volume 12.2, Immature Granulocyte % (Auto) 1, Neutrophils (%) (Auto) 87H, Lymphocytes (%) (Auto) 9L, Monocytes (%) (Auto) 4, Eosinophils (%) (Auto) 0, Basophils (%) (Auto) 0, Neutrophils # (Auto) 8.0H, Lymphocytes # (Auto) 0.8L, Monocytes # (Auto) 0.4, Eosinophils # (Auto) 0.0, Basophils # (Auto) 0.0, Immature Granulocyte # (Auto) 0.1, Sodium Level 138, Potassium Level 4.5, Chloride Level 100, Carbon Dioxide Level 30, Anion Gap 8, Blood Urea Nitrogen 18, Creatinine 0.69, Estimat Glomerular Filtration Rate 97, BUN/Creatinine Ratio 26, Glucose Level 131H, Calcium Level 11.5H, Corrected Calcium 11.8H, Total Bilirubin 0.5, Aspartate Amino Transf (AST/SGOT) 14, Alanine Aminotransferase (ALT/SGPT) 26, Alkaline Phosphatase 73, Total Protein 6.3L, Albumin 3.6 Microbiology 09/21/22 Urine Culture - Final, Complete See Comments 09/21/22 Blood Culture - Preliminary, Resulted No growth Laboratory Tests 09/25/22 05:36 09/26/22 05:12 A/P: Assessment: Respiratory distress with hypoxia - multi-factorial Pneumonia with sepsis - management per medical/eICU services ?UTI - management per medical services Pulmoary embolism - CTA of the chest on 09-21-22: CT angiographic findings are consistent with pulmonary embolism with nonocclusive thrombus in subsegmental branches of the right lower lobe pulmonary artery - Echo on 09-22-22: LVEF 55-60%, mild MR, mod TR, PASP 60-65 mmHg Minimal troponin elevation - likely Type 2 [place] secondary to hypoxia and sepsis - Reports h/o cardiac cath in [place] in 2021 d/t elevated calcium score (550), reports it only showed mild plaque (35%) New onset bilat LE swelling - L>R HTN - multi-drug regimen (Norvasc, Valsartan, HCTZ) HLD - Pravastatin at home DM 2 Probable COPD - quit smoking at age 48 Recent abdominal pain with poor intake - management per medical services H/o [facility] Plan: * Continue anticoag for PE * Medical svce managing pneumonia/sepsis * Monitor labs. Hosp svce managing * Colonoscopy later today d/t abd discomfort and blood in BM - JORGE Walsh [facility] Sep 26, 2022 09:54
--- NOTE | 2022-09-26 10:15 | Progress Note ---
Subjective Date Seen by a Provider: Sep 26, 2022 Time Seen by a Provider: 10:15 Focused Exam Time of Focused Exam: 23:00 Objective Exam Last Set of Vital Signs Vital Signs Date Time Temp Pulse Resp B/P (MAP) Pulse Ox O2 Delivery O2 Flow Rate FiO2 09/26/22 07:47 36.0 63 16 132/79 (96) 92 Nasal Cannula 3.00 09/22/22 03:26 70 Capillary Refill : Less Than 3 Seconds I&O Intake and Output 09/26/22 00:00 Intake Total 4992 ml Balance 4992 ml Intake Oral 4992 ml # Voids 19 # Bowel Movements 7 Results Lab Laboratory Tests 09/25/22 10:29: Glucometer 160H 09/25/22 15:29: Glucometer 105 09/25/22 21:10: Glucometer 146H 09/26/22 05:12: White Blood Count 9.2, Red Blood Count 4.64, Hemoglobin 9.7L, Hematocrit 36, Mean Corpuscular Volume 78L, Mean Corpuscular Hemoglobin 21L, Mean Corpuscular Hemoglobin Concent 27L, Red Cell Distribution Width 18.3H, Platelet Count 250, Mean Platelet Volume 12.2, Immature Granulocyte % (Auto) 1, Neutrophils (%) (Auto) 87H, Lymphocytes (%) (Auto) 9L, Monocytes (%) (Auto) 4, Eosinophils (%) (Auto) 0, Basophils (%) (Auto) 0, Neutrophils # (Auto) 8.0H, Lymphocytes # (Auto) 0.8L, Monocytes # (Auto) 0.4, Eosinophils # (Auto) 0.0, Basophils # (Auto) 0.0, Immature Granulocyte # (Auto) 0.1, Sodium Level 138, Potassium Level 4.5, Chloride Level 100, Carbon Dioxide Level 30, Anion Gap 8, Blood Urea Nitrogen 18, Creatinine 0.69, Estimat Glomerular Filtration Rate 97, BUN/Creatinine Ratio 26, Glucose Level 131H, Calcium Level 11.5H, Corrected Calcium 11.8H, Total Bilirubin 0.5, Aspartate Amino Transf (AST/SGOT) 14, Alanine Aminotransferase (ALT/SGPT) 26, Alkaline Phosphatase 73, Total Protein 6.3L, Albumin 3.6 Microbiology 09/21/22 Urine Culture - Final, Complete See Comments 09/21/22 Blood Culture - Preliminary, Resulted No growth Assessment/Plan Assessment/Plan Assess & Plan/Chief Complaint Assessment: Profound acute hematochezia requiring holding of Lovenox and aspirin and transfer back to ICU Assessment: PNA of R lower lobe Acute hypoxic and hypercapnic respiratory failure Sepsis Leukocytosis Lactic acidosis Cotinue oxygen supplementation with bipap. Wean to high flow nasal cannula as tolerated Continue duonebs and incentive spirometer Received dexamethasone in ED Ceftriaxone 1000mg and Azithromycin 500mg WBC up to 15.9 from 13.7 Afebrile Lactic acid down to 1.03 from 2.3 Blood pressure stable as of now with NaCl 1 L at 150mls/hr, pressor support if necessary ABG showed evidence of respiratory acidosis with compensation Negative viral panel for flu A, B and covid Pulmonary embolism D dimer elevated in ED at 0.79 CTA showed evidence of PE in R subsegmental branches of the right lower lobe pulmonary artery Lovenox 90 mg BID-on hold due to GIB Elevated troponinhold aspirin due to GI bleed Elevated BNP minimal troponin elevation Cardiology consulted Likely type 2 [place] secondary to hypoxia Probable UTI UA was + for bacteria and leukocyte esterase continue IV fluids and abx as above Recent COVID infection [place] has used CPAP in the past, currently does not use DVT ppx- therapeutic dose of lovenox- Hold due to GI bleed Diet- regular CODE status- full Clinical Quality Measures Admission Status Admission Dx Assessment: BiPAP Cardiology Communications Planner ICU appreciated Anticoagulation DVT/VTE Risk/Contraindication: Contraindications-Pharm: Other *list below* Other: SUNDEEP MUNGUIA DO Sep 26, 2022 10:15
[2022-09-26] MEDS ORDERED: LACTATED RINGERS 1,000 ML IV STA (12:20)
[2022-09-26] MEDS ORDERED: LACTATED RINGERS 1,000 ML IV ONE (12:27)
[2022-09-26] MEDS ORDERED: PROPOFOL INJECTION 50 ML IV ONE (12:38)
--- NOTE | 2022-09-26 13:23 | Anesthesia-General Post-Op ---
MAC Patient Condition Mental Status/LOC: Same as Preop Cardiovascular: Satisfactory Nausea/Vomiting: Absent Respiratory: Satisfactory Pain: Controlled Complications: Absent Post Op Complications Complications None Follow Up Care/Instructions Patient Instructions None needed. Anesthesiology Discharge Order Discharge Order Patient is doing well, no complaints, stable vital signs, no apparent adverse anesthesia problems. No complications reported per nursing. KING SHELL CRNA Sep 26, 2022 13:23
--- NOTE | 2022-09-26 13:42 | Progress Note-Post Operative ---
Post-Operative Progess Note Surgeon (s)/Rn Access (s) Surgeon JUAN LUIS DO Rn Access: MICHELLE Petersen student Pre-Operative Diagnosis Hematochezia, Abd pain Post-Operative Diagnosis Polyps Diverticula int hemorrhoids Procedure & Operative Findings Date of Procedure 09/26/22 Procedure Performed/Findings Colonoscopy with snare polypectomy PROCEDURE NOTE: After informed consent was obtained, the patient was brought to the endoscopy suite, placed in bed in left lateral decubitus position. She was administered IV sedation by the COMMISSIONING MANAGER who then monitored her vitals the entire time, heart rate, blood pressure and pulse ox and the scope was inserted, pushed all the way to about 150 cm and pushed into the cecum, took a picture of appendiceal orifice and noted the ileocecal valve. Then slowly withdrew the scope insufflating to look circumferentially at the gardner starting in the cecum, up the ascending colon to the hepatic flexure, then down the transverse colon, splenic flexure, into the descending colon down; found a small polyp here and removed it with the snare. In the sigmoid colon I found two large polyps and removed them with hot snare. Finally, into the rectal vault and retroflexed the scope. Took a picture of the internal hemorrhoids. I did not see any active bleeding, did find a "poop ball" covered with old blood. The patient tolerated the procedure. She was recovered in endoscopy suite. Recommended for repeat colonoscopy in 5 years. Anesthesia Type IV sedation by COMMISSIONING MANAGER Estimated Blood Loss Estimated blood loss (mL): scant Specimens/Packing Specimens Removed desc colon polyp sigmoid polyp x 2 JUAN LUIS DO Sep 26, 2022 13:42
[2022-09-26] MEDS ORDERED: CEFD300C3 PO (15:25)
[2022-09-26] MEDS ORDERED: MONT-40 PO (15:25)
[2022-09-26] MEDS ORDERED: APIX5TAB PO (15:25)
[2022-09-26] MEDS ORDERED: PANT40TA52 PO (15:25)
[2022-09-26] MEDS ORDERED: PRED10TA22 PO (15:25)
--- NOTE | 2022-09-26 15:26 | Discharge Summary ---
Diagnosis/Chief Complaint Date of Admission Sep 22, 2022 at 01:04 Date of Discharge Discharge Date: Sep 26, 2022 Discharge Diagnosis Assessment: Profound acute hematochezia requiring holding of Lovenox and aspirin and transfer back to ICU Assessment: PNA of R lower lobe Acute hypoxic and hypercapnic respiratory failure Sepsis Leukocytosis Lactic acidosis Cotinue oxygen supplementation with bipap. Wean to high flow nasal cannula as tolerated Continue duonebs and incentive spirometer Received dexamethasone in ED Ceftriaxone 1000mg and Azithromycin 500mg WBC up to 15.9 from 13.7 Afebrile Lactic acid down to 1.03 from 2.3 Blood pressure stable as of now with NaCl 1 L at 150mls/hr, pressor support if necessary ABG showed evidence of respiratory acidosis with compensation Negative viral panel for flu A, B and covid Pulmonary embolism D dimer elevated in ED at 0.79 CTA showed evidence of PE in R subsegmental branches of the right lower lobe pulmonary artery Lovenox 90 mg BID-on hold due to GIB Elevated troponinhold aspirin due to GI bleed Elevated BNP minimal troponin elevation Cardiology consulted Likely type 2 IA secondary to hypoxia Probable UTI UA was + for bacteria and leukocyte esterase continue IV fluids and abx as above Recent COVID infection ASIA has used CPAP in the past, currently does not use DVT ppx- therapeutic dose of lovenox- Hold due to GI bleed Diet- regular CODE status- full Discharge Summary Discharge Physical Examination Allergies: Coded Allergies: Sulfa (Sulfonamide Antibiotics) (Verified Allergy, Unknown, 09/21/22) lisinopril (Verified Allergy, Unknown, 09/21/22) metronidazole (Verified Allergy, Unknown, 09/21/22) Vitals & I&Os Vital Signs Date Time Temp Pulse Resp B/P (MAP) Pulse Ox O2 Delivery O2 Flow Rate FiO2 09/26/22 16:34 36.5 77 18 128/67 (87) 96 Nasal Cannula 3.00 09/22/22 03:26 70 General Appearance: Alert, Oriented X3, Cooperative Respiratory: Clear to Auscultation Cardiovascular: Regular Rate Psych/Mental Status: Mental Status NL Hospital Course Was the Problem List Reviewed?: Yes Hospital course: Patient had a complicated hospital course which started in the ICU due to acute on chronic respiratory failure with evidence of pulmonary embolism on CT angiogram. Pneumonia was also treated with antibiotics as well as the UTI. Cardiology was consulted for elevated troponin and placed on aspirin. Untreated sleep apnea for the past 35 years placed her at risk for pulmonary hypertension which was confirmed on echocardiogram. Prior smoking placed her at risk for COPD responded to IV steroids. She did have an episode of large amount of hematochezia with mild hypotension and tachycardia requiring transfer back to the ICU and Dr. Goetz was consulted. EGD showed watermelon stomach and gastritis. She remained stable and her hemoglobin did not require transfusion. Anticoagulation was held along with aspirin. Colonoscopy was performed no evidence of any bleeding source likely a diverticular bleed had occurred that caused the blood loss. She was deemed stable for discharge and she will have close follow-up with her primary care provider. Labs (last 24 hrs) Laboratory Tests 09/21/22 21:28: Influenza Type A (RT-PCR) Not Detected, Influenza Type B (RT-PCR) Not Detected, SARS-CoV-2 RNA (RT-PCR) Not Detected 09/21/22 21:30: White Blood Count 13.7H, Red Blood Count 5.16H, Hemoglobin 11.0L, Hematocrit 41, Mean Corpuscular Volume 80, Mean Corpuscular Hemoglobin 21L, Mean Corpuscular Hemoglobin Concent 27L, Red Cell Distribution Width 19.9H, Platelet Count 240, Mean Platelet Volume 12.1, Immature Granulocyte % (Auto) 1, Neutrophils (%) (Auto) 84H, Lymphocytes (%) (Auto) 8L, Monocytes (%) (Auto) 6, Eosinophils (%) (Auto) 0, Basophils (%) (Auto) 1, Neutrophils # (Auto) 11.5H, Lymphocytes # (Auto) 1.1, Monocytes # (Auto) 0.8, Eosinophils # (Auto) 0.0, Basophils # (Auto) 0.1, Immature Granulocyte # (Auto) 0.1, Neutrophils % (Manual) 80, Lymphocytes % (Manual) 5, Monocytes % (Manual) 7, Band Neutrophils 6, Nucleated Red Blood Cells 4, Reactive Lymphocytes 2, Percent Immature Platelet Fraction 9.9H, Polychromasia MODERATE, Hypochromasia SLIGHT, Anisocytosis MODERATE, Prothrombin Time 13.6, INR Comment 1.0, Activated Partial Thromboplast Time 29, D-Dimer 0.79H, Sodium Level 137, Potassium Level 4.4, Chloride Level 99, Carbon Dioxide Level 27, Anion Gap 11, Blood Urea Nitrogen 14, Creatinine 0.85, Estimat Glomerular Filtration Rate 76, BUN/Creatinine Ratio 16, Glucose Level 166H, Lac tic Acid Level 2.30*H, Calcium Level 10.6H, Corrected Calcium 10.7H, Magnesium Level 2.1, Total Bilirubin 0.8, Aspartate Amino Transf (AST/SGOT) 33, Alanine Aminotransferase (ALT/SGPT) 22, Alkaline Phosphatase 89, Total Creatine Kinase 28L, Creatine Kinase MB 0.7, Myoglobin 25.8, Troponin I 0.072H, B-Type Natriuretic Peptide 294.2H, Total Protein 7.4, Albumin 3.9 09/21/22 21:46: Blood Gas Puncture Site RRAD, Blood Gas Patient Temperature 37.6, Arterial Blood pH 7.36L, Arterial Blood Partial Pressure CO2 59H, Arterial Blood Partial Pressure O2 71L, Arterial Blood HCO3 32H, Arterial Blood Total CO2 34.2H, Arterial Blood Oxygen Saturation 94, Arterial Blood Base Excess 7.2H, Zenon Test YES-POS, Blood Gas Ventilator Setting NO, Blood Gas Inspired Oxygen 10 09/21/22 23:09: Urine Color YELLOW, Urine Clarity SL CLOUDY, Urine pH 6.0, Urine Specific Amlin 1.025H, Urine Protein 1+H, Urine Glucose (UA) NEGATIVE, Urine Ketones NEGATIVE, Urine Nitrite NEGATIVE, Urine Bilirubin NEGATIVE, Urine Urobilinogen 1.0, Urine Leukocyte Esterase TRACEH, Urine RBC (Auto) NEGATIVE, Urine RBC RARE, Urine WBC 2-5, Urine Squamous Epithelial Cells 2-5, Urine Crystals NONE, Urine Bacteria MODERATEH, Urine Casts PRESENT, Urine Hyaline Casts 0-2H, Urine Mucus MODERATEH, Urine Culture Indicated CULTURE PENDING 09/21/22 23:30: Lactic Acid Level 1.87 09/22/22 05:08: Lactic Acid Level 1.03, White Blood Count 15.9H, Red Blood Count 5.03, Hemoglobin 10.8L, Hematocrit 41, Mean Corpuscular Volume 81, Mean Corpuscular Hemoglobin 22L, Mean Corpuscular Hemoglobin Concent 26L, Red Cell Distribution Width 19.6H, Platelet Count 209, Mean Platelet Volume 12.0, Immature Granulocyte % (Auto) 1, Neutrophils (%) (Auto) 94H, Lymphocytes (%) (Auto) 4L, Monocytes (%) (Auto) 1, Eosinophils (%) (Auto) 0, Basophils (%) (Auto) 0, Neutrophils # (Auto) 14.9H, Lymphocytes # (Auto) 0.7L, Monocytes # (Auto) 0.2, Eosinophils # (Auto) 0.0, Basophils # (Auto) 0.1, Immature Granulocyte # (Auto) 0.2H, Percent Immature Platelet Fraction 11.0H, Sodium Level 139, Potassium Level 4.6, Chloride Level 102, Carbon Dioxide Level 28, Anion Gap 9, Blood Urea Nitrogen 15, Creatinine 0.81, Estimat Glomerular Filtration Rate 81, BUN/Creatinine Ratio 19, Glucose Level 222H, Calcium Level 10.2H, Corrected Calcium 10.4H, Phosphorus Level 3.9, Magnesium Level 2.2, Total Bilirubin 0.4, Aspartate Amino Transf (AST/SGOT) 25, Alanine Aminotransferase (ALT/SGPT) 26, Alkaline Phosphatase 95, Troponin I 0.057H, B-Type Natriuretic Peptide 561.6H, Total Protein 7.1, Albumin 3.8 09/22/22 10:53: Glucometer 179H 09/22/22 20:41: Glucometer 191H 09/23/22 05:40: White Blood Count 16.4H, Red Blood Count 4.31, Hemoglobin 9.4L, Hematocrit 36, Mean Corpuscular Volume 83, Mean Corpuscular Hemoglobin 22L, Mean Corpuscular Hemoglobin Concent 26L, Red Cell Distribution Width 19.0H, Platelet Count 185, Mean Platelet Volume 12.0, Immature Granulocyte % (Auto) 1, Neutrophils (%) (Auto) 91H, Lymphocytes (%) (Auto) 4L, Monocytes (%) (Auto) 5, Eosinophils (%) (Auto) 0, Basophils (%) (Auto) 0, Neutrophils # (Auto) 14.9H, Lymphocytes # (Auto) 0.6L, Monocytes # (Auto) 0.8, Eosinophils # (Auto) 0.0, Basophils # (Auto) 0.0, Immature Granulocyte # (Auto) 0.1, Sodium Level 140, Potassium Level 4.8, Chloride Level 103, Carbon Dioxide Level 26, Anion Gap 11, Blood Urea Nitrogen 21H, Creatinine 0.79, Estimat Glomerular Filtration Rate 83, BUN/Creatinine Ratio 27, Glucose Level 227H, Calcium Level 10.3H, Corrected Calcium 10.8H, Phosphorus Level 2.8, Magnesium Level 2.3, Total Bilirubin 0.2, Aspartate Amino Transf (AST/SGOT) 17, Alanine Aminotransferase (ALT/SGPT) 21, Alkaline Phosphatase 84, Total Protein 6.3L, Albumin 3.4 09/23/22 05:51: Glucometer 211H 09/23/22 15:47: Glucometer 194H 09/23/22 17:20: Hemoglobin 9.2L, Hematocrit 35 09/23/22 21:27: Glucometer 156H 09/24/22 05:19: White Blood Count 12.3H, Red Blood Count 4.12, Hemoglobin 8.8L, Hematocrit 33L, Mean Corpuscular Volume 81, Mean Corpuscular Hemoglobin 21L, Mean Corpuscular Hemoglobin Concent 26L, Red Cell Distribution Width 18.7H, Platelet Count 189, Mean Platelet Volume 12.3H, Immature Granulocyte % (Auto) 1, Neutrophils (%) (Auto) 91H, Lymphocytes (%) (Auto) 5L, Monocytes (%) (Auto) 4, Eosinophils (%) (Auto) 0, Basophils (%) (Auto) 0, Neutrophils # (Auto) 11.1H, Lymphocytes # (Auto) 0.6L, Monocytes # (Auto) 0.5, Eosinophils # (Auto) 0.0, Basophils # (Auto) 0.0, Immature Granulocyte # (Auto) 0.1, Sodium Level 140, Potassium Level 4.9, Chloride Level 104, Carbon Dioxide Level 29, Anion Gap 7, Blood Urea Nitrogen 23H, Creatinine 0.71, Estimat Glomerular Filtration Rate 95, BUN/Creatinine Ratio 32, Glucose Level 174H, Calcium Level 10.3H, Corrected Calcium 10.8H, Phosphorus Level 2.4, Magnesium Level 2.2, Total Bilirubin 0.3, Aspartate Amino Transf (AST/SGOT) 13, Alanine Aminotransferase (ALT/SGPT) 20, Alkaline Phosphatase 79, Total Protein 6.0L, Albumin 3.4 09/24/22 06:35: Blood Gas Puncture Site RR, Blood Gas Patient Temperature 35.6, Arterial Blood pH 7.36L, Arterial Blood Partial Pressure CO2 58H, Arterial Blood Partial Pressure O2 68L, Arterial Blood HCO3 33H, Arterial Blood Total CO2 34.4H, Arterial Blood Oxygen Saturation 95, Arterial Blood Base Excess 6.9H, Zenon Test YES-POS, Blood Gas Ventilator Setting NO, Blood Gas Inspired Oxygen 6L 09/24/22 10:41: Glucometer 135H 09/24/22 16:07: Glucometer 189H 09/24/22 21:15: Glucometer 135H 09/25/22 05:36: White Blood Count 9.6, Red Blood Count 4.33, Hemoglobin 9.2L, Hematocrit 35, Mean Corpuscular Volume 80, Mean Corpuscular Hemoglobin 21L, Mean Corpuscular Hemoglobin Concent 26L, Red Cell Distribution Width 18.6H, Platelet Count 143, Mean Platelet Volume , Immature Granulocyte % (Auto) 1, Neutrophils (%) (Auto) 86H, Lymphocytes (%) (Auto) 9L, Monocytes (%) (Auto) 5, Eosinophils (%) (Auto) 0, Basophils (%) (Auto) 0, Neutrophils # (Auto) 8.2H, Lymphocytes # (Auto) 0.8L, Monocytes # (Auto) 0.5, Eosinophils # (Auto) 0.0, Basophils # (Auto) 0.0, Immature Granulocyte # (Auto) 0.1, Percent Immature Platelet Fraction 15.5H, Sodium Level 138, Potassium Level 5.3H, Chloride Level 104, Carbon Dioxide Level 26, Anion Gap 8, Blood Urea Nitrogen 24H, Creatinine 0.70, Estimat Glomerular Filtration Rate 97, BUN/Creatinine Ratio 34, Glucose Level 176H, Calcium Level 10.6H, Corrected Calcium 11.2H, Iron Level 23L, Total Bilirubin 0.2, Aspartate Amino Transf (AST/SGOT) 30, Alanine Aminotransferase (ALT/SGPT) 22, Alkaline Phosphatase 69, Total Protein 6.2L, Albumin 3.3 09/25/22 10:29: Glucometer 160H 09/25/22 15:29: Glucometer 105 09/25/22 21:10: Glucometer 146H 09/26/22 05:12: White Blood Count 9.2, Red Blood Count 4.64, Hemoglobin 9.7L, Hematocrit 36, Mean Corpuscular Volume 78L, Mean Corpuscular Hemoglobin 21L, Mean Corpuscular Hemoglobin Concent 27L, Red Cell Distribution Width 18.3H, Platelet Count 250, Mean Platelet Volume 12.2, Immature Granulocyte % (Auto) 1, Neutrophils (%) (Auto) 87H, Lymphocytes (%) (Auto) 9L, Monocytes (%) (Auto) 4, Eosinophils (%) (Auto) 0, Basophils (%) (Auto) 0, Neutrophils # (Auto) 8.0H, Lymphocytes # (Auto) 0.8L, Monocytes # (Auto) 0.4, Eosinophils # (Auto) 0.0, Basophils # (Auto) 0.0, Immature Granulocyte # (Auto) 0.1, Sodium Level 138, Potassium Level 4.5, Chloride Level 100, Carbon Dioxide Level 30, Anion Gap 8, Blood Urea Nitrogen 18, Creatinine 0.69, Estimat Glomerular Filtration Rate 97, BUN/Creatinine Ratio 26, Glucose Level 131H, Calcium Level 11.5H, Corrected Calcium 11.8H, Total Bilirubin 0.5, Aspartate Amino Transf (AST/SGOT) 14, Alanine Aminotransferase (ALT/SGPT) 26, Alkaline Phosphatase 73, Total Protein 6.3L, Albumin 3.6 09/26/22 11:11: Glucometer 108 09/26/22 16:15: Glucometer 170H Microbiology 09/21/22 Urine Culture - Final, Complete See Comments 09/21/22 Blood Culture - Preliminary, Resulted No growth Pending Labs Microbiology Date/Time Source Procedure Growth Status 09/21/22 23:09 Urine Clean Catch Urine Culture - Final See Comments Complete 09/21/22 22:08 Peripheral Left Wrist Blood Culture - Preliminary No growth Resulted 09/21/22 21:30 Peripheral Rt Forearm Blood Culture - Preliminary No growth Resulted Laboratory Tests 09/21/22 21:28: Influenza Type A (RT-PCR) Not Detected, Influenza Type B (RT-PCR) Not Detected, SARS-CoV-2 RNA (RT-PCR) Not Detected 09/21/22 21:30: White Blood Count 13.7, Red Blood Count 5.16, Hemoglobin 11.0, Hematocrit 41, Mean Corpuscular Volume 80, Mean Corpuscular Hemoglobin 21, Mean Corpuscular Hemoglobin Concent 27, Red Cell Distribution Width 19.9, Platelet Count 240, Mean Platelet Volume 12.1, Immature Granulocyte % (Auto) 1, Neutrophils (%) (Auto) 84, Lymphocytes (%) (Auto) 8, Monocytes (%) (Auto) 6, Eosinophils (%) (Auto) 0, Basophils (%) (Auto) 1, Neutrophils # (Auto) 11.5, Lymphocytes # (Auto) 1.1, Monocytes # (Auto) 0.8, Eosinophils # (Auto) 0.0, Basophils # (Auto) 0.1, Immature Granulocyte # (Auto) 0.1, Neutrophils % (Manual) 80, Lymphocytes % (Manual) 5, Monocytes % (Manual) 7, Band Neutrophils 6, Nucleated Red Blood Cells 4, Reactive Lymphocytes 2, Percent Immature Platelet Fraction 9.9, Polychromasia MODERATE, Hypochromasia SLIGHT, Anisocytosis MODERATE, Prothrombin Time 13.6, INR Comment 1.0, Activated Partial Thromboplast Time 29, D-Dimer 0.79, Sodium Level 137, Potassium Level 4.4, Chloride Level 99, Carbon Dioxide Level 27, Anion Gap 11, Blood Urea Nitrogen 14, Creatinine 0.85, Estimat Glomerular Filtration Rate 76, BUN/Creatinine Ratio 16, Glucose Level 166, Lactic Acid Level 2.30, Calcium Level 10.6, Corrected Calcium 10.7, Magnesium Level 2.1, Total Bilirubin 0.8, Aspartate Amino Transf (AST/SGOT) 33, Alanine Aminotransferase (ALT/SGPT) 22, Alkaline Phosphatase 89, Total Creatine Kinase 2 8, Creatine Kinase MB 0.7, Myoglobin 25.8, Troponin I 0.072, B-Type Natriuretic Peptide 294.2, Total Protein 7.4, Albumin 3.9 09/21/22 21:46: Blood Gas Puncture Site RRAD, Blood Gas Patient Temperature 37.6, Arterial Blood pH 7.36, Arterial Blood Partial Pressure CO2 59, Arterial Blood Partial Pressure O2 71, Arterial Blood HCO3 32, Arterial Blood Total CO2 34.2, Arterial Blood Oxygen Saturation 94, Arterial Blood Base Excess 7.2, Zenon Test YES-POS, Blood Gas Ventilator Setting NO, Blood Gas Inspired Oxygen 10 09/21/22 23:09: Urine Color YELLOW, Urine Clarity SL CLOUDY, Urine pH 6.0, Urine Specific Amlin 1.025, Urine Protein 1+, Urine Glucose (UA) NEGATIVE, Urine Ketones NEGATIVE, Urine Nitrite NEGATIVE, Urine Bilirubin NEGATIVE, Urine Urobilinogen 1.0, Urine Leukocyte Esterase TRACE, Urine RBC (Auto) NEGATIVE, Urine RBC RARE, Urine WBC 2-5, Urine Squamous Epithelial Cells 2-5, Urine Crystals NONE, Urine Bacteria MODERATE, Urine Casts PRESENT, Urine Hyaline Casts 0-2, Urine Mucus MODERATE, Urine Culture Indicated CULTURE PENDING 09/21/22 23:30: Lactic Acid Level 1.87 09/22/22 05:08: Lactic Acid Level 1.03, White Blood Count 15.9, Red Blood Count 5.03, Hemoglobin 10.8, Hematocrit 41, Mean Corpuscular Volume 81, Mean Corpuscular Hemoglobin 22, Mean Corpuscular Hemoglobin Concent 26, Red Cell Distribution Width 19.6, Platelet Count 209, Mean Platelet Volume 12.0, Immature Granulocyte % (Auto) 1, Neutrophils (%) (Auto) 94, Lymphocytes (%) (Auto) 4, Monocytes (%) (Auto) 1, Eosinophils (%) (Auto) 0, Basophils (%) (Auto) 0, Neutrophils # (Auto) 14.9, Lymphocytes # (Auto) 0.7, Monocytes # (Auto) 0.2, Eosinophils # (Auto) 0.0, Basophils # (Auto) 0.1, Immature Granulocyte # (Auto) 0.2, Percent Immature Platelet Fraction 11.0, Sodium Level 139, Potassium Level 4.6, Chloride Level 102, Carbon Dioxide Level 28, Anion Gap 9, Blood Urea Nitrogen 15, Creatinine 0.81, Estimat Glomerular Filtration Rate 81, BUN/Creatinine Ratio 19, Glucose Level 222, Calcium Level 10.2, Corrected Calcium 10.4, Phosphorus Level 3.9, Magnesium Level 2.2, Total Bilirubin 0.4, Aspartate Amino Transf (AST/SGOT) 25, Alanine Aminotransferase (ALT/SGPT) 26, Alkaline Phosphatase 95, Troponin I 0.057, B-Type Natriuretic Peptide 561.6, Total Protein 7.1, Albumin 3.8 09/22/22 10:53: Glucometer 179 09/22/22 20:41: Glucometer 191 09/23/22 05:40: White Blood Count 16.4, Red Blood Count 4.31, Hemoglobin 9.4, Hematocrit 36, Mean Corpuscular Volume 83, Mean Corpuscular Hemoglobin 22, Mean Corpuscular Hemoglobin Concent 26, Red Cell Distribution Width 19.0, Platelet Count 185, Mean Platelet Volume 12.0, Immature Granulocyte % (Auto) 1, Neutrophils (%) (Auto) 91, Lymphocytes (%) (Auto) 4, Monocytes (%) (Auto) 5, Eosinophils (%) (Auto) 0, Basophils (%) (Auto) 0, Neutrophils # (Auto) 14.9, Lymphocytes # (Auto) 0.6, Monocytes # (Auto) 0.8, Eosinophils # (Auto) 0.0, Basophils # (Auto) 0.0, Immature Granulocyte # (Auto) 0.1, Sodium Level 140, Potassium Level 4.8, Chloride Level 103, Carbon Dioxide Level 26, Anion Gap 11, Blood Urea Nitrogen 21, Creatinine 0.79, Estimat Glomerular Filtration Rate 83, BUN/Creatinine Ratio 27, Glucose Level 227, Calcium Level 10.3, Corrected Calcium 10.8, Phosphorus Level 2.8, Magnesium Level 2.3, Total Bilirubin 0.2, Aspartate Amino Transf (AST/SGOT) 17, Alanine Aminotransferase (ALT/SGPT) 21, Alkaline Phosphatase 84, Total Protein 6.3, Albumin 3.4 09/23/22 05:51: Glucometer 211 09/23/22 15:47: Glucometer 194 09/23/22 17:20: Hemoglobin 9.2, Hematocrit 35 09/23/22 21:27: Glucometer 156 09/24/22 05:19: White Blood Count 12.3, Red Blood Count 4.12, Hemoglobin 8.8, Hematocrit 33, Mean Corpuscular Volume 81, Mean Corpuscular Hemoglobin 21, Mean Corpuscular Hemoglobin Concent 26, Red Cell Distribution Width 18.7, Platelet Count 189, Mean Platelet Volume 12.3, Immature Granulocyte % (Auto) 1, Neutrophils (%) (Auto) 91, Lymphocytes (%) (Auto) 5, Monocytes (%) (Auto) 4, Eosinophils (%) (Auto) 0, Basophils (%) (Auto) 0, Neutrophils # (Auto) 11.1, Lymphocytes # (Auto) 0.6, Monocytes # (Auto) 0.5, Eosinophils # (Auto) 0.0, Basophils # (Auto) 0.0, Immature Granulocyte # (Auto) 0.1, Sodium Level 140, Potassium Level 4.9, Chloride Level 104, Carbon Dioxide Level 29, Anion Gap 7, Blood Urea Nitrogen 23, Creatinine 0.71, Estimat Glomerular Filtration Rate 95, BUN/Creatinine Ratio 32, Glucose Level 174, Calcium Level 10.3, Corrected Calcium 10.8, Phosphorus Level 2.4, Magnesium Level 2.2, Total Bilirubin 0.3, Aspartate Amino Transf (AST/SGOT) 13, Alanine Aminotransferase (ALT/SGPT) 20, Alkaline Phosphatase 79, Total Protein 6.0, Albumin 3.4 09/24/22 06:35: Blood Gas Puncture Site RR, Blood Gas Patient Temperature 35.6, Arterial Blood pH 7.36, Arterial Blood Partial Pressure CO2 58, Arterial Blood Partial Pressure O2 68, Arterial Blood HCO3 33, Arterial Blood Total CO2 34.4, Arterial Blood Oxygen Saturation 95, Arterial Blood Base Excess 6.9, Zenon Test YES-POS, Blood Gas Ventilator Setting NO, Blood Gas Inspired Oxygen 6L 09/24/22 10:41: Glucometer 135 09/24/22 16:07: Glucometer 189 09/24/22 21:15: Glucometer 135 09/25/22 05:36: White Blood Count 9.6, Red Blood Count 4.33, Hemoglobin 9.2, Hematocrit 35, Mean Corpuscular Volume 80, Mean Corpuscular Hemoglobin 21, Mean Corpuscular Hemoglobin Concent 26, Red Cell Distribution Width 18.6, Platelet Count 143, Mean Platelet Volume , Immature Granulocyte % (Auto) 1, Neutrophils (%) (Auto) 86, Lymphocytes (%) (Auto) 9, Monocytes (%) (Auto) 5, Eosinophils (%) (Auto) 0, Basophils (%) (Auto) 0, Neutrophils # (Auto) 8.2, Lymphocytes # (Auto) 0.8, Monocytes # (Auto) 0.5, Eosinophils # (Auto) 0.0, Basophils # (Auto) 0.0, Immature Granulocyte # (Auto) 0.1, Percent Immature Platelet Fraction 15.5, Sodium Level 138, Potassium Level 5.3, Chloride Level 104, Carbon Dioxide Level 26, Anion Gap 8, Blood Urea Nitrogen 24, Creatinine 0.70, Estimat Glomerular Filtration Rate 97, BUN/Creatinine Ratio 34, Glucose Level 176, Calcium Level 10.6, Corrected Calcium 11.2, Iron Level 23, Total Bilirubin 0.2, Aspartate Amino Transf (AST/SGOT) 30, Alanine Aminotransferase (ALT/SGPT) 22, Alkaline Phosphatase 69, Total Protein 6.2, Albumin 3.3, Vitamin B12 Level [Pending] 09/25/22 10:29: Glucometer 160 09/25/22 15:29: Glucometer 105 09/25/22 21:10: Glucometer 146 09/26/22 05:12: White Blood Count 9.2, Red Blood Count 4.64, Hemoglobin 9.7, Hematocrit 36, Mean Corpuscular Volume 78, Mean Corpuscular Hemoglobin 21, Mean Corpuscular Hemoglobin Concent 27, Red Cell Distribution Width 18.3, Platelet Count 250, [place] n Platelet Volume 12.2, Immature Granulocyte % (Auto) 1, Neutrophils (%) (Auto) 87, Lymphocytes (%) (Auto) 9, Monocytes (%) (Auto) 4, Eosinophils (%) (Auto) 0, Basophils (%) (Auto) 0, Neutrophils # (Auto) 8.0, Lymphocytes # (Auto) 0.8, Monocytes # (Auto) 0.4, Eosinophils # (Auto) 0.0, Basophils # (Auto) 0.0, Immature Granulocyte # (Auto) 0.1, Sodium Level 138, Potassium Level 4.5, Chloride Level 100, Carbon Dioxide Level 30, Anion Gap 8, Blood Urea Nitrogen 18, Creatinine 0.69, Estimat Glomerular Filtration Rate 97, BUN/Creatinine Ratio 26, Glucose Level 131, Calcium Level 11.5, Corrected Calcium 11.8, Total Bilirubin 0.5, Aspartate Amino Transf (AST/SGOT) 14, Alanine Aminotransferase (ALT/SGPT) 26, Alkaline Phosphatase 73, Total Protein 6.3, Albumin 3.6 09/26/22 11:11: Glucometer 108 09/26/22 16:15: Glucometer 170 Discharge Home Medications: Active Scripts Active Eliquis (Apixaban) 5 Mg Tablet 5 Mg PO BID Cefdinir 300 Mg Capsule 300 Mg PO BID Prednisone 10 Mg Tab.ds.pk 10 Mg PO DAILY Take 6 tabs(60mg)daily,decrease by 1 tab(10MG)daily. Pantoprazole Sodium 40 Mg Tablet.dr 40 Mg PO DAILY Montelukast Sodium 10 Mg Tablet 10 Mg PO HS Nurtec Odt (Rimegepant Sulfate) 75 Mg Tab.rapdis 75 Mg PO PRN Reported Hydrochlorothiazide 25 Mg Tablet 25 Mg PO DAILY Fluticasone Propionate 50 Mcg/Actuation Comstock.susp 1 Comstock NSEACH BID PRN Aspirin 81 Mg Tab.chew 81 Mg PO DAILY Vitamin D3 (Cholecalciferol (Vitamin D3)) 125 Mcg (5000 Unit) Tablet 125 Mcg PO DAILY Fexofenadine HCl 180 Mg Tablet 180 Mg PO DAILY Magnesium (Magnesium Oxide) 400 Mg Magnesium Tablet 400 Mg PO DAILY [Berberine W/Cinnamon] 2 Ea PO DAILY Coq-10 (Ubidecarenone) 100 Mg Capsule 100 Mg PO DAILY Probiotic (L.acidoph & Paracasei,B.lactis) 10 Billion Cell Capsule 1 Each PO DAILY Super B Maxi Complex Caplet (Vitamin B Complex/Folic Acid) 0.4 Mg Tablet 0.4 Mg PO DAILY Ventolin Hfa (Albuterol Sulfate) 90 Mcg Hfa.aer.ad 2 Puff INH Q4H PRN Pravastatin Sodium 40 Mg Tablet 40 Mg PO DAILY Valacyclovir (Valacyclovir HCl) 500 Mg Tablet 500 Mg PO DAILY Valsartan 320 Mg Tablet 320 Mg PO DAILY Amlodipine Besylate 5 Mg Tablet 5 Mg PO DAILY Ondansetron HCl 4 Mg Tablet 4 Mg PO Q6H PRN Glimepiride 2 Mg Tablet 2 Mg PO DAILY Ferosul (Ferrous Sulfate) 325 Mg (65 Mg Iron) Tablet 325 Mg PO Q48H Instructions to patient/family Please see electronic discharge instructions given to patient. Clinical Quality Measures DVT/VTE Risk/Contraindication: Contraindications-Pharm: Other *list below* Other: SUNDEEP MUNGUIA DO Sep 26, 2022 15:26
== END 2022-09-26 18:50 | disposition home or self-care (01) | DRG 871 ==
LOC: EDUNIT# 21:20 → ER 21:22 → ICU 09-22 01:04 → 4TH 09-23 15:03 → ICU 09-23 16:50 → CSD 09-25 16:36 → 4TH 09-25 18:22
PROVIDERS: ADMIT Internal Medicine; ATTEND Internal Medicine
PROC: 5A09357 Assistance with Respiratory Ventilation, Less than 24 Consecutive Hours, Continuous Positive Airway Pressure (ICD-10-PCS; 2022-09-22)
PROC: 5A0945A Assistance with Respiratory Ventilation, 24-96 Consecutive Hours, High Flow/Velocity Cannula (ICD-10-PCS; 2022-09-22)
PROC: 0DJ08ZZ Inspection of Upper Intestinal Tract, Via Natural or Artificial Opening Endoscopic (ICD-10-PCS; principal; 2022-09-24 10:55)
PROC: 0DJD8ZZ Inspection of Lower Intestinal Tract, Via Natural or Artificial Opening Endoscopic (ICD-10-PCS; 2022-09-24 10:55)
PROC: 0DBM8ZZ Excision of Descending Colon, Via Natural or Artificial Opening Endoscopic (ICD-10-PCS; 2022-09-26)
PROC: 0DBN8ZZ Excision of Sigmoid Colon, Via Natural or Artificial Opening Endoscopic (ICD-10-PCS; 2022-09-26)
DX: A41.9 Sepsis, unspecified organism (principal); I21.A1 Myocardial infarction type 2; I26.99 Other pulmonary embolism without acute cor pulmonale; J18.9 Pneumonia, unspecified organism; J96.01 Acute respiratory failure with hypoxia; J96.02 Acute respiratory failure with hypercapnia; K29.01 Acute gastritis with bleeding; K57.31 Diverticulosis of large intestine without perforation or abscess with bleeding; E87.20 Acidosis, unspecified; Z87.891 Personal history of nicotine dependence; I10 Essential (primary) hypertension; E11.9 Type 2 diabetes mellitus without complications; E78.00 Pure hypercholesterolemia, unspecified; E66.9 Obesity, unspecified; Z20.822 Contact with and (suspected) exposure to COVID-19; Z86.16 Personal history of COVID-19; G47.33 Obstructive sleep apnea (adult) (pediatric); I27.20 Pulmonary hypertension, unspecified; D64.9 Anemia, unspecified; K63.5 Polyp of colon; K64.8 Other hemorrhoids; K44.9 Diaphragmatic hernia without obstruction or gangrene; Z68.38 Body mass index [BMI] 38.0-38.9, adult
CPT/HCPCS: 36415; 36600; 71045; 71275; 80053; 81000; 82550; 82553; 82607; 82805; 82947; 83540; 83605; 83735; 83874; 83880; 84100; 84484; 85007; 85014; 85018; 85025; 85027; 85379; 85610; 85730; 87040; 87088; 87636; 93005; 93041; 93306; 94640; 94660; 94664; 94761; 99291

== ENCOUNTER → 2022-09-21 | Outpatient (CLI) | payer BC ==
[~2022-09-21] MED LIST: ALBU18HF2 INH; AMLO-250 PO; ASPI-999 PO; BERBERINE PO; CHOL500044 PO; CINNAMON PO; FERR325T24 PO; FLUT16SP22 NSEACH; GLIM2TAB4 PO; HYDR25TA4 PO; IBUP-2185 PO; L.AC1CAP6 PO; MAGN400T39 PO; NF-ALLE180 PO; ONDA-105 PO; PRAV40TA2 PO; RIME75TA PO; UBID100C17 PO; VALA500T7 PO; VALS320T15 PO; VITA0.4T18 PO
--- NOTE | 2022-09-21 15:44 | Diagnostic Imaging Report ---
INDICATION: Left lower extremity pain and swelling. COMPARISON: None. TECHNIQUE: Duplex, lara-scale and color-flow imaging of the left lower extremity venous system was performed. FINDINGS: The common femoral vein, superficial femoral vein, profunda femoris, and popliteal veins are normal. These vessels show normal compressibility, color flow, and doppler augmentation. The deep calf veins, although not very well seen, demonstrate no distinct intraluminal thrombus. IMPRESSION: Negative venous Doppler of the left lower extremity. Dictated by: Dictated on workstation # [id number]
== END ==
LOC: RAD 14:38
PROVIDERS: ATTEND Nurse Practitioner Family
DX: M79.605 Pain in left leg (principal); M79.89 Other specified soft tissue disorders